=== PATIENT | female | born 1970 | race Caucasian/White ===

== ENCOUNTER 2016-09-23 13:03 | Emergency (ER) ==
[2016-09-23 13:11] VITALS: BP 170/117; TEMP 97; BMI 38.0
[2016-09-23] MEDS ORDERED: NORVASC PO STA (13:30)
[2016-09-23 13:45] LABS: BASOPHILS % (AUTO) 0.5 % (0.0-3.0); EOSINOPHILS # (AUTO) 0.4 K/ul (0.0-0.7); EOSINOPHILS % (AUTO) 4.7 % (0.0-7.0); HEMATOCRIT 40.8 % (37.0-47.0); HEMOGLOBIN 13.2 g/dl (12.0-16.0); IMMATURE GRANULOCYTE % (AUTO) 0.5 % (0.0-5.0); LYMPHOCYTES # (AUTO) 3.3 K/uL (0.60-3.4); LYMPHOCYTES % (AUTO) 38.3 (10.0-50.0); MEAN CORPUSCULAR HEMOGLOBIN 28.4 pg (27.0-31.0); MEAN CORPUSCULAR HGB CONC 32.4 (31.8-35.4); MEAN CORPUSCULAR VOLUME 87.9 fl (81.0-99.0); MONOCYTES # (AUTO) 0.5 K/uL (0.4-2.0); MONOCYTES % (AUTO) 6.1 (0-10); NEUTROPHILS # (AUTO) 4.3 K/ul (2.0-6.9); NEUTROPHILS % (AUTO) 49.9; PLATELET COUNT 256 10^3/uL (140-440); RED BLOOD COUNT 4.64 10^6/ul (4.20-5.40); WHITE BLOOD COUNT 8.65 K/ul (4.6-10.2)
--- NOTE | 2016-09-23 14:00 | CT ---
EXAM: CT head without contrast. HISTORY: Dizziness. Elevated blood pressure. COMPARISON: None available. TECHNIQUE: Multiple axial images of the brain were obtained from the skull base through the vertex without intravenous contrast. FINDINGS: There is no intracranial hemorrhage or extraaxial collection. The rogers-white differentia tion is maintained without evidence for acute large vascular territory infarction. The cortical sul ci and basal cisterns are well visualized. There is no hydrocephalus, mass effect, or midline shift . The paranasal sinuses and mastoid air cells are clear. The calvarium is intact. IMPRESSION: No acute intracranial abnormality.
[2016-09-23 14:20] LABS: ALANINE AMINOTRANSFERASE 55 U/L (12-78); ALBUMIN/GLOBULIN RATIO 1.21; ALKALINE PHOSPHATASE 92 U/L (42-98); ANION GAP 15.2; ASPARTATE AMINO TRANSFERASE 54 U/L (15-37); BILIRUBIN,TOTAL 0.63 mg/dL (0.00-1.20); BLOOD UREA NITROGEN 7 mg/dL (7-18); BUN/CREATININE RATIO 9.45; CALCIUM 9.9 mg/dL (8.2-10.2); CARBON DIOXIDE 29 mmol/L (21-32); CHLORIDE 104 mmol/L (98-107); CREATINE KINASE 125 U/L; CREATININE 0.74 mg/dL (0.60-1.30); GLUCOSE 111 mg/dL (70-110); POTASSIUM 4.2 mmol/L (3.5-5.10); SODIUM 144 mmol/L (136-145); TOTAL PROTEIN 7.3 g/dL (6.4-8.2)
[2016-09-23 14:22] LABS: CREATINE KINASE MB 1.4 ng/ml (0.0-3.6)
--- NOTE | 2016-09-23 14:59 | ED.PDOC ---
General ED Provider: Dr. COLETTE MENDOSA-ER Chief Complaint: Dizziness Stated Complaint: my eye hurts--dr acosta did surgtery on on 5 years ago Time Seen by Physician: 13:05 Mode of Arrival: Walk-In Information Source: Patient, Family Exam Limitations: No limitations Primary Care Provider: LYNN MAHARAJ Nursing and Triage Documentation Reviewed and Agree: Yes EENT Complaint Exam - Eye Complaint/Exam Onset/Duration: 12hrs Symptoms Are: Still present Timing: Constant Initial Severity: Mild Current Severity: Mild Location: Left Character: Reports: Dull Aggravating: Reports: Light Alleviating: Reports: Darkness Associated Signs and Symptoms: Reports: Photophobia. Denies: Clear drainage, Purulent drainage, Vision impairment, Fever, Swelling Related History: Reports: Similar episode Eye Surgical History: Reports: Glaucoma Surgery Penetrating Injury Risk Factors: None Globe Rupture Risk Factors: None Acute Glaucoma Risk Factors: None Optic Artery Occlusion Risk Factors: None Visual Acuity Left Eye: diminished Visual Field: Abnormal Extraocular Movement: Normal Orbit Findings: Normal Globe Findings: Intact Lid Findings: Normal Conjunctival Findings: Red Corneal Findings: Clear Fluorescein Uptake: No Fundi: Normal Differential Diagnoses: Other Review of Systems - Review Of Systems Constitutional: Reports: No symptoms Eyes: Reports: Inflammation, Pain, Shadows Ears, Nose, Mouth, Throat: Reports: No symptoms Respiratory: Reports: No symptoms Cardiac: Reports: No symptoms GI: Reports: No symptoms : Reports: No symptoms Musculoskeletal: Reports: No symptoms Skin: Reports: No symptoms Neurological: Reports: No symptoms Endocrine: Reports: No symptoms Hematologic/Lymphatic: Reports: No symptoms All Other Systems: Reviewed and Negative Past Medical History - Past Medical History Endocrine: Reports: Hypothyroid, Dyslipidemia Cardiovascular: Reports: CAD, Hypertension Respiratory: Reports: None Hematological: Reports: None Gastrointestinal: Reports: None Genitourinary: Reports: None Neuro/Psych: Reports: None Musculoskeletal: Reports: Unknown Cancer: Reports: None Last Menstrual Period: N/A Other Pertinent Past Medical History: Arthritis, Glaucoma - Surgical History General Surgical History: Reports: Tubal ligation (25 years ago ), Other (Left eye surgery x 2 ) - Family History Family History: Reports: None - Social History Smoking Status: Former smoker Hx Substance Use: No Alcohol Screening: None Lives: With family - Immunizations Tetanus Shot up to Date: Yes Physical Exam - Physical Exam Appearance: Well-appearing Pain Distress: Mild Eyes: Conjunctiva inflammed ENT: Ears normal, Nose normal, Oropharynx normal Neck: Supple Respiratory: Airway patent Cardiovascular: RRR, Pulses normal, No rub, No murmur GI/: Soft Musculoskeletal: Normal strength, ROM intact, No edema, No calf tenderness Skin: Warm, Dry, Normal color Neurological: Sensation intact, Motor intact, Reflexes intact, Cranial nerves intact, Alert, Oriented Psychiatric: Affect appropriate Physician Notification - Case Discussed Physician Notified: dr wheeler--asked she come to the office at 4pm Time of Notification: 15:00 Critical Care Note - Critical Care Note Total Time (mins): 0 Course - Course Hematology/Chemistry: 09/23/16 13:40 09/23/16 13:40 Orders, Labs, Meds: Lab Review 09/23/16 13:40 WBC 8.65 RBC 4.64 Hgb 13.2 Hct 40.8 MCV 87.9 MCH 28.4 MCHC 32.4 RDW Coeff of Lalo 13.8 Plt Count 256 Immature Gran % (Auto) 0.5 Neut % (Auto) 49.9 Lymph % (Auto) 38.3 Kings % (Auto) 6.1 Eos % (Auto) 4.7 Baso % (Auto) 0.5 Immature Gran # (Auto) 0.0 Neut # 4.3 Lymph # 3.3 Kings # 0.5 Eos # 0.4 Baso # 0.0 Sodium 144 Potassium 4.2 Chloride 104 Carbon Dioxide 29 Anion Gap 15.2 BUN 7 Creatinine 0.74 Estimated GFR (MDRD) 84.00 BUN/Creatinine Ratio 9.45 Glucose 111 H Calcium 9.9 Total Bilirubin 0.63 AST 54 H ALT 55 Alkaline Phosphatase 92 Total Creatine Kinase 125 CK-MB (CK-2) 1.4 CK-MB (CK-2) % 1.76952 Troponin I < 0.0100 Total Protein 7.3 Albumin 4.0 Globulin 3.3 Albumin/Globulin Ratio 1.21 Orders Category Date Time Status EKG-(ED ONLY) Stat CARDIO 09/23/16 13:29 Completed CBC W/ AUTO DIFF Stat LAB 09/23/16 13:40 Completed COMPREHENSIVE METABOLIC PANEL Stat LAB 09/23/16 13:40 Completed CREATINE KINASE Stat LAB 09/23/16 13:40 Completed TROPONIN I Stat LAB 09/23/16 13:40 Completed Amlodipine Besylate [Norvasc] MEDS 09/23/16 13:30 Discontinued 5 mg PO ONCE STA CT HEAD W/O CONTRAST Stat RADS 09/23/16 13:30 Completed Medications Discontinued Medications Generic Name Dose Route Start Last Admin Trade Name Smith PRN Reason Stop Dose Admin Amlodipine Besylate 5 mg 09/23/16 13:30 09/23/16 13:41 Norvasc PO 09/23/16 13:31 5 mg ONCE STA Administration Vital Signs: Temp Pulse Resp BP Pulse Ox 09/23/16 13:03 97 F L 69 20 170/117 H 98 Departure - Departure Time of Disposition: 15:00 Disposition: HOME SELF-CARE Discharge Problem: Pain in eye Qualifiers: Laterality: left Qualifier Code: (H57.12) Ocular pain, left eye Instructions: Eye Pain (ED), Blurred Vision (ED) Condition: Good Pt referred to PMD for follow-up: Yes Additional Instructions: f/u with dr wheeler today at 4pm Allergies/Adverse Reactions: Allergies acetaminophen [From Lortab] Adverse Reaction (Intermediate, Verified 09/23/16 13 :13) Itching hydrocodone bitartrate [From Lortab] Adverse Reaction (Intermediate, Verified 13:13) Itching codeine [Codeine] Adverse Reaction (Verified 09/23/16 13:13) egg Adverse Reaction (Verified 09/23/16 13:13) lanolin Adverse Reaction (Verified 09/23/16 13:13) prednisone Adverse Reaction (Verified 09/23/16 13:13) onions Allergy (Severe, Uncoded 09/23/16 13:13) tongue itchy and numbness bottom lip peanuts Allergy (Mild, Uncoded 09/23/16 13:13) nausea tomatoes Allergy (Mild, Uncoded 09/23/16 13:13) Hawkins stomach Tape Adverse Reaction (Mild, Uncoded 09/23/16 13:13) Itching Pt reports that paper tape does not cause itching. Home Medications: Ambulatory Orders Albuterol Sulfate [Proventil Hfa] 1 puff INH BID 01/30/14 Aspirin [Aspirin EC] 325 mg PO DAILY 01/30/14 Timolol Maleate 0.5% [Timoptic 0.5% Opth] 1 drop INTRAOCULA BID 01/30/14 Disposition Discussed With: Patient, Family
== END 2016-09-23 15:06 | disposition home or self-care (01) ==
LOC: ED 13:03
DX: H57.12 Ocular pain, left eye (principal); R42 Dizziness and giddiness; E78.5 Hyperlipidemia, unspecified; I10 Essential (primary) hypertension; E03.9 Hypothyroidism, unspecified; I25.10 Atherosclerotic heart disease of native coronary artery without angina pectoris; Z79.899 Other long term (current) drug therapy; Z98.890 Other specified postprocedural states
CPT/HCPCS: 36415; 80053; 82550; 82553; 84484; 85025; 93005; 93010; 99283

== ENCOUNTER 2017-02-17 05:17 | Inpatient (IN) | payer OTHER ==
[2017-02-17 05:27] VITALS: BMI 35.6
[2017-02-17] MEDS ORDERED: SODIUM CHLORIDE 1,000 ML IV STA (05:40)
[2017-02-17] MEDS ORDERED: ROCEPHIN 1 GM in SODIUM CHLORIDE 50 ML IV STA (05:41)
[2017-02-17] MEDS ORDERED: MOTRIN SUSP PO STA ×2 (05:42→16:29)
--- NOTE | 2017-02-17 05:53 | ED.PDOC ---
General Stated Complaint: i think i have a kidney infection--it hurts in my back and i have fever and chills Time Seen by Physician: 05:30 Mode of Arrival: Walk-In Information Source: Patient Exam Limitations: No limitations Nursing and Triage Documentation Reviewed and Agree: Yes <MARCELACOLETTE - Last Filed: 02/17/17 06:56> <ELOY BARKLEY - Last Filed: 02/17/17 08:12> ED Provider: Dr. ELOY BARKLEY Chief Complaint: Back Pain [facility] Complaint Exam - UTI Female Complaint/Exam Patient Complains of: Reports: Painful urination Onset/Duration: less than 24hrs Symptoms Are: Still present Timing: Constant Initial Severity: Mild Current Severity: Mild Location of Pain: Reports: Flank Associated Signs and Symptoms: Reports: Fever, Chills, Flank pain Patient Rh Status: Unknown Related Surgical History: Reports: None CVA Tenderness: Yes Suprapubic Tenderness: No Differential Diagnoses: Pyelonephritis, Ureteral Calculus, Other <MARCELACOLETTE - Last Filed: 02/17/17 06:56> Review of Systems - Review Of Systems Constitutional: Reports: Chills, Fever Eyes: Reports: No symptoms Ears, Nose, Mouth, Throat: Reports: No symptoms Respiratory: Reports: No symptoms Cardiac: Reports: No symptoms GI: Reports: Abdominal pain, Nausea : Reports: Burning, Dysuria, Flank pain, Pain Musculoskeletal: Reports: Back pain Skin: Reports: No symptoms Neurological: Reports: No symptoms Endocrine: Reports: No symptoms Hematologic/Lymphatic: Reports: No symptoms All Other Systems: Reviewed and Negative <GUYLEONCOLETTE - Last Filed: 02/17/17 06:56> Past Medical History - Past Medical History Previously Healthy: Yes Endocrine: Reports: Hypothyroid, Dyslipidemia Cardiovascular: Reports: CAD, Hypertension Respiratory: Reports: None Hematological: Reports: None Gastrointestinal: Reports: None Genitourinary: Reports: None Neuro/Psych: Reports: None Musculoskeletal: Reports: Unknown Cancer: Reports: None Last Menstrual Period: 2 yrs ago Other Pertinent Past Medical History: Arthritis, Glaucoma - Surgical History General Surgical History: Reports: Tubal ligation (25 years ago ), Other (Left eye surgery x 2 ) - Family History Family History: Reports: None - Social History Smoking Status: Former smoker Hx Substance Use: No Alcohol Screening: None Lives: With family - Immunizations Tetanus Shot up to Date: Yes (2011) <COLETTE MEDRANO - Last Filed: 02/17/17 06:56> Physical Exam - Physical Exam Appearance: Ill-appearing Pain Distress: Mild Eyes: DELORES, EOMI, Conjunctiva clear ENT: Ears normal, Nose normal, Oropharynx normal Neck: Supple Respiratory: Airway patent, Breath sounds clear, Breath sounds equal, Respirations nonlabored Cardiovascular: RRR, Pulses normal, No rub, No murmur GI/: Soft, Nontender, No masses, Bowel sounds normal, No Organomegaly Musculoskeletal: Normal strength, ROM intact, No edema, No calf tenderness Skin: Warm Neurological: Sensation intact, Motor intact, Reflexes intact, Cranial nerves intact, Alert, Oriented Psychiatric: Affect appropriate, Mood appropriate, Anxious <COLETTE MEDRANO Last Filed: 02/17/17 06:56> Re-Evaluation - Re-Evaluation Time of Re-Evaluation: 08:00 (OFFERED NO OTHER COMPLAINTS AT THIS TIME ADMISSION DISCUSSED ) Status: Improved Vital Signs Stable: Yes Pain Level: 0 Appearance: NAD Lungs: Clear Skin: Warm and Dry Neuro: Alert and Oriented X3 CV: RRR <ELOY BARKLEY - Last Filed: 02/17/17 08:12> Physician Notification - Case Discussed Physician Notified: dr barkley Time of Notification: 07:00 <COLETTE MEDRANO - Last Filed: 02/17/17 06:56> - Case Discussed Physician Notified: [email or web address] Time of Notification: 08:11 (ADMITT) <ELOY BARKLEY Last Filed: 02/17/17 08:12> Critical Care Note - Critical Care Note Total Time (mins): 0 <ELOY BARKLEY Last Filed: 02/17/17 08:12> Course - Course Hematology/Chemistry: 02/17/17 06:00 02/17/17 06:00 <COLETTE MEDRANO - Last Filed: 02/17/17 06:56> - Course Hematology/Chemistry: 02/17/17 06:00 02/17/17 06:00 <ELOY BARKLEY Last Filed: 02/17/17 08:12> - Course Orders, Labs, Meds: Lab Review 02/17/17 02/17/17 02/17/17 05:45 05:48 06:00 WBC 10.31 H RBC 4.78 Hgb 13.8 Hct 41.2 MCV 86.2 MCH 28.9 MCHC 33.5 RDW Coeff of Lalo 14.2 Plt Count 218 Immature Gran % (Auto) 0.5 Neut % (Auto) 83.8 Lymph % (Auto) 11.0 [place] % (Auto) 3.0 Eos % (Auto) 1.4 Baso % (Auto) 0.3 Immature Gran # (Auto) 0.1 Neut # 8.7 H Lymph # 1.1 [place] # 0.3 L Eos # 0.1 Baso # 0.0 ESR 56 H Sodium 140 Potassium 3.7 Chloride 105 Carbon Dioxide 23 Anion Gap 15.7 BUN 9 Creatinine 0.84 Estimated GFR (MDRD) 72.00 BUN/Creatinine Ratio 10.71 Glucose 118 H Lactic Acid 22.5 H Calcium 9.9 Total Bilirubin 1.05 AST 30 ALT 37 Alkaline Phosphatase 99 H Total Creatine Kinase 217 CK-MB (CK-2) 1.5 CK-MB (CK-2) % 0.32932 Troponin I < 0.0100 Total Protein 8.1 Albumin 4.0 Globulin 4.1 Albumin/Globulin Ratio 0.98 Amylase 24 L Lipase 15 Procalcitonin 0.19 Urine Color Yellow Urine Clarity Cloudy Urine pH 5.5 Ur Specific Wheeler 1.020 Urine Protein 3+ Urine Glucose (UA) Negative Urine Ketones Negative Urine Blood 2+ Urine Nitrite Positive Urine Bilirubin Negative Urine Urobilinogen 0.2 Ur Leukocyte Esterase 1+ Urine Microscopic RBC 2-5 Urine Microscopic WBC 10-20 Ur Squamous Epith Cells Not present Urine Bacteria 2+ Influenza A (Rapid) Negative Influenza B (Rapid) Negative Orders Category Date Time Status EKG-(ED ONLY) Stat CARDIO 02/17/17 05:39 Ordered IV [ED IV/MEDIPORT/POWERPORT] .ONCE EMERGENCY 02/17/17 05:39 Active AMYLASE Stat LAB 02/17/17 06:00 Completed BLOOD CULTURE Stat LAB 02/17/17 06:00 Received CBC W/ AUTO DIFF Stat LAB 02/17/17 06:00 Completed COMPREHENSIVE METABOLIC PANEL Stat LAB 02/17/17 06:00 Completed CREATINE KINASE Stat LAB 02/17/17 06:00 Completed ESR Stat LAB 02/17/17 06:00 Completed LACTIC ACID Stat LAB 02/17/17 06:00 Completed LIPASE Stat LAB 02/17/17 06:00 Completed MOLECULAR GROUP A STREP Stat LAB 02/17/17 05:48 Results PROCALCITONIN Stat LAB 02/17/17 06:00 Completed RAPID FLU A/B Stat LAB 02/17/17 05:48 Completed STREP SCREEN Stat LAB 02/17/17 05:48 Results TROPONIN I Stat LAB 02/17/17 06:00 Completed URINALYSIS C & S IF INDICATED Stat LAB 02/17/17 05:45 Completed URINE CULTURE Stat LAB 02/17/17 06:18 Received 0.9 % Sodium Chloride [Saline Flush] MEDS 02/17/17 05:39 Active 1 syr IVF PRN PRN Ceftriaxone Sodium [Rocephin] MEDS 02/17/17 06:30 Discontinued 1 gm .ROUTE .STK-MED ONE Ceftriaxone Sodium [Rocephin] 1 gm MEDS 02/17/17 05:41 Discontinued 0.9 % Sodium Chloride [Sodium Chloride] 50 ml IV ONCE Ibuprofen Susp [Motrin Susp] MEDS 02/17/17 05:42 Discontinued 600 mg PO ONCE STA Lidocaine HCl/Pf [Lidocaine 1 % Amp 5 ml (Sutures)] MEDS 02/17/17 06:21 Discontinued 5 ml SUBCUT ONCE STA Sodium Chloride 0.9% [Sodium Chloride] 1,000 ml MEDS 02/17/17 05:40 Active IV 125 mls/hr CT ABDOMEN/PELVIS WO CONTRAST Stat RADS 02/17/17 05:[address] CHEST W/O CONTRAST Stat RADS 02/17/17 05:41 Completed Medications Generic Name Dose Route Start Last Admin Trade Name Freq PRN Reason Stop Dose Admin Sodium Chloride 1,000 mls @ 125 mls/hr 02/17/17 05:40 02/17/17 06:38 Sodium Chloride IV 02/17/17 13:39 125 mls/hr .Q8H STA Administration Sodium Chloride 1 syr 02/17/17 05:39 Saline Flush IVF PRN PRN To flush IV Discontinued Medications Generic Name Dose Route Start Last Admin Trade Name Freq PRN Reason Stop Dose Admin Ceftriaxone Sodium 1 gm/ 50 mls @ 75 mls/hr 02/17/17 05:41 02/17/17 06:38 Sodium Chloride IV 02/17/17 06:20 75 mls/hr ONCE STA Administration Ibuprofen 600 mg 02/17/17 05:42 02/17/17 06:08 Motrin Susp PO 02/17/17 05:43 600 mg ONCE STA Administration Lidocaine HCl 5 ml 02/17/17 06:21 02/17/17 06:29 Lidocaine 1 % Amp 5 Ml (Sutures) SUBCUT 02/17/17 06:22 5 ml ONCE STA Administration Vital Signs: Temp Pulse Resp BP Pulse Ox 02/17/17 07:52 100.2 F H 02/17/17 05:19 102.2 F H 102 H 21 183/125 H 100 Departure <COLETTE MEDRANO - Last Filed: 02/17/17 06:56> - Departure Time of Disposition: 08:08 (obtained report from guy TALAVERA at 7 [address] pt off to [address] SCAN , seen pt at [address] report discuused along with all labs hattie and sita present , pt agrees with admission) Pt referred to PMD for follow-up: Yes (admitt) <ELOY BARKLEY - Last Filed: 02/17/17 08:12> - Departure Disposition: ADMITTED INPATIENT Discharge Problem: UTI (urinary tract infection) Qualifiers: Urinary tract infection type: site unspecified Instructions: Urinary Tract Infection in Women (ED) Condition: Good Allergies/Adverse Reactions: Allergies acetaminophen [From Lortab] Adverse Reaction (Intermediate, Verified 02/17/17 05 :42) Itching hydrocodone bitartrate [From Lortab] Adverse Reaction (Intermediate, Verified 05:42) Itching codeine [Codeine] Adverse Reaction (Verified 02/17/17 05:42) egg Adverse Reaction (Verified 02/17/17 05:42) lanolin Adverse Reaction (Verified 02/17/17 05:42) prednisone Adverse Reaction (Verified 02/17/17 05:42) onions Allergy (Severe, Uncoded 02/17/17 05:42) tongue itchy and numbness bottom lip peanuts Allergy (Mild, Uncoded 02/17/17 05:42) nausea tomatoes Allergy (Mild, Uncoded 02/17/17 05:42) Hawkins stomach Tape Adverse Reaction (Mild, Uncoded 02/17/17 05:42) Itching Pt reports that paper tape does not cause itching. Home Medications: Ambulatory Orders Albuterol Sulfate [Proventil Hfa] 1 puff INH BID 01/30/14 Aspirin [Aspirin EC] 325 mg PO DAILY 01/30/14 Timolol Maleate 0.5% [Timoptic 0.5% Opth] 1 drop INTRAOCULA BID 01/30/14 Latanoprost [Xalatan] 1 drop OP BEDTIME 02/17/17
[2017-02-17 06:05] LABS: BASOPHILS % (AUTO) 0.3 % (0.0-3.0); EOSINOPHILS # (AUTO) 0.1 K/ul (0.0-0.7); EOSINOPHILS % (AUTO) 1.4 % (0.0-7.0); HEMATOCRIT 41.2 % (37.0-47.0); HEMOGLOBIN 13.8 g/dl (12.0-16.0); IMMATURE GRANULOCYTE % (AUTO) 0.5 % (0.0-5.0); LYMPHOCYTES # (AUTO) 1.1 K/uL (0.60-3.4); MEAN CORPUSCULAR HEMOGLOBIN 28.9 pg (27.0-31.0); MEAN CORPUSCULAR HGB CONC 33.5 (31.8-35.4); MEAN CORPUSCULAR VOLUME 86.2 fl (81.0-99.0); MONOCYTES # (AUTO) 0.3 K/uL (0.4-2.0); NEUTROPHILS # (AUTO) 8.7 K/ul (2.0-6.9); NEUTROPHILS % (AUTO) 83.8; PLATELET COUNT 218 10^3/uL (140-440); RED BLOOD COUNT 4.78 10^6/ul (4.20-5.40); WHITE BLOOD COUNT 10.31 K/ul (4.6-10.2)
[2017-02-17 06:10] LABS: BILIRUBIN,URINE Negative (NEGATIVE); KETONES,URINE Negative (NEGATIVE); LEUKOCYTE ESTERASE ,URINE 1+ (NEGATIVE); NITRITE,URINE Positive (NEGATIVE); PH,URINE 5.5 (5-9); PROTEIN,URINE 3+ (NEGATIVE); URINE, BLOOD 2+ (NEGATIVE)
[2017-02-17 06:14] LABS: ADD URINE MICROSCOPIC YES
[2017-02-17 06:18] LABS: BACTERIA,URINE 2+ (NOT PRESENT)
[2017-02-17 06:21] LABS: FLU INTERNAL QC INTERNAL QC VALID; RAPID FLU A NEGATIVE (NEGATIVE); RAPID FLU B NEGATIVE (NEGATIVE)
[2017-02-17] MEDS ORDERED: LIDOCAINE 1 % AMP 5 ML (SUTURES) SUBCUT STA (06:21)
[2017-02-17] MEDS ORDERED: ROCEPHIN ONE (06:30)
--- NOTE | 2017-02-17 06:35 | ED.PDOC ---
Procedures - IV/Art Line Insertion Location: Rt wrist Type of Line: Peripheral IV Invasive Line/IV Catheter Gauge: 24 Number of Attempts: 1 Blood Return Positive: Yes Invasive Line/IV Flushes Without Difficulty: Yes Conscious Sedation - Pre-op Assessment Weight: 195 lb Surgical History: TUBAL at 20 years old. LEFT EYE X1. GLAUCOMA - Medical History Past Medical History: Hypertension, Thyroid, High Lipids, Asthma, Arthritis Other History: NONE - Physical Exam Heart Rate/Rhythm: Regular Rhythm
[2017-02-17 06:37] LABS: ERYTHROCYTE SEDIMENTATION RATE 56 mm/hr (0-20); ESR INTERNAL QC INTERNAL QC VALID
[2017-02-17 06:41] LABS: ALANINE AMINOTRANSFERASE 37 U/L (12-78); ALBUMIN/GLOBULIN RATIO 0.98; ALKALINE PHOSPHATASE 99 U/L (42-98); AMYLASE 24 U/L (25-115); ANION GAP 15.7; ASPARTATE AMINO TRANSFERASE 30 U/L (15-37); BILIRUBIN,TOTAL 1.05 mg/dL (0.00-1.20); BLOOD UREA NITROGEN 9 mg/dL (7-18); BUN/CREATININE RATIO 10.71; CALCIUM 9.9 mg/dL (8.2-10.2); CARBON DIOXIDE 23 mmol/L (21-32); CHLORIDE 105 mmol/L (98-107); CREATINE KINASE 217 U/L; CREATININE 0.84 mg/dL (0.60-1.30); GLUCOSE 118 mg/dL (70-110); LIPASE 15 U/L (8-78); POTASSIUM 3.7 mmol/L (3.5-5.10); SODIUM 140 mmol/L (136-145); TOTAL PROTEIN 8.1 g/dL (6.4-8.2)
[2017-02-17 06:42] LABS: CREATINE KINASE MB 1.5 ng/ml (0.0-3.6)
--- NOTE | 2017-02-17 07:27 | CT ---
Exam: CT of the chest without contrast History: Fever and cough Technique: [address] of the chest without intravascular contrast FINDINGS: The lung windows show no infiltrative opacities, pleural fluid or pneumothorax. There is a 3.4 mm nodule in the right lower lobe. Additional equivalent or smaller nodules of the right and left lower lobe. Minor atherosclerotic calcification of the aorta. The heart, great vessels and pe ricardium are unremarkable otherwise. No acute findings of the chest wall soft tissues or bony thor ax. Impression: 1. Right lower lobe 3.4 mm nodule stable from 02/02/2015, benign. Additional equivalent or smaller nodules in the lower lobes are also stable. 2. Negative exam otherwise.
--- NOTE | 2017-02-17 07:36 | CT ---
EXAM: CT abdomen pelvis without contrast HISTORY: Flank pain, fever COMPARISON: 07/03/2016 TECHNIQUE: CT abdomen pelvis performed without intravenous contrast. Coronal and sagittal reformat irena images obtained. FINDINGS: Please refer to separate report CT chest regarding findings in the lower chest noted noemy ral stable basilar nodules. No free air. No acute abnormalities of the bones. There is degenerati ve change in the spine. Evaluation organ parenchyma limited without contrast. Liver is enlarged. Gallbladder appears normal. Several mildly prominent quynh hepatic lymph nodes are unchanged. Panc reas appears normal. Spleen appears normal. Adrenals appear normal. Aorta normal in caliber. Mil d atherosclerosis. Uterus unremarkable. No hydronephrosis or nephrolithiasis. No calculi visualiz ed in the normal course of the ureters. Bladder unremarkable. Small fat-containing umbilical herni a. No ascites. Stomach appears normal. No dilated loops small bowel. Appendix appears normal. C olon unremarkable. No inflammatory stranding identified in the abdomen or pelvis. IMPRESSION: 1. No hydronephrosis or nephrolithiasis. No acute inflammatory process identified in the abdomen o r pelvis. 2. Hepatomegaly. 3. Several mildly prominent quynh hepatic lymph nodes are unchanged and may relate to underlying li julián disease.
[2017-02-17] MEDS: SODIUM CHLORIDE 1,000 ML IV SCH ×2 (08:30→18:25)
[2017-02-17] MEDS ORDERED: ALBUTEROL 0.083% NEB NEB PRN (08:46)
[2017-02-17] MEDS ORDERED: PROAIR HFA IH PRN (08:46)
[2017-02-17] MEDS ORDERED: NON-FORMULARY MEDICATION (Levothyroxine Sodium [Synthroid] 125 MCG) PO SCH ×22 (09:00)
[2017-02-17] MEDS ORDERED: TIMOPTIC 0.5% OPTH OP SCH (09:00)
[2017-02-17] MEDS ORDERED: ASPIRIN EC PO SCH (09:00)
[2017-02-17] MEDS ORDERED: NON-FORMULARY MEDICATION (Metoprolol Tartrate [Metoprolol Tartrate] 100 MG) PO SCH (09:00)
[2017-02-17] MEDS ORDERED: NITROSTAT SL SCH (09:00)
[2017-02-17] MEDS ORDERED: NON-FORMULARY MEDICATION (Clonidine Hcl [Clonidine Hcl] 0.3 MG) PO SCH (09:00)
[2017-02-17] MEDS ORDERED: NITROSTAT SL PRN (09:16)
[2017-02-17] MEDS: PROAIR HFA IH SCH (09:27)
[2017-02-17] MEDS: LOPRESSOR PO SCH ×2 (09:28→20:40)
[2017-02-17] MEDS: ASPIRIN EC PO SCH (09:28)
[2017-02-17] MEDS: CARDIZEM PO SCH ×2 (09:28→20:54)
[2017-02-17] MEDS: FLEXERIL PO SCH ×3 (09:29→20:40)
[2017-02-17] MEDS ORDERED: CATAPRES PO STA (09:33)
[2017-02-17] MEDS ORDERED: SYNTHROID PO STA ×2 (09:33)
[2017-02-17] MEDS: CATAPRES PO SCH ×2 (14:41→20:40)
[2017-02-17 15:06] LABS: CREATINE KINASE 151 U/L
[2017-02-17] MEDS ORDERED: MOTRIN PO STA (16:36)
[2017-02-17] MEDS ORDERED: MOTRIN PO PRN (19:49)
[2017-02-17] MEDS: ELAVIL PO SCH (20:39)
[2017-02-17] MEDS: XALATAN OP SCH (20:42)
[2017-02-17] MEDS: TIMOPTIC 0.5% OPTH OP SCH (20:42)
[2017-02-17] MEDS ORDERED: VANCOMYCIN 1 GM in SODIUM CHLORIDE 250 ML IV STA (20:43)
[2017-02-17] MEDS ORDERED: CARDIZEM ONE (20:49)
[2017-02-17] MEDS: TORADOL IVP PRN (20:58)
[2017-02-17] MEDS ORDERED: AMITRIPTYLINE HCL 50 MG PO SCH ×22 (21:00)
[2017-02-17] MEDS ORDERED: XALATAN OP SCH (21:00)
[2017-02-17 23:16] LABS: CREATINE KINASE 140 U/L
[2017-02-17 23:17] LABS: CREATINE KINASE MB 0.8 ng/ml (0.0-3.6)
[2017-02-18 04:43] LABS: BASOPHILS % (AUTO) 0.3 % (0.0-3.0); EOSINOPHILS # (AUTO) 0.1 K/ul (0.0-0.7); HEMATOCRIT 35.5 % (37.0-47.0); HEMOGLOBIN 11.8 g/dl (12.0-16.0); IMMATURE GRANULOCYTE % (AUTO) 0.6 % (0.0-5.0); LYMPHOCYTES % (AUTO) 10.1 (10.0-50.0); MEAN CORPUSCULAR HEMOGLOBIN 28.9 pg (27.0-31.0); MEAN CORPUSCULAR HGB CONC 33.2 (31.8-35.4); MEAN CORPUSCULAR VOLUME 86.8 fl (81.0-99.0); MONOCYTES # (AUTO) 0.2 K/uL (0.4-2.0); MONOCYTES % (AUTO) 1.7 (0-10); NEUTROPHILS # (AUTO) 8.2 K/ul (2.0-6.9); NEUTROPHILS % (AUTO) 86.3; PLATELET COUNT 192 10^3/uL (140-440); RED BLOOD COUNT 4.09 10^6/ul (4.20-5.40); WHITE BLOOD COUNT 9.56 K/ul (4.6-10.2)
[2017-02-18] MEDS: TORADOL IVP PRN ×2 (04:51→14:48)
[2017-02-18 05:05] LABS: ALBUMIN/GLOBULIN RATIO 0.88; ANION GAP 12.6; BILIRUBIN,TOTAL 0.81 mg/dL (0.00-1.20); BUN/CREATININE RATIO 10.95; CALCIUM 8.6 mg/dL (8.2-10.2); CREATININE 0.73 mg/dL (0.60-1.30); POTASSIUM 3.6 mmol/L (3.5-5.10); TOTAL PROTEIN 6.4 g/dL (6.4-8.2)
[2017-02-18] MEDS: SYNTHROID PO SCH ×2 (05:42)
[2017-02-18] MEDS ORDERED: ROCEPHIN 1 GM in SODIUM CHLORIDE 50 ML IV SCH (07:00)
[2017-02-18] MEDS: ROCEPHIN 1 GM in SODIUM CHLORIDE 50 ML IV SCH (07:59)
[2017-02-18] MEDS: CARDIZEM PO SCH ×2 (08:17→20:24)
[2017-02-18] MEDS: ASPIRIN EC PO SCH (08:17)
[2017-02-18] MEDS: CATAPRES PO SCH ×3 (08:18→20:22)
[2017-02-18] MEDS: FLEXERIL PO SCH ×3 (08:18→20:24)
[2017-02-18] MEDS: PROAIR HFA IH SCH (08:19)
[2017-02-18] MEDS: TIMOPTIC 0.5% OPTH OP SCH ×2 (08:19→20:24)
[2017-02-18] MEDS: LOPRESSOR PO SCH ×2 (08:19→20:23)
[2017-02-18] MEDS: SODIUM CHLORIDE 1,000 ML IV SCH ×3 (08:21→20:45)
[2017-02-18] MEDS: ELAVIL PO SCH (20:23)
[2017-02-18] MEDS: XALATAN OP SCH (20:24)
[2017-02-19 04:32] LABS: BASOPHILS % (AUTO) 0.5 % (0.0-3.0); EOSINOPHILS # (AUTO) 0.5 K/ul (0.0-0.7); EOSINOPHILS % (AUTO) 6.8 % (0.0-7.0); HEMATOCRIT 33.7 % (37.0-47.0); HEMOGLOBIN 11.1 g/dl (12.0-16.0); IMMATURE GRANULOCYTE % (AUTO) 0.5 % (0.0-5.0); LYMPHOCYTES # (AUTO) 2.6 K/uL (0.60-3.4); LYMPHOCYTES % (AUTO) 34.1 (10.0-50.0); MEAN CORPUSCULAR HEMOGLOBIN 28.6 pg (27.0-31.0); MEAN CORPUSCULAR HGB CONC 32.9 (31.8-35.4); MEAN CORPUSCULAR VOLUME 86.9 fl (81.0-99.0); MONOCYTES # (AUTO) 0.6 K/uL (0.4-2.0); MONOCYTES % (AUTO) 7.7 (0-10); NEUTROPHILS # (AUTO) 3.8 K/ul (2.0-6.9); NEUTROPHILS % (AUTO) 50.4; PLATELET COUNT 198 10^3/uL (140-440); RED BLOOD COUNT 3.88 10^6/ul (4.20-5.40); WHITE BLOOD COUNT 7.54 K/ul (4.6-10.2)
[2017-02-19 04:50] LABS: ANION GAP 11.7; BILIRUBIN,TOTAL 0.48 mg/dL (0.00-1.20); BUN/CREATININE RATIO 10.6; CALCIUM 8.6 mg/dL (8.2-10.2); CREATININE 0.66 mg/dL (0.60-1.30); POTASSIUM 3.7 mmol/L (3.5-5.10)
[2017-02-19] MEDS: SYNTHROID PO SCH ×2 (05:30)
[2017-02-19] MEDS: ASPIRIN EC PO SCH (07:53)
[2017-02-19] MEDS: CATAPRES PO SCH (08:03)
[2017-02-19] MEDS: ROCEPHIN 1 GM in SODIUM CHLORIDE 50 ML IV SCH (08:03)
[2017-02-19] MEDS: PROAIR HFA IH SCH (08:04)
[2017-02-19] MEDS: FLEXERIL PO SCH (08:04)
[2017-02-19] MEDS: LOPRESSOR PO SCH (08:04)
[2017-02-19] MEDS: CARDIZEM PO SCH (08:04)
[2017-02-19] MEDS: TIMOPTIC 0.5% OPTH OP SCH (08:05)
[2017-02-19 10:21] VITALS: BP 110/74; TEMP 96.9
--- NOTE | 2017-02-19 11:40 | PCM.PROG ---
Attending Provider: ATTENDING PROVIDER: Dr. CATHLEEN JONES DATE OF SERVICE: 02/19/17 SUBJECTIVE: This 47 year old WHITE/ F was hospitalized 02/17/17 with UTI. The patient is feeling much better. Urine and blood grew gram negative rods, organism not identified. Urine is clear. No fever after yesterday afternoon 99.8. Right CVA tenderness positive. REVIEW OF SYSTEMS: CONSTITUTIONAL: No fever, no chills. ENDOCRINE: No weight loss or weight gain. HEENT: No sinus drainage, no sore throat. CVS: No angina symptoms. No CHF symptoms. No palpitations. No atypical chest pain for CAD. No shortness of breath. RESPIRATORY: No cough, no hemoptysis. GI: No melena. No abdominal pain. No nausea, no vomiting. : No hematuria. No polyuria. SKIN: No rash. No wounds. MUSCULOSKELETAL: CVA tenderness, right. MEDICAL DERMATOLOGIST: No blackout, no dizziness. No headache. No double vision. PSYCHIATRIC: Not anxious; no depression. No suicidal thoughts. No homicidal thoughts. PHYSICAL EXAMINATION: GENERAL: Lying in bed in no distress. VITAL SIGNS: Temperature 96.8 F, Pulse 63, Respiratory Rate 20, BP 152/92, Pulse Ox 98% HEENT: Normocephalic, atraumatic. Mucosa is dry, pallor positive. NECK: No JVP, no carotid bruit. No lymphadenopathy. CARDIAC: S1, S2, no S3. No murmur, gallop or regurgitation. LUNGS: Clear to auscultation. ABDOMEN: Soft, non-tender. Obese. Bowel sounds active. No rigidity or guarding. Right CVA tenderness. EXTREMITIES: No clubbing, cyanosis or edema. NEUROLOGIC: Awake, alert and oriented x3. LYMPHATIC: No palpable lymph nodes SKIN: Not dry. Intact. MUSCULOSKELETAL: No joint swelling. LAB REVIEW: 02/19/17 04:30 02/19/17 04:30 02/19/17 04:30: WBC 7.54, RBC 3.88 L, Hgb 11.1 L, Hct 33.7 L, MCV 86.9, MCH 28.6 , MCHC 32.9, RDW Coeff of Lalo 14.4, Plt Count 198, Immature Gran % (Auto) 0.5, Neut % (Auto) 50.4, Lymph % (Auto) 34.1, [place] % (Auto) 7.7, Eos % (Auto) 6.8, Baso % (Auto) 0.5, Immature Gran # (Auto) 0.0, Neut # 3.8, Lymph # 2.6, [place] # 0.6, Eos # 0.5, Baso # 0.0, Sodium 141, Potassium 3.7, Chloride 112 H, Carbon Dioxide 21, Anion Gap 11.7, BUN 7, Creatinine 0.66, Estimated GFR (MDRD) 95.00, BUN/Creatinine Ratio 10.60, Glucose 92, Calcium 8.6, Total Bilirubin 0.48, AST 24, ALT 25, Alkaline Phosphatase 73, Total Protein 6.0 L, Albumin 3.0 L, Globulin 3.0, Albumin/Globulin Ratio 1.00 ASSESSMENT: 1. Right acute pyelonephritis. 2. UTI with gram negative rods. 3. Hypertension, labile. 4. Dyslipidemia. 5. Obesity. 6. Osteoarthritis. 7. DJD spine. PLAN: 1. Continue Rocephin 1 gm daily. 2. IV fluids. 3. Out of bed to chair. 4. Activity as tolerated. Plan and coordination of the patient's care discussed in the presence of Grants Officer and nurse. CONDITION: Stable SCRIBED BY: LEONARDO SWIFT Tape Recorder Mechanic scribed while in presence of service performed by Dr. CATHLEEN JONES on 02/19/17 ([id number])
--- NOTE | 2017-02-20 13:21 | HP ---
DATE OF SERVICE: 02/17/17 CHIEF COMPLAINT: "Pain started in the back and goes to the chest, constant, sharp pain" HISTORY OF PRESENT ILLNESS: This is a 47-year-old female, who presented to the ER with pain starting in the back and going to the chest, which is constant and sharp, started early in the morning. She also has frequency and urgency of urination, hurts to urinate. She was having chills. The patient's temperature was 102 when she was in the emergency room. She was initially seen by Dr. Wu. Blood pressure 183/125. White count 10.31, glucose 118, lactic acid elevated 22.5. UA showed leukocyte esterase positive, nitrite positive, bacteria 2+. CT abdomen and pelvis negative but the patient had right-sided CVA tenderness. At that time, the patient was admitted to the hospital for IV antibiotics and treatment for acute right-sided pyelonephritis. REVIEW OF SYSTEMS: CONSTITUTIONAL: Fever and chills. HEENT: Normal. ENDOCRINE: No weight gain; no weight loss. CVS: No chest pain. No PND, no orthopnea. No shortness of breath. No PND, no orthopnea. RESPIRATORY: No cough, no congestion. No hemoptysis. GI: No nausea, no vomiting. No abdominal pain. No melena. : No hematuria. No polyuria. MUSCULOSKELETAL: Right-sided lower back pain, frequency and urgency of urination. PSYCHIATRIC: Not anxious. No depression. No suicidal thoughts. No homicidal thoughts. SKIN: Intact, no open lesions. PAST MEDICAL HISTORY: 1. High blood pressure, labile 2. Dependent edema 3. Asthma 4. Peptic ulcer disease 5. GERD 6. Hypothyroidism 7. Osteoarthritis 8. Recurrent UTI PAST SURGICAL HISTORY: 1. Tubal ligation and surgery for glaucoma PERSONAL HISTORY: Smokes, and lives with the . FAMILY HISTORY: Significant for hypertension, triple A. MEDICATIONS: (HOME) 1. Aspirin 2. Timolol 3. Proventil 4. Nitrostat 5. ProAir 6. Albuterol 7. Synthroid 8. Cyclobenzaprine 9. Diltiazem 10. Coumadin 11. Metoprolol 12. Amitriptyline 13. Latanoprost ALLERGIES: TYLENOL, HYDROCODONE, CODEINE, EGG PHYSICAL EXAMINATION: V/S: Temperature 102.2 in the emergency room and after on the floor 100.2, BP 183/125, respiratory rate 21, heart rate 102. HEENT: Atraumatic, normocephalic. No scleral icterus. Mucosa dry. NECK: Supple. No JVD, no bruit. No lymphadenopathy. No thyromegaly. HEART: S1, S2 normal. No murmur. No cyanosis or clubbing. No ascites. LUNGS: Decreased entry, clear to auscultation. No rales or rhonchi. ABDOMEN: Soft, nontender. Bowel sounds are active. Right CVA tenderness positive. No rigidity or guarding. EXTREMITIES: No cyanosis, clubbing or pedal edema. MUSCULOSKELETAL: Grossly intact. SKIN: Intact; no open lesions. LYMPHATIC: No lymph nodes palpable. LABS: White count 10.31, hemoglobin 13.8, hematocrit 41.2, platelet count 218. Sodium 140, potassium 3.7, chloride 105, bicarb 23, BUN 9, creatinine 0.84, glucose 118 , lactic acid 22.5. Nitrites positive. Leukocyte esterase positive. Bacteria 2+. ASSESSMENT: 1. ACUTE RIGHT-SIDED PYELONEPHRITIS 2. HISTORY OF HYPERTENSION 3. DYSLIPIDEMIA 4. HYPOTHYROIDISM 5. OBESITY PLAN: 1. Admit the patient to the regular floor. 2. CBC, CMP today and daily. 3. Cardiac enzymes and troponin. 4. IV fluids. 5. Continue home medication, Rocephin 1 gm daily. 6. Toradol 30 mg IV q.6hr. 7. Will follow with the patient in daily rounds. TIME SPENT: More than 70 minutes today. BLU
--- NOTE | 2017-02-25 15:22 | PN ---
DATE OF SERVICE: 02/18/17 SUBJECTIVE: The patient was hospitalized with right sided pyelonephritis. Blood cultures grew gram positive cocci, all four viles. A dose of Vancomycin was given yesterday. Temperature went up to 99.8 and urine did not grown any organism at this time. No chills and still has right sided flank pain. REVIEW OF SYSTEMS: CONSTITUTIONAL: No fever, no chills. HEENT: Normal. ENDOCRINE: No weight gain, no weight loss. CVS: No angina symptoms. No CHF symptoms. No palpitations. No atypical chest pain for CAD. No shortness of breath. No PND, no orthopnea. RESPIRATORY: No cough, no hemoptysis. GI: No nausea, no vomiting. No abdominal pain. : No hematuria. No polyuria. MUSCULOSKELETAL:. No joint swelling. PSYCHIATRIC: Not anxious. No depression. No suicidal thoughts. No homicidal thoughts. SKIN: Intact. No rash. PHYSICAL EXAMINATION: V/S: Blood pressure 121/78, respiratory rate 18, heart rate 84 and temperature 98.9. HEENT: Normocephalic, atraumatic. Mucosa dry. Pallor positive. No icterus. NECK: Supple. No JVD, no carotid bruit. No lymphadenopathy. LUNGS: Decreased and clear to auscultation. No rales or rhonchi. HEART: S1, S2 normal. No S3. No murmur, gallop or regurgitation. ABDOMEN: Soft, Right sided tenderness. Bowel sounds active. No rigidity. No rebound or guarding. No CVA tenderness. EXTREMITIES: No clubbing, cyanosis or pedal edema. MUSCULOSKELETAL: No joint swelling. NEUROLOGIC: Awake, alert, oriented times three. No focal deficit. LYMPHATIC: No lymph nodes palpable. SKIN: Intact. LABS: WBC 9.56, hgb 11.8, hct 35.5, plt count 192, sodium 141, potassium 3.6, chloride 110, bicarb 22, BUN 8, creatinine 0.73. ASSESSMENT: 1. Acute right sided pyelonephritis 2. Septicemia with gram positive cocci in the blood 3. History of labile hypertension 4. Dyslipidemia 5. Osteoarthritis 6. DJD spine PLAN: 1. Continue the Rocephin 1 gram daily 2. IV fluids 3. Tylenol PRN Will follow the patient in daily rounds. TIME SPENT: More than 30 minutes MTDD
--- NOTE | 2017-04-19 08:55 | DS ---
DATE OF SERVICE: 02/19/17 FINAL DIAGNOSIS: 1. RIGHT ACUTE PYELONEPHRITIS/UTI WITH GRAM NEGATIVE RODS 2. HYPERTENSION, LABILE 3. DYSLIPIDEMIA 4. OBESITY 5. OSTEOARTHRITIS 6. DJD SPINE DISCHARGE INSTRUCTIONS: 1. Discharge the patient home 2. Followup at the [facility] on 03/01/17 3. Outpatient labs 4. Resume home medications MEDICATIONS AT DISCHARGE: 1. Cipro 250 mg twice a day for 7 days (New medication) 2. Albuterol 3. Amitriptyline 4. Aspirin 5. Clonidine 6. Diazepam 7. Xalatan eyedrops 8. Synthroid 9. Metoprolol Tartrate b.i.d. 10. Nitrostat p.r.n. 11. Timolol eyedrops DIET INSTRUCTIONS: Cardiac and healthy ACTIVITY: Get plenty of rest at home. Gradually increase activity as tolerated. SMOKING: N/A DISEASE SPECIFIC EDUCATION: Educated about the urinary tract infection, dehydration with increasing hydration discussed with the patient on multiple occasions and the patient verbalized understanding. HOSPITAL COURSE: This is a 47-year-old female who presented at the emergency room with abdominal pain, back pain, and sharp abdominal pain. The patient was seen in the emergency room by Dr. Eisenberg. Blood pressure was 102.2. White count 10.31. Urine was positive for nitrites and leukocyte esterase. CT of abdomen and pelvis showed no hydronephrosis or nephrolithiasis with left-sided CVA tenderness, clinical pyelonephritis. The patient is admitted to the hospital for IV antibiotics and IV fluids. Tylenol was given for the fever and blood cultures were obtained. Antibiotic Rocephin started on the patient with IV fluids. Toradol was given for the pain. Blood culture grew E. coli. Urine also grew E. coli which was sensitive for Ciprofloxacin. The patient was temperature free after the second and third day. White count became normal, did not have any problems. As the patient was getting better and had no problems, the patient is discharged home and explained to her clearly to have labs for followup and results. The patient verbalized understanding. TIME SPENT: More than 55 minutes MTDD
== END 2017-02-19 12:25 | disposition home or self-care (01) | DRG 689 ==
LOC: ED 05:17 → MEDSURG B 08:15
PROVIDERS: ADMIT Emergency Medicine; ATTEND Emergency Medicine
DX: N10 Acute pyelonephritis (principal); A41.9 Sepsis, unspecified organism; B96.20 Unspecified Escherichia coli [E. coli] as the cause of diseases classified elsewhere; I10 Essential (primary) hypertension; E78.5 Hyperlipidemia, unspecified; E66.9 Obesity, unspecified; M19.90 Unspecified osteoarthritis, unspecified site; M47.9 Spondylosis, unspecified; Z79.899 Other long term (current) drug therapy
CPT/HCPCS: 36415; 80053; 81001; 82150; 82550; 82553; 83605; 83690; 84145; 84484; 85025; 85651; 87040; 87070; 87086; 87186; 87651; 87804; 87880; 93005; 93010; 96361; 96365; 96366; 99223; 99233; 99239; 99284

== ENCOUNTER 2017-02-28 12:06 | Outpatient (CLI) ==
[2013-02-27 06:14] VITALS: TEMP 98.2
[2017-02-28 13:08] LABS: BILIRUBIN,URINE Negative (NEGATIVE); KETONES,URINE Negative (NEGATIVE); LEUKOCYTE ESTERASE ,URINE Negative (NEGATIVE); NITRITE,URINE Negative (NEGATIVE); PH,URINE 5.5 (5-9); PROTEIN,URINE Negative (NEGATIVE); URINE, BLOOD Negative (NEGATIVE)
[2017-02-28 13:18] LABS: ADD URINE MICROSCOPIC NO
== END 2017-02-28 12:07 | disposition home or self-care (01) ==
LOC: LAB 12:06
PROVIDERS: ATTEND Emergency Medicine
DX: B96.20 Unspecified Escherichia coli [E. coli] as the cause of diseases classified elsewhere (principal); A41.51 Sepsis due to Escherichia coli [E. coli]
CPT/HCPCS: 36415; 81001; 87040

== ENCOUNTER 2017-08-26 11:34 | Inpatient (IN) ==
[2017-08-26] MEDS ORDERED: AMITRIPTYLINE HCL 50 MG PO SCH ×22 (13:45)
[2017-08-26] MEDS: SODIUM CHLORIDE 1,000 ML IV SCH ×2 (13:50→20:50)
[2017-08-26 13:57] LABS: BASOPHILS % (AUTO) 0.3 % (0.0-3.0); EOSINOPHILS # (AUTO) 0.4 K/ul (0.0-0.7); EOSINOPHILS % (AUTO) 5.4 % (0.0-7.0); HEMATOCRIT 42.9 % (37.0-47.0); HEMOGLOBIN 14.5 g/dl (12.0-16.0); IMMATURE GRANULOCYTE % (AUTO) 0.6 % (0.0-5.0); LYMPHOCYTES # (AUTO) 2.5 K/uL (0.60-3.4); LYMPHOCYTES % (AUTO) 35.9 (10.0-50.0); MEAN CORPUSCULAR HEMOGLOBIN 28.8 pg (27.0-31.0); MEAN CORPUSCULAR HGB CONC 33.8 (31.8-35.4); MEAN CORPUSCULAR VOLUME 85.1 fl (81.0-99.0); MONOCYTES # (AUTO) 0.4 K/uL (0.4-2.0); MONOCYTES % (AUTO) 5.4 (0-10); NEUTROPHILS # (AUTO) 3.6 K/ul (2.0-6.9); NEUTROPHILS % (AUTO) 52.4; PLATELET COUNT 220 10^3/uL (140-440); RED BLOOD COUNT 5.04 10^6/ul (4.20-5.40); WHITE BLOOD COUNT 6.91 K/ul (4.6-10.2)
[2017-08-26] MEDS: ZOFRAN 4 MG/2 ML IVP PRN ×2 (14:14→21:04)
[2017-08-26] MEDS: MORPHINE 2 MG/ML SYRINGE IVP PRN ×2 (14:15→21:03)
[2017-08-26 14:30] VITALS: BMI 37.5
[2017-08-26 14:35] LABS: ALBUMIN 3.9 g/dL (3.4-5.0); ANION GAP 16.5; BILIRUBIN,TOTAL 0.56 mg/dL (0.00-1.20); BUN/CREATININE RATIO 11.76; CALCIUM 9.6 mg/dL (8.2-10.2); CREATININE 0.68 mg/dL (0.60-1.30); POTASSIUM 3.5 mmol/L (3.5-5.10); TOTAL PROTEIN 7.8 g/dL (6.4-8.2); TROPONIN I 0.014 ng/ml (0.0000-0.4000)
[2017-08-26 14:43] LABS: CREATINE KINASE MB 1.3 ng/ml (0.0-3.6)
[2017-08-26] MEDS: CARAFATE PO SCH ×3 (14:52→20:50)
[2017-08-26] MEDS: ELAVIL PO SCH ×3 (14:52→20:51)
[2017-08-26] MEDS: LOVENOX SUBCUT SCH (14:53)
[2017-08-26] MEDS ORDERED: NON-FORMULARY MEDICATION (Clonidine Hcl [Clonidine Hcl] 0.3 MG) PO SCH (15:00)
[2017-08-26] MEDS ORDERED: NITROSTAT SL SCH (15:00)
[2017-08-26] MEDS ORDERED: NITROSTAT SL PRN (15:13)
--- NOTE | 2017-08-26 15:37 | CT ---
EXAM: CT abdomen pelvis without contrast HISTORY: Abdominal pain and vomiting for 2 days. Patient history of tubal ligation COMPARISON: CT abdomen pelvis 02/17/2017 and numerous priors TECHNIQUE: Serial axial images of the abdomen pelvis were performed from the lung bases through the inferior pelvis without contrast. These were viewed in multiple planes. FINDINGS: There is a small ground-glass pulmonary nodule measuring 0.3 cm in diameter on image two. This is unchanged. Evaluation is limited due to lack of contrast. Liver is unremarkable. The gallbladder is distended. There is normal appearance of the adrenal glands. The kidneys are unremarkable. The spleen is nor mal. The pancreas is unremarkable. The stomach is unremarkable. There are multiple scattered lymph nodes in the mesentery which are nonpathologically enlarged in size. Small bowel in the abdomen pelvis is unremarkable. The colon is unremarkable. The appendix is pascual l. Urinary bladder is distended. The uterus is unremarkable. The osseous structures are unremarkab le. IMPRESSION: 1. No acute intra-abdominal or pelvic process to account for symptoms. 2. Small ground-glass pulmonary nodule in the right lower lobe is unchanged from prior examination. 3. Few scattered nonspecific lymph nodes in the mesentery may be reactive.
[2017-08-26] MEDS: FLEXERIL PO SCH ×2 (16:19→20:51)
[2017-08-26] MEDS: CATAPRES PO SCH ×2 (16:19→20:50)
[2017-08-26 20:35] LABS: CREATINE KINASE 100 U/L
[2017-08-26] MEDS: XALATAN OP SCH (20:50)
[2017-08-26] MEDS: PROAIR HFA IH SCH (20:50)
[2017-08-26] MEDS: LOPRESSOR PO SCH (20:51)
[2017-08-26] MEDS: TIMOLOL OP SCH (20:51)
[2017-08-26] MEDS: DORZOLAMIDE OP SCH (20:51)
[2017-08-26] MEDS: CARDIZEM PO SCH (20:51)
[2017-08-26] MEDS: BENADRYL PO SCH (20:51)
[2017-08-26] MEDS ORDERED: NON-FORMULARY MEDICATION (Metoprolol Tartrate [Metoprolol Tartrate] 100 MG) PO SCH (21:00)
[2017-08-27 04:30] LABS: BASOPHILS % (AUTO) 0.3 % (0.0-3.0); EOSINOPHILS # (AUTO) 0.9 K/ul (0.0-0.7); EOSINOPHILS % (AUTO) 9.4 % (0.0-7.0); HEMATOCRIT 38.3 % (37.0-47.0); HEMOGLOBIN 12.9 g/dl (12.0-16.0); IMMATURE GRANULOCYTE % (AUTO) 0.4 % (0.0-5.0); LYMPHOCYTES # (AUTO) 3.9 K/uL (0.60-3.4); MEAN CORPUSCULAR HEMOGLOBIN 29.3 pg (27.0-31.0); MEAN CORPUSCULAR HGB CONC 33.7 (31.8-35.4); MONOCYTES # (AUTO) 0.7 K/uL (0.4-2.0); MONOCYTES % (AUTO) 7.4 (0-10); NEUTROPHILS # (AUTO) 3.6 K/ul (2.0-6.9); NEUTROPHILS % (AUTO) 39.5; PLATELET COUNT 215 10^3/uL (140-440); WHITE BLOOD COUNT 9.02 K/ul (4.6-10.2)
[2017-08-27 04:53] LABS: ALBUMIN 3.3 g/dL (3.4-5.0); ALBUMIN/GLOBULIN RATIO 1.03; ANION GAP 12.5; BILIRUBIN,TOTAL 0.57 mg/dL (0.00-1.20); BUN/CREATININE RATIO 11.59; CALCIUM 8.8 mg/dL (8.2-10.2); CREATININE 0.69 mg/dL (0.60-1.30); POTASSIUM 3.5 mmol/L (3.5-5.10); TOTAL PROTEIN 6.5 g/dL (6.4-8.2)
[2017-08-27 05:00] LABS: CREATINE KINASE 87 U/L
[2017-08-27] MEDS: SODIUM CHLORIDE 1,000 ML IV SCH ×3 (05:13→21:09)
[2017-08-27] MEDS: SYNTHROID PO SCH ×2 (05:58→05:59)
[2017-08-27] MEDS: CARAFATE PO SCH ×4 (05:59→20:17)
[2017-08-27] MEDS: LOVENOX SUBCUT SCH (08:39)
[2017-08-27] MEDS: PROAIR HFA IH SCH ×2 (08:39→20:18)
[2017-08-27] MEDS ORDERED: SOLU-MEDROL 40 MG IVP SCH (08:39)
[2017-08-27] MEDS: ASPIRIN EC PO SCH (08:40)
[2017-08-27] MEDS: LOPRESSOR PO SCH ×2 (08:40→20:17)
[2017-08-27] MEDS: CARDIZEM PO SCH ×2 (08:40→20:18)
[2017-08-27] MEDS: FLEXERIL PO SCH ×3 (08:40→20:17)
[2017-08-27] MEDS: CATAPRES PO SCH ×3 (08:40→20:17)
[2017-08-27] MEDS: TIMOLOL OP SCH ×2 (08:41→20:18)
[2017-08-27] MEDS: DORZOLAMIDE OP SCH ×2 (08:41→20:18)
[2017-08-27] MEDS ORDERED: NON-FORMULARY MEDICATION (Levothyroxine Sodium [Synthroid] 125 MCG) PO SCH ×22 (09:00)
[2017-08-27] MEDS: DUONEB NEB SCH ×3 (11:08→22:38)
--- NOTE | 2017-08-27 15:41 | DI ---
EXAM: CHEST FRONTAL AND LATERAL VIEWS HISTORY: Cough and wheezing. COMPARISON: 08/13/2015 FINDINGS: Heart size and mediastinal contour remain within normal limits. There is at least mild a ortic atherosclerosis. No acute infiltrates. Normal vascularity with no pleural fluid or pneumothora x. The bony thorax has no acute finding. IMPRESSION: No acute process.
[2017-08-27] MEDS: ELAVIL PO SCH (20:17)
[2017-08-27] MEDS: BENADRYL PO SCH (20:18)
[2017-08-27] MEDS: XALATAN OP SCH (20:19)
[2017-08-28] MEDS: DUONEB NEB SCH ×4 (05:09→22:50)
[2017-08-28] MEDS: SODIUM CHLORIDE 1,000 ML IV SCH ×3 (05:21→20:21)
[2017-08-28 05:22] LABS: BASOPHILS % (AUTO) 0.5 % (0.0-3.0); HEMATOCRIT 36.6 % (37.0-47.0); HEMOGLOBIN 12.4 g/dl (12.0-16.0); IMMATURE GRANULOCYTE % (AUTO) 0.1 % (0.0-5.0); LYMPHOCYTES # (AUTO) 3.4 K/uL (0.60-3.4); LYMPHOCYTES % (AUTO) 45.2 (10.0-50.0); MEAN CORPUSCULAR HEMOGLOBIN 29.2 pg (27.0-31.0); MEAN CORPUSCULAR HGB CONC 33.9 (31.8-35.4); MEAN CORPUSCULAR VOLUME 86.1 fl (81.0-99.0); MONOCYTES # (AUTO) 0.5 K/uL (0.4-2.0); MONOCYTES % (AUTO) 7.3 (0-10); NEUTROPHILS # (AUTO) 2.5 K/ul (2.0-6.9); NEUTROPHILS % (AUTO) 33.9; PLATELET COUNT 195 10^3/uL (140-440); RED BLOOD COUNT 4.25 10^6/ul (4.20-5.40); WHITE BLOOD COUNT 7.44 K/ul (4.6-10.2)
[2017-08-28] MEDS: CARAFATE PO SCH ×4 (05:30→20:23)
[2017-08-28] MEDS: SYNTHROID PO SCH ×2 (05:31)
[2017-08-28 05:58] LABS: ALBUMIN 3.1 g/dL (3.4-5.0); ALBUMIN/GLOBULIN RATIO 1.03; ANION GAP 13.4; BILIRUBIN,TOTAL 0.42 mg/dL (0.00-1.20); BUN/CREATININE RATIO 6.06; CALCIUM 8.7 mg/dL (8.2-10.2); CREATININE 0.66 mg/dL (0.60-1.30); POTASSIUM 3.4 mmol/L (3.5-5.10); TOTAL PROTEIN 6.1 g/dL (6.4-8.2)
[2017-08-28] MEDS ORDERED: K-DUR PO STA (08:48)
[2017-08-28] MEDS: LOVENOX SUBCUT SCH (09:16)
[2017-08-28] MEDS: BENADRYL PO SCH ×2 (09:16→17:36)
[2017-08-28] MEDS: PREDNISONE PO SCH ×2 (09:16→17:36)
[2017-08-28] MEDS: FLEXERIL PO SCH ×3 (09:17→20:22)
[2017-08-28] MEDS: CATAPRES PO SCH ×3 (09:17→20:22)
[2017-08-28] MEDS: ASPIRIN EC PO SCH (09:17)
[2017-08-28] MEDS: CARDIZEM PO SCH ×2 (09:17→20:22)
[2017-08-28] MEDS: LOPRESSOR PO SCH ×2 (09:17→20:22)
[2017-08-28] MEDS: ZANTAC PO SCH ×2 (09:18→17:01)
[2017-08-28] MEDS: TIMOLOL OP SCH ×2 (09:26→20:21)
[2017-08-28] MEDS: DORZOLAMIDE OP SCH ×2 (09:26→20:21)
[2017-08-28] MEDS: MORPHINE 2 MG/ML SYRINGE IVP PRN (15:39)
[2017-08-28] MEDS: ZOFRAN 4 MG/2 ML IVP PRN (15:39)
[2017-08-28] MEDS: PERFOROMIST NEB SCH (18:00)
[2017-08-28] MEDS: ELAVIL PO SCH (20:22)
[2017-08-28] MEDS: XALATAN OP SCH (20:24)
[2017-08-29] MEDS: PERFOROMIST NEB SCH ×2 (04:50→17:41)
[2017-08-29] MEDS: DUONEB NEB SCH ×4 (05:12→23:08)
[2017-08-29] MEDS: CARAFATE PO SCH ×4 (05:40→20:32)
[2017-08-29] MEDS: SYNTHROID PO SCH ×2 (05:41)
[2017-08-29] MEDS: ZANTAC PO SCH ×2 (05:41→16:33)
[2017-08-29] MEDS: MORPHINE 2 MG/ML SYRINGE IVP PRN ×2 (07:24→20:38)
[2017-08-29] MEDS: ZOFRAN 4 MG/2 ML IVP PRN ×2 (07:25→20:37)
[2017-08-29] MEDS: ASPIRIN EC PO SCH (08:34)
[2017-08-29] MEDS: CATAPRES PO SCH ×3 (08:34→20:33)
[2017-08-29] MEDS: CARDIZEM PO SCH ×2 (08:34→20:34)
[2017-08-29] MEDS: FLEXERIL PO SCH ×3 (08:34→20:33)
[2017-08-29] MEDS: PREDNISONE PO SCH ×2 (08:34→16:33)
[2017-08-29] MEDS: BENADRYL PO SCH ×2 (08:34→16:33)
[2017-08-29] MEDS: LOPRESSOR PO SCH ×2 (08:34→20:34)
[2017-08-29] MEDS: LOVENOX SUBCUT SCH (08:35)
[2017-08-29] MEDS: TIMOLOL OP SCH ×2 (08:36→20:30)
[2017-08-29] MEDS: DORZOLAMIDE OP SCH ×2 (08:36→20:30)
[2017-08-29 09:03] LABS: CREATINE KINASE 68 U/L
--- NOTE | 2017-08-29 14:27 | DI ---
EXAM: Two views of the chest. History: Left-sided rib pain. Comparison: Chest radiograph 08/27/2017 Findings: Heart size is normal. No focal consolidation. No appreciable pleural fluid and no pneumo thorax. No acute osseous abnormalities. Impression: No acute cardiopulmonary process
--- NOTE | 2017-08-29 15:44 | PN ---
DATE OF SERVICE: 08/27/17 SUBJECTIVE: The patient was admitted with acute diarrhea, nausea, vomiting and gastroenteritis also having cough, congestion with bronchitis. No vomiting since admission. REVIEW OF SYSTEMS: CONSTITUTIONAL: No fever, no chills. HEENT: Normal. ENDOCRINE: No weight gain, no weight loss. CVS: No angina symptoms. No CHF symptoms. No palpitations. No atypical chest pain for CAD. No shortness of breath. No PND, no orthopnea. RESPIRATORY: Cough, congestion and wheezing. No hemoptysis. GI: No nausea, no vomiting. No abdominal pain. : No hematuria. No polyuria. MUSCULOSKELETAL:. No joint swelling. PSYCHIATRIC: Not anxious. No depression. No suicidal thoughts. No homicidal thoughts. SKIN: Intact. No rash. PHYSICAL EXAMINATION: V/S: Blood pressure 148/82, respiratory rate 20, heart rate 57, temperature 98.4 and pulse ox 96% on room air. HEENT: Normocephalic, atraumatic. Mucosa dry. NECK: Supple. No JVD, no carotid bruit. No lymphadenopathy. LUNGS: Decreased and bilateral expiratory wheezing is present. No rales or rhonchi. HEART: S1, S2 normal. No S3. No murmur, gallop or regurgitation. ABDOMEN: Soft, nontender. Bowel sounds active. No rigidity. No rebound or guarding. No CVA tenderness. EXTREMITIES: No clubbing, cyanosis or pedal edema. MUSCULOSKELETAL: No joint swelling. NEUROLOGIC: Awake, alert, oriented times three. No focal deficit. LYMPHATIC: No lymph nodes palpable. SKIN: Intact. 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 Hypertension, uncontrolled 3. Upper respiratory tract infection, COPD 4. Obesity PLAN: 1. We are going to continue IV fluids 2. Start the breathing treatments 3. IV fluids 4. Zofran 5. Chest x-ray 6. Continue home medication 7. Daily I&O's 8. Regular diet Will follow the patient in daily rounds. TIME SPENT: More than 35 minutes MTDD
[2017-08-29] MEDS: XALATAN OP SCH (20:31)
[2017-08-29] MEDS: ELAVIL PO SCH (20:34)
[2017-08-29] MEDS: SODIUM CHLORIDE 1,000 ML IV SCH (20:43)
[2017-08-30] MEDS: DUONEB NEB SCH ×3 (05:10→16:45)
[2017-08-30] MEDS: PERFOROMIST NEB SCH ×2 (05:25→17:05)
[2017-08-30] MEDS: CARAFATE PO SCH ×4 (05:35→20:53)
[2017-08-30] MEDS: ZANTAC PO SCH ×2 (05:36→17:44)
[2017-08-30] MEDS: SYNTHROID PO SCH ×2 (05:36)
[2017-08-30] MEDS ORDERED: CATAPRES PO STA (06:25)
[2017-08-30] MEDS: LOVENOX SUBCUT SCH (08:44)
[2017-08-30] MEDS: TIMOLOL OP SCH ×2 (08:44→20:54)
[2017-08-30] MEDS: DORZOLAMIDE OP SCH ×2 (08:44→20:54)
[2017-08-30] MEDS: CATAPRES PO SCH ×3 (08:56→20:55)
[2017-08-30] MEDS: ASPIRIN EC PO SCH (11:57)
[2017-08-30] MEDS: FLEXERIL PO SCH ×3 (11:58→20:54)
[2017-08-30] MEDS: LOPRESSOR PO SCH ×2 (11:58→20:54)
[2017-08-30] MEDS: CARDIZEM PO SCH ×2 (11:59→20:54)
[2017-08-30] MEDS: BENADRYL PO SCH ×2 (11:59→17:44)
[2017-08-30] MEDS: PREDNISONE PO SCH ×2 (12:00→17:44)
--- NOTE | 2017-08-30 12:03 | ECHO2D ---
Date of Exam: 08/29/17 Ordering Physician: CATHLEEN JONES Room #: [id number] Reason for Echo: CHEST PAIN, HYPERTENSION M-Mode Normal Adult Results LV Dimensions Normal Adult Results AoV Opening excursions >1.6 >1.6 LVEDD-base- 3.5-5.8 4.5 Ao root dimensions 2.0-3.7 3.4 LVESD-base- 3.1-4.6 L. Atrium dimensions 1.9-3.8 3.6 Post. Wall thickness 0.8-1.1 1.1 IV septum (thickness) 0.7-1.2 1.2 Post. Wall excursion 0.72-1.3 NORMAL Septal motion NORMAL Systolic motion R. Ventricular cavity 1.5-2.0 NORMAL LVEF 60% 68% Paradoxical septal wall motion NORMAL 2-D : 2-D M Mode Echocardiogram was performed using apical four chamber and left parasternal long and short axis views. Mitral, tricuspid and aortic valves appear to be normal. Contractility of the left ventricle seems to be normal, so is the cavity size. Left atrial cavity size and aortic root appear to be normal. There is no pericardial effusion. There is no thrombus noted in the left ventricular or left aortic cavity. No mitral valve prolapse noted. M-MODE: MV: NORMAL AV: NORMAL TV: NORMAL PV: CHAMBER SIZE: NORMAL WALL MOTION: NORMAL PERICARDIUM: NORMAL INTERPRETATION: 1. BORDERLINE LEFT VENTRICULAR HYPERTROPHY 2. NORMAL LEFT VENTRICLE CONTRACTILITY 3. NORMAL VALVES MTDD
--- NOTE | 2017-08-30 12:41 | US ---
EXAM: Renal ultrasound HISTORY: Hypertension COMPARISON: Same day renal Doppler and renal ultrasound 01/19/2014 TECHNIQUE: Sonographic evaluation of the kidneys was performed with limited Doppler evaluation. FINDINGS: The right kidney measures 10.3 x 4.3 x 3.5 cm with renal cortical thickness of 0.9 cm. Th ere is normal echogenicity and color Doppler flow. No stone or hydronephrosis is identified. The left kidney measures 12.3 x 4.8 x 3.8 cm with renal cortical thickness of 1.0 cm. There is pascual l echogenicity and color Doppler flow. No stone or hydronephrosis is identified. Limited evaluation of the urinary bladder is unremarkable. Ureteral jets are not identified. IMPRESSION: No acute sonographic abnormality of the kidneys to account for symptoms.
--- NOTE | 2017-08-30 12:58 | US ---
EXAM: Renal artery duplex HISTORY: Hypertension COMPARISON: Same day renal ultrasound TECHNIQUE: Sonographic and Doppler evaluation of the kidneys and renal arteries were performed. Eval uation is limited due to body habitus. FINDINGS: The aorta is normal in appearance with peak systolic velocity of 60 centimeters per second and diameter of 1.5 cm. The IVC is patent. The right kidney measures 10.3 cm in length. Peak systolic velocities measure 80 cm/sec at the ostium, 60 cm/sec in the mid artery and 80 cm/sec i n the renal hilum. These are normal. The renal artery/aortic ratio measures 1.3 at the ostium, 1.0 in the mid renal artery and 1.3 in the hilum. The arcuate artery demonstrates a peak systolic velocity of 20 cm/sec and resistive index of 0.57 whi ch is normal. The right renal vein is patent. The left kidney measures 12.3 cm in length. The left renal ostium is not visualized. Peak systolic velocities measure 60 cm/sec in the mid renal artery and 60 cm/sec in the renal hilum. These are normal. The renal artery/aortic ratio measures 1.0 in the mid left renal artery and 1.0 in the renal hilum. The arcuate artery measures peak systolic velocity of 20 cm/sec with a resistive index of 0.58 which is within normal limits. The left renal vein is patent. IMPRESSION: 1. Left renal ostium was not visualized due to body habitus. 2. Remaining velocities are all within normal limits with normal resistive indices.
[2017-08-30] MEDS: XALATAN OP SCH (20:54)
[2017-08-30] MEDS: ELAVIL PO SCH (20:54)
[2017-08-31] MEDS: DUONEB NEB SCH ×3 (00:30→11:04)
[2017-08-31] MEDS: PERFOROMIST NEB SCH (05:22)
[2017-08-31] MEDS: SYNTHROID PO SCH ×2 (05:48→05:49)
[2017-08-31] MEDS: CARAFATE PO SCH (05:48)
[2017-08-31] MEDS: ZANTAC PO SCH (05:49)
[2017-08-31] MEDS: LOVENOX SUBCUT SCH (08:08)
[2017-08-31] MEDS: LOPRESSOR PO SCH (08:09)
[2017-08-31] MEDS: CARDIZEM PO SCH (08:09)
[2017-08-31] MEDS: ASPIRIN EC PO SCH (08:09)
[2017-08-31] MEDS: CATAPRES PO SCH ×2 (08:09→15:32)
[2017-08-31] MEDS: BENADRYL PO SCH (08:09)
[2017-08-31] MEDS: TIMOLOL OP SCH (08:10)
[2017-08-31] MEDS: DORZOLAMIDE OP SCH (08:10)
[2017-08-31] MEDS: FLEXERIL PO SCH ×2 (08:10→15:32)
[2017-08-31] MEDS: PREDNISONE PO SCH (08:10)
[2017-08-31 14:05] VITALS: BP 164/95; TEMP 98.1
--- NOTE | 2017-09-02 09:45 | PN ---
DATE OF SERVICE: 08/30/17 SUBJECTIVE: The patient was admitted with gastroenteritis but it has got better now. The patient having labile hypertension. Today morning it was 181/99 and was having some chest pain and the back pain for which the patient was given Clonidine which did make her feel better. REVIEW OF SYSTEMS: CONSTITUTIONAL: No fever, no chills. HEENT: Normal. ENDOCRINE: No weight gain, no weight loss. CVS: No angina symptoms. No CHF symptoms. No palpitations. No atypical chest pain for CAD. No shortness of breath. No PND, no orthopnea. RESPIRATORY: Coughing is better, no hemoptysis. GI: No nausea, no vomiting. No abdominal pain. : No hematuria. No polyuria. MUSCULOSKELETAL:. No joint swelling. PSYCHIATRIC: Not anxious. No depression. No suicidal thoughts. No homicidal thoughts. SKIN: Intact. No rash. PHYSICAL EXAMINATION: V/S: Blood pressure 166/98, respiratory rate 14, heart rate 64 and temperature 97.8 with saturation is 100%. HEENT: Normocephalic, atraumatic. Mucosa dry. NECK: Supple. No JVD, no carotid bruit. No lymphadenopathy. LUNGS: Clear to auscultation. No rales or rhonchi. HEART: S1, S2 normal. No S3. No murmur, gallop or regurgitation. ABDOMEN: Soft, nontender. Bowel sounds active. No rigidity. No rebound or guarding. No CVA tenderness. EXTREMITIES: No clubbing, cyanosis or pedal edema. MUSCULOSKELETAL: No joint swelling. NEUROLOGIC: Awake, alert, oriented times three. No focal deficit. LYMPHATIC: No lymph nodes palpable. SKIN: Intact. LABS: WBC 7.44, hgb 12.4, hct 36.6, plt count 195, sodium 143, potassium 3.4, chloride 110, bicarb 23, BUN 4, creatinnie 0.66 ASSESSMENT: 1. Hypertension, uncontrolled and Labile 2. Gastroenteritis resolved 3. Chest pain, noncardiac 4. Obesity 5. Hypertension needing multiple medication 6. COPD 7. Bronchitis PLAN: 1. Renal ultrasound 2. Stop IV fluids 3. Continue the Clonidine 0.3mg twice a day 4. Rest of the medications to be continued TIME SPENT: More than 35 minutes MTDD
--- NOTE | 2017-09-04 09:35 | DS ---
DATE OF SERVICE: 08/31/17 FINAL DIAGNOSIS: 1. Hypertension, labile 2. Acute gastroenteritis, resolved 3. Dehydration, better 4. GERD 5. Angina 6. Dependant edema 7. COPD 8. Upper respiratory infection 9. Bronchitis 10.Hypothyroidism 11.Nicotine use 12.Obesity 13.Tubal ligation 14.Glaucoma DISCHARGE INSTRUCTIONS: Discharge the patient home. Continue home medication. Life style modification been discussed. MEDICATIONS AT DISCHARGE: Nitro 0.4mg SL PRN Albuterol PRN Amitriptyline 50mg PO daily Aspirin 325mg PO daily Clonidine 0.3mg PO three times a day Flexeril 10mg PO three times a day Diltiazem 60mg two times a day Benadryl PRN Eye Drops Synthroid 125mcg Metoprolol 100mg PO twice a day Lopressor 100mg twice a day NEW PRESCRIPTIONS: None DIET INSTRUCTIONS: Low sodium to help control blood pressure ACTIVITY: Gradually resume activities as tolerated. SMOKING: Former smoker DISEASE SPECIFIC EDUCATION: Bronchitis Dehydration Upper Respiratory tract infection been discussed and verbalized understanding. HOSPITAL COURSE: Ronda Ortiz came to the office with the coughing, congestion and shortness of breath and not able to keep anything down. Started on the IV fluids, Zofran and breathing treatment. Zofran did really help the patient. Some vomiting was better and so she started taking her home medications finally. Blood pressure was labile it was up to 168/100. With the Zofran the patient started feeling better and was able to keep the medications down. Then the patient's bronchitis acted up and coughing and congestion. She can not tolerated the IV steroids so PO started and breathing treatment was given. Eventually the patient was started feeling better and the blood pressure been getting stable, this patient has this labile and uncontrolled blood pressure for long time. The patient being evaluated for renal artery stenosis which was negative and we did the test again which was again negative for the blockages. As the patient is feeling better and the blood pressure being slightly better at that time the patient decided to go home as she was feeling good. She is being discharged home. TIME SPENT: MORE THAN 60 MINUTES MTDD
--- NOTE | 2017-09-04 15:21 | PN ---
DATE OF SERVICE: 08/29/17 SUBJECTIVE: The patient was admitted with the gastroenteritis and now having the problem with the coughing and congestion. Blood pressure been better and tolerating the food. Complains about the midback pain. The patient asked for Nitroglycerin sublinguals says that if she has chest pains, left sided mid back pain. REVIEW OF SYSTEMS: CONSTITUTIONAL: No fever, no chills. HEENT: Normal. ENDOCRINE: No weight gain, no weight loss. CVS: No angina symptoms. No CHF symptoms. No palpitations. No atypical chest pain for CAD. No shortness of breath. No PND, no orthopnea. RESPIRATORY: No cough, no hemoptysis. GI: No nausea, no vomiting. No abdominal pain. : No hematuria. No polyuria. MUSCULOSKELETAL:. No joint swelling. PSYCHIATRIC: Not anxious. No depression. No suicidal thoughts. No homicidal thoughts. SKIN: Intact. No rash. PHYSICAL EXAMINATION: V/S: Blood pressure 154/89, respiratory rate 20, heart rate 63, temperature 98.8 and saturation is 97%. HEENT: Normocephalic, atraumatic. Mucosa dry. NECK: Supple. No JVD, no carotid bruit. No lymphadenopathy. LUNGS: Bilateral entry is decreased and clear to auscultation. No rales or rhonchi. HEART: S1, S2 normal. No S3. No murmur, gallop or regurgitation. ABDOMEN: Soft, nontender. Bowel sounds active. No rigidity. No rebound or guarding. No CVA tenderness. EXTREMITIES: No clubbing, cyanosis or pedal edema. MUSCULOSKELETAL: No joint swelling. NEUROLOGIC: Awake, alert, oriented times three. No focal deficit. LYMPHATIC: No lymph nodes palpable. SKIN: Intact. LABS: Sodium 140, potassium 3.4, chloride 110, bicarb 23, BUN 4, creatinine 0.66, glucose 108, WBC 7.44, hgb 12.4, hct 36.6, plt count 195. ASSESSMENT: 1. COPD exacerbation and bronchitis 2. Hypertension uncontrolled 3. Gastroenteritis which is better 4. History of chest pains PLAN: 1. Chest x-ray 2. Regular diet 3. Continue with the Prednisone 4. DUO NEBS TIME SPENT: More than 35 minutes MTDD
== END 2017-08-31 17:00 | disposition home or self-care (01) | DRG 392 ==
LOC: MEDSURG B 11:34
PROVIDERS: ADMIT Emergency Medicine; ATTEND Emergency Medicine
DX: K52.9 Noninfective gastroenteritis and colitis, unspecified (principal); J44.0 Chronic obstructive pulmonary disease with (acute) lower respiratory infection; J20.9 Acute bronchitis, unspecified; I10 Essential (primary) hypertension; I20.9 Angina pectoris, unspecified; J44.9 Chronic obstructive pulmonary disease, unspecified; E86.0 Dehydration; K21.9 Gastro-esophageal reflux disease without esophagitis; R60.0 Localized edema; E66.9 Obesity, unspecified; E03.9 Hypothyroidism, unspecified; H40.9 Unspecified glaucoma; Z72.0 Tobacco use; Z98.51 Tubal ligation status
CPT/HCPCS: 36415; 76770; 80053; 82150; 82550; 82553; 83690; 84484; 85025; 93005; 93010; 94640

== ENCOUNTER 2017-08-31 23:46 | Outpatient (CLI) ==
[2013-02-27 06:14] VITALS: TEMP 98.2
== END 2017-08-31 23:47 | disposition home or self-care (01) ==
LOC: AMBL 23:46
PROVIDERS: ATTEND Family Medicine
DX: R11.2 Nausea with vomiting, unspecified (principal); R10.84 Generalized abdominal pain; R06.4 Hyperventilation; K59.00 Constipation, unspecified; M54.5 Low back pain; M54.6 Pain in thoracic spine; R07.9 Chest pain, unspecified; I10 Essential (primary) hypertension

== ENCOUNTER 2017-09-27 14:12 | Outpatient (CLI) ==
[2013-02-27 06:14] VITALS: TEMP 98.2
== END 2017-09-27 14:13 | disposition home or self-care (01) ==
LOC: LAB 14:12
PROVIDERS: ATTEND Emergency Medicine
DX: E03.9 Hypothyroidism, unspecified (principal)
CPT/HCPCS: 36415; 84443

== ENCOUNTER 2017-10-01 07:43 | Day surgery (SDC) ==
[2017-10-01] MEDS ORDERED: DIPRIVAN 20 ML VIAL IVP ONE (10:00)
[2017-10-01] MEDS ORDERED: LIDOCAINE HCL 2% LUER-JET ONE (10:00)
[2017-10-01 11:12] VITALS: BP 159/95; TEMP 97.3
--- NOTE | 2017-10-02 11:34 | OP ---
INDICATIONS FOR PROCEDURE: 47-year-old female presents for a screening colon exam. She was recently in the hospital with acute infectious colitis with Norovirus. CT scan showed inflammatory changes in the watershed area. She is also scheduled for followup evaluation of that. She is back to her asymptomatic state she tells me. MEDICATIONS: SEE ANESTHESIA NOTES. PROCEDURE: COLONOSCOPY. SNARE POLYPECTOMY. REPORT: The risks, benefits, alternatives and limitations were discussed in detail with the patient. Informed consent was obtained. After adequate sedation was achieved, a digital rectal exam revealed good tone, no masses. The colonoscope was introduced into the rectum and advanced under direct visual guidance to the cecum. The cecum was identified by the appendiceal orifice and IC valve. I then slowly withdrew the scope in circumferential manner examining the mucosa quite carefully. I looked on the proximal and distal side of folds and flexures as best as possible. I was able to retroflex the scope in the right colon and left colon where I could to increase visualization. In the watershed area there is some scarring of the mucosa. This was subtle.This was in the area of the inflammation on the CT scan but there is no active inflammation or other mucosa abnormalities present. In the distal sigmoid area there is a small 5 to 6 mm sessile polyp. I removed this by snare technique. I used biopsy forceps to grab the polyp tissue and retrieve it. No other abnormalities were noted including on retroflex view of the anal canal. The prep was good. The withdrawal time was 10 minutes and 19 seconds. The patient tolerated the procedure well with stable vital signs and pulse oximetry throughout. IMPRESSION: 1. RESOLVED COLITIS 2. SMALL DIMINUTIVE POLYP REMOVED RECOMMENDATIONS: 1. High fiber diet 2. Office visit as needed 3. Await pathology results; if the polyp shows adenomatous tissue, I recommend repeat colonoscopy examination again in 5 years otherwise screening examination again in 10 years, sooner if there are any signs or symptoms to indicate otherwise. CC: DR. KAREN HURT
== END 2017-10-01 10:58 | disposition home or self-care (01) ==
LOC: SURG 07:43
PROVIDERS: ATTEND Internal Medicine Gastroenterology
DX: D12.5 Benign neoplasm of sigmoid colon (principal); Z87.19 Personal history of other diseases of the digestive system; K63.5 Polyp of colon

== ENCOUNTER 2018-04-24 11:58 | Outpatient (CLI) ==
[2013-02-27 06:14] VITALS: TEMP 98.2
== END 2018-04-24 11:59 | disposition home or self-care (01) ==
LOC: RHC-LAB 11:58
PROVIDERS: ATTEND Emergency Medicine
DX: J06.9 Acute upper respiratory infection, unspecified (principal)
CPT/HCPCS: 87651

== ENCOUNTER 2018-05-01 10:39 | Inpatient (IN) ==
--- NOTE | 2018-05-01 10:54 | ED.PDOC ---
General ED Provider: Dr. COLETTE OLIVA Chief Complaint: Chest Pain Stated Complaint: Chest pain and headache: Onset this morning. States currently treated for sinusitis. Has taken her BP meds this morning(CLonidine plus Metoprolol). Denies Nausea or vomiting. Time Seen by Physician: 10:35 Mode of Arrival: Walk-In Information Source: Patient Exam Limitations: No limitations Primary Care Provider[facility] Nursing and Triage Documentation Reviewed and Agree: Yes Does patient meet sepsis criteria?: No System Inflammatory Response Syndrome: Not Applicable Sepsis Protocol: For patient's 13 years and over: Temp is 96.8 and below OR 101 and greater Pulse >90 BPM Resp >20/minute Acutely Altered Mental Status Are patient's symptoms suggestive of a new infection, such as: -Pneumonia -Skin, Soft Tissue -Endocarditis -UTI -Bone, Joint Infection -Implantable Device -Acute Abdominal Infection -Wound Infection -Meningitis -Blood Stream Catheter Infection -Unknown Cardiovascular Complaint Exam - Chest Pain Complaint/Exam Onset: Sudden Duration: all morning Symptoms Are: Still present Timing: Constant Initial Severity: Moderate Current Severity: Mild Location: Reports: Diffuse, Left anterior Pain Radiates: Reports: Jaw Character: Reports: Aching, Tightness Aggravating: Reports: Deep breaths Alleviating: Reports: Rest Associated Signs and Symptoms: Denies: Diaphoresis, Nausea, Vomiting, Fever, Palpitations, Cough, Hemoptysis, Back pain, Abdominal pain, Dizziness, Short of air, Calf pain, Calf swelling History of Healthcare-Acquired Pneumonia: Reports: No AMI/ACS Risk Factors: Reports: Obesity, Hypertension Pulmonary Embolism Risk Factors: Reports: None Prior Care for this Complaint: Yes Recent Stress Test: Yes Recent Echo/LV Function: Yes JVD Present: No Subcutaneous Emphysema Present: No Diminshed Breath Sounds: No Reproducible Chest Wall Pain: No Bilateral Pulses Present: No Unequal Pulses Noted: No Differential Diagnoses: Chest Wall Pain, Other (angina) Review of Systems - Review Of Systems Constitutional: Reports: No symptoms Eyes: Reports: No symptoms Ears, Nose, Mouth, Throat: Reports: No symptoms Respiratory: Reports: No symptoms Cardiac: Reports: No symptoms, Chest pain GI: Reports: No symptoms : Reports: No symptoms Musculoskeletal: Reports: No symptoms Skin: Reports: No symptoms Neurological: Reports: No symptoms Endocrine: Reports: No symptoms Hematologic/Lymphatic: Reports: No symptoms All Other Systems: Reviewed and Negative Past Medical History - Past Medical History Previously Healthy: Yes Endocrine: Reports: Hypothyroid, Dyslipidemia Cardiovascular: Reports: CAD, Hypertension Respiratory: Reports: None Hematological: Reports: None Gastrointestinal: Reports: None Genitourinary: Reports: None Neuro/Psych: Reports: None Musculoskeletal: Reports: Unknown Cancer: Reports: None Last Menstrual Period: N/A Other Pertinent Past Medical History: Arthritis, Glaucoma - Surgical History General Surgical History: Reports: Tubal ligation (25 years ago ), Other (Left eye surgery x 2 ) - Family History Family History: Reports: None - Social History Smoking Status: Former smoker Hx Substance Use: No Alcohol Screening: None - Immunizations Tetanus Shot up to Date: No Physical Exam - Physical Exam Appearance: Obese Ill-appearing: Mild Pain Distress: Moderate Eyes: EDLORES, EOMI, Conjunctiva clear ENT: Ears normal (facial tenderness to palpaton bialat maxillary and frontal sinus region), Nose normal, Oropharynx normal Respiratory: Airway patent, Breath sounds clear, Breath sounds equal, Respirations nonlabored Cardiovascular: RRR, Pulses normal, No rub, No murmur GI/: Soft, Nontender Musculoskeletal: Normal strength, ROM intact, No edema, No calf tenderness Skin: Warm, Dry, Normal color Neurological: Sensation intact, Motor intact Psychiatric: Affect appropriate Interpretation - Radiology Interpretation Radiology Interpretation By: Radiologist Radiology Results: Positive Xray Comments: acute sinusitis Physician Notification - Case Discussed Physician Notified: Dr Drake-agrees to admit Time of Notification: 12:15 Critical Care Note - Critical Care Note Total Time (mins): 60 Course - Course Hematology/Chemistry: 05/01/18 11:21 05/01/18 11:21 Orders, Labs, Meds: Lab Review 05/01/18 05/01/18 05/01/18 11:21 11:21 11:21 WBC 15.16 H RBC 4.68 Hgb 13.3 Hct 38.9 MCV 83.1 MCH 28.4 MCHC 34.2 RDW Coeff of Lalo 14.2 Plt Count 335 Immature Gran % (Auto) 0.7 Neut % (Auto) 73.0 Lymph % (Auto) 17.7 [place] % (Auto) 4.7 Eos % (Auto) 3.6 Baso % (Auto) 0.3 Immature Gran # (Auto) 0.1 Neut # (Auto) 11.1 H Lymph # (Auto) 2.7 [place] # (Auto) 0.7 Eos # (Auto) 0.6 Baso # (Auto) 0.0 Sodium 139 Potassium 4.3 Chloride 104 Carbon Dioxide 22 Anion Gap 17.3 BUN 8 Creatinine 0.67 Estimated GFR (MDRD) 93.00 BUN/Creatinine Ratio 11.94 Glucose 92 Calcium 10.1 Total Bilirubin 0.6 AST 26 ALT 21 Alkaline Phosphatase 89 Troponin I < 0.0100 Total Protein 7.8 Albumin 3.8 Globulin 4.0 Albumin/Globulin Ratio 0.95 Orders Category Date Time Status ADMIT PATIENT INPATIENT .TO MEDSURG (MONITORED BED) ADMISSION 05/01/18 12: 23 Active EKG-(ED ONLY) Stat CARDIO 05/01/18 11:04 Completed TELEMETRY MONITORING TELE CARE 05/01/18 12:23 Active CBC W/ AUTO DIFF Stat LAB 05/01/18 11:21 Completed CMP [COMPREHENSIVE METABOLIC PANEL] Stat LAB 05/01/18 11:21 Completed TROPONIN I Stat LAB 05/01/18 11:21 Completed UA [URINALYSIS C & S IF INDICATED] Stat LAB 05/01/18 11:02 Uncollected Aspirin [Aspirin Chewable] MEDS 05/01/18 11:05 Discontinued 324 mg PO ONCE STA Ceftriaxone Sodium [Rocephin] 1 gm MEDS 05/01/18 12:21 Active 0.9 % Sodium Chloride [Sodium Chloride] 50 ml IV ONCE Hydralazine HCl [Apresoline] MEDS 05/01/18 11:16 Discontinued 25 mg PO ONCE STA CHEST, 2 VIEWS PA & LAT Stat RADS 05/01/18 11:[address] HEAD W/O CONTRAST Stat RADS 05/01/18 10:[address] SINUSES W/O CONTRAST Stat RADS 05/01/18 11:00 Completed Medications Generic Name Dose Route Start Last Admin Trade Name Freq PRN Reason Stop Dose Admin Ceftriaxone Sodium 1 gm/ 50 mls @ 75 mls/hr 05/01/18 12:21 Sodium Chloride IV 05/01/18 13:00 ONCE STA Discontinued Medications Generic Name Dose Route Start Last Admin Trade Name Freq PRN Reason Stop Dose Admin Aspirin 324 mg 05/01/18 11:05 05/01/18 11:08 Aspirin Chewable PO 05/01/18 11:06 324 mg ONCE STA Administration Hydralazine HCl 25 mg 05/01/18 11:16 05/01/18 11:32 Apresoline PO 05/01/18 11:17 25 mg ONCE STA Administration Vital Signs: Temp Pulse Resp BP Pulse Ox 05/01/18 10:40 97.9 F 72 18 182/119 H 100 DNONA Risk Score DONNA Risk Score: Risk Score Odds of by 30D 0 0.1 (0.1-0.2) 1 0.3 (0.2-0.3) 2 0.4 (0.3-0.5) 3 0.7 (0.6-0.9) 4 1.2 (1.0-1.5) 5 2.2 (1.9-2.6) 6 3.0 (2.5-3.6) 7 4.8 (3.8-6.1) Departure - Departure Time of Disposition: 12:30 Disposition: ADMITTED INPATIENT Discharge Problem: Acute sinusitis treated with antibiotics in the past 60 days, Hypertension, uncontrolled, Chest pain, Chronic obstructive lung disease Condition: Fair Pt referred to PMD for follow-up: Yes (spoke with dr drake who agress to admit) IPMP verified?: No Allergies/Adverse Reactions: Allergies acetaminophen [From Lortab] Adverse Reaction (Intermediate, Verified 05/01/18 10 :46) Itching hydrocodone bitartrate [From Lortab] Adverse Reaction (Intermediate, Verified 10:46) Itching codeine [Codeine] Adverse Reaction (Verified 05/01/18 10:46) egg Adverse Reaction (Verified 05/01/18 10:46) lanolin Adverse Reaction (Verified 05/01/18 10:46) prednisone Adverse Reaction (Verified 05/01/18 10:46) onions Allergy (Severe, Uncoded 05/01/18 10:46) tongue itchy and numbness bottom lip peanuts Allergy (Mild, Uncoded 05/01/18 10:46) nausea tomatoes Allergy (Mild, Uncoded 05/01/18 10:46) [place] stomach Steroids Adverse Reaction (Intermediate, Uncoded 05/01/18 10:46) Palpitations Tape Adverse Reaction (Mild, Uncoded 05/01/18 10:46) Itching Pt reports that paper tape does not cause itching. Home Medications: Ambulatory Orders Aspirin [Aspirin EC] 325 mg PO DAILY 01/30/14 Latanoprost [Xalatan] 1 drop OP BEDTIME 02/17/17 Diphenhydramine HCl [Benadryl] 25 mg PO BEDTIME 08/26/17 Dorzolamide/Timolol/Pf [Cosopt Pf Eye Drops] 1 each OP BID 08/26/17 Nitroglycerin [Nitrostat] 0.4 mg SL Q5MIN X 3 DOSES PRN 08/26/17 Diltiazem HCl [Cardizem] 60 mg PO BID tablet 08/31/17 Metoprolol Tartrate [Lopressor] 100 mg PO BID tablet 08/31/17 Disposition Discussed With: Patient
[2018-05-01] MEDS ORDERED: ASPIRIN CHEWABLE PO STA ×2 (11:03→11:05)
[2018-05-01] MEDS ORDERED: APRESOLINE PO STA (11:16)
--- NOTE | 2018-05-01 11:44 | DI ---
EXAM: Chest two view, frontal and lateral views. HISTORY: Chest pain. COMPARISON: 08/29/2017. FINDINGS: The heart size is normal. There is no pulmonary vascular congestion. The lungs are clear . No pleural effusion or pneumothorax is seen. No acute osseous abnormality identified. Since the prior study, there has been no significant interval change. IMPRESSION: No acute cardiopulmonary process.
--- NOTE | 2018-05-01 11:50 | CT ---
EXAM: CT PARANASAL SINUSES HISTORY: Sinus pain TECHNIQUE: CT paranasal sinuses without contrast. Detailed axial sections. Coronal and sagittal re formations. FINDINGS: Frontal sinuses: Clear. Ethmoid sinuses: Moderate opacification in the right sided cells. Left cells are relatively clear. Sphenoid sinuses: Clear. Maxillary sinuses: Both cells are mostly opacified from mucosal thickening and there is bilateral si nus fluid. Some portions of the medial maxillary sinus rubio are not clearly seen as distinct from th e nasal cavity, most apparent on the right. General: Mild nasal septal deviation toward the right. The right superior turbinate is not distinct ly visualized. The other nasal turbinates are relatively atrophic. Mastoid processes are aerated. W hen compared to head CT dated 09/23/2016, the visualized sinuses at that time were clear. IMPRESSION: 1. Moderately severe acute on chronic paranasal sinusitis. Consider ENT follow-up.
--- NOTE | 2018-05-01 11:53 | CT ---
EXAM: CT of the head without contrast History: Headache. Comparison: Head CT 09/23/2016 Technique: Multiplanar CT images through the head were obtained without the administration of IV con trast Findings: Air-fluid levels within the bilateral maxillary sinuses. Mastoid air cells are clear in g eneral. No acute calvarial abnormalities. Intracranially the ventricular and cisternal spaces are normal in size, shape and configuration for a patient of this age. No dominant mass or midline shift. No hydrocephalous. No acute intracranial hemorrhage or abnormal extraaxial fluid collections. Impression: 1. No acute intracranial process. 2. Acute bilateral maxillary sinusitis
[2018-05-01] MEDS ORDERED: ROCEPHIN 1 GM in SODIUM CHLORIDE 50 ML IV STA (12:21)
[2018-05-01] MEDS ORDERED: DECADRON 4 MG/ML SDV IVP STA (12:22)
[2018-05-01] MEDS ORDERED: ZOFRAN 4 MG/2 ML IVP PRN (12:36)
[2018-05-01] MEDS ORDERED: TYLENOL PO PRN (12:36)
[2018-05-01] MEDS ORDERED: ROCEPHIN ONE (12:54)
[2018-05-01] MEDS ORDERED: TORADOL IVP STA (12:59)
[2018-05-01 13:49] VITALS: BMI 34.0
[2018-05-01] MEDS: LOVENOX SUBCUT SCH (15:52)
[2018-05-01] MEDS ORDERED: NITROSTAT SL PRN (16:16)
[2018-05-01] MEDS ORDERED: ALBUTEROL 0.083% NEB NEB PRN (16:16)
[2018-05-01] MEDS ORDERED: NON-FORMULARY MEDICATION (Clonidine Hcl [Clonidine Hcl] 0.3 MG) PO SCH (16:30)
[2018-05-01] MEDS: FLEXERIL PO SCH (16:56)
[2018-05-01] MEDS ORDERED: VASOTEC IV IVP STA (17:52)
[2018-05-01] MEDS: CATAPRES PO SCH (18:34)
[2018-05-01] MEDS ORDERED: DORZOLAMIDE OP SCH (21:00)
[2018-05-01] MEDS ORDERED: TIMOLOL OP SCH (21:00)
[2018-05-01] MEDS ORDERED: AMITRIPTYLINE HCL 50 MG PO SCH (21:00)
[2018-05-01] MEDS ORDERED: MORPHINE 2 MG/ML SYRINGE ONE ×2 (21:28→21:30)
[2018-05-02] MEDS: BENADRYL PO SCH ×2 (03:58→20:46)
[2018-05-02] MEDS: LOPRESSOR PO SCH ×3 (03:59→20:46)
[2018-05-02] MEDS: CATAPRES PO SCH ×4 (03:59→20:46)
[2018-05-02] MEDS: FLEXERIL PO SCH ×4 (03:59→20:47)
[2018-05-02] MEDS: ELAVIL PO SCH ×2 (03:59→20:46)
[2018-05-02] MEDS: CARDIZEM PO SCH ×3 (03:59→20:47)
[2018-05-02] MEDS: XALATAN OP SCH ×2 (04:00→20:45)
[2018-05-02] MEDS: SYNTHROID PO SCH ×2 (06:04)
[2018-05-02] MEDS: ASPIRIN EC PO SCH (08:51)
[2018-05-02] MEDS: LOVENOX SUBCUT SCH (08:52)
[2018-05-02] MEDS: COSOPT OP SCH ×2 (08:52→20:45)
[2018-05-02] MEDS ORDERED: NON-FORMULARY MEDICATION (Levothyroxine Sodium [Synthroid] 125 MCG) PO SCH (09:00)
[2018-05-02] MEDS ORDERED: BACTROBAN TP SCH (09:00)
--- NOTE | 2018-05-02 13:43 | HP ---
DATE OF SERVICE: 05/01/18 CHIEF COMPLAINT: Headache for three to four days, sinus drainage, cough and congestion then started having midsternal chest pain radiating to the left arm and left side of the back. HISTORY OF PRESENT ILLNESS: The patient came to the emergency room and was seen by Dr. Cortez in the emergency room. Blood pressure was 182/119, heart rate 63. Elevated white count 15,000. CT head showed severe bilateral maxillary sinusitis. At that time, he did give a dose of Hydralazine 25 mg, Dexamethasone one dose, Rocephin and Toradol. Blood perssure was still elevated after all these interventions, 158/ 98. By that time she was admitted to the hospital for chest pain, uncontrolled hypertension and sinusitis. REVIEW OF SYSTEMS: CONSTITUTIONAL: No fever, no chills. HEENT: Headache. Sinus drainage. ENDOCRINE: No weight gain; no weight loss. CVS: Chest pain. No PND, no orthopnea. Shortness of breath. No PND, no orthopnea. RESPIRATORY: Cough and congestion. No hemoptysis. GI: No nausea, no vomiting. No abdominal pain. No melena. : No hematuria. No polyuria. MUSCULOSKELETAL: No joint swelling. PSYCHIATRIC: Anxiety. No depression. No suicidal thoughts. No homicidal thoughts. SKIN: Intact, no open lesions. PAST MEDICAL HISTORY: Hypertension Hyperlipidemia Palpitations COPD GERD Osteoarthritis Hypothyroidism PAST SURGICAL HISTORY: Tubal ligation Glaucoma PERSONAL HISTORY: , lives with . She use to smoke tobacco, quit 20 years ago. FAMILY HISTORY: High blood pressure, hypertension and Triple A. MEDICATIONS: (HOME) Aspirin Albuterol Xalatan Cyclobenzeprine Benadryl Nitrostat Diltiazem Metoprolol Levothyroxine Clonidine Amitriptyline ALLERGIES: TYLENOL, HYDROCODONE, LANOLIN, PREDNISONE, PEANUTS PHYSICAL EXAMINATION: GENERAL: The patient is in distress from the pain. V/S: BP 158/98, respiratory rate 18, heart rate 67, temperature 98.5, saturation 98. HEENT: Bilateral frontal sinusitis and maxillary sinus tenderness. Atraumatic, normocephalic. No scleral icterus. Pallor positive. Mucosa dry. NECK: Supple. No JVD, no bruit. No lymphadenopathy. No thyromegaly. HEART: S1, S2 normal. No murmur. No cyanosis or clubbing. No ascites. LUNGS: Clear to auscultation. No rales or rhonchi. ABDOMEN: Soft, nontender. Bowel sounds are active. No CVA tenderness. No rigidity or guarding. EXTREMITIES: No pedal edema. No cyanosis or clubbing MUSCULOSKELETAL: Normal joints, no swelling. NEUROLOGIC: The patient is awake and alert. SKIN: Intact; no open lesions. LYMPHATIC: No lymph nodes palpable. LABS: White count 15.16, hemoglobin 13.3, hematocrit 38.9, platelet count 335. Sodium 139, potassium 4.3, chloride 104, bicarb 22, BUN 8, creatinine 0.67. CT head severe maxillary sinusitis. ASSESSMENT: 1. UNCONTROLLED HYPERTENSION 2. SEVERE MAXILLARY SINUSITIS 3. CHEST PAIN 4. ANXIETY 5. HYPERTENSION 6. DYSLIPIDEMIA 7. OBESITY 8. OSTEOARTHRITIS 9. HYPOTHYROIDISM PLAN: 1. Admit the patient to the regular floor. 2. CBC, CMP today and daily. 3. Cardiac enzymes and troponin. 4. Rocephin 1 gm daily. 5. Decadron 6. Albuterol 7. Levothyroxine 8. Continue home medications. 9. Lovenox for DVT prophylaxis. TIME SPENT: MORE THAN 70 minutes MTDD
[2018-05-02] MEDS: BACTROBAN TP SCH ×2 (14:38→20:46)
[2018-05-02] MEDS: ROCEPHIN 1 GM in SODIUM CHLORIDE 50 ML IV SCH (14:39)
[2018-05-03] MEDS: SYNTHROID PO SCH ×2 (05:32)
[2018-05-03] MEDS: ASPIRIN EC PO SCH (09:44)
[2018-05-03] MEDS: BACTROBAN TP SCH (09:45)
[2018-05-03] MEDS: COSOPT OP SCH (09:45)
[2018-05-03] MEDS: CARDIZEM PO SCH (09:46)
[2018-05-03] MEDS: CATAPRES PO SCH ×2 (09:46→15:59)
[2018-05-03] MEDS: FLEXERIL PO SCH ×2 (09:46→16:00)
[2018-05-03] MEDS: LOVENOX SUBCUT SCH (09:47)
[2018-05-03] MEDS: ROCEPHIN 1 GM in SODIUM CHLORIDE 50 ML IV SCH (09:47)
[2018-05-03] MEDS: LOPRESSOR PO SCH (09:47)
[2018-05-03 14:03] VITALS: BP 124/79; TEMP 98.3
--- NOTE | 2018-05-03 14:55 | PCM.HOSP ---
- Initial Hospital Care [id number] 70 Minutes Bedside ([id number]): 05/01 - Subsequent Care [id number] 35 Minutes per Day ([id number]): 05/02 - Hospital Discharge [id number] More than 30 Minutes ([id number]): 05/03
--- NOTE | 2018-05-08 09:51 | PN ---
DATE OF SERVICE: 05/02/18 SUBJECTIVE: The patient was admitted from the emergency room for uncontrolled hypertension, acute sinusitis with intractable headache. The patient had a fever today around noon time. Still having cough and congestion, sinus drainage and headache. Demerol and pain medications are helping some. Blood pressure is 149/96, respiratory rate 20, temperature 98.4, pulse rate 67, saturation 98. REVIEW OF SYSTEMS: CONSTITUTIONAL: No fever, no chills. HEENT: Atraumatic, normocephalic. Mucosa dry. Pallor positive. No icterus. Still frontal headache and maxillary sinus headache. ENDOCRINE: No weight gain, no weight loss. CVS: No angina symptoms. No CHF symptoms. No palpitations. No atypical chest pain for CAD. No shortness of breath. No PND, no orthopnea. RESPIRATORY: No cough, no hemoptysis. GI: No nausea, no vomiting. No abdominal pain. : No hematuria. No polyuria. MUSCULOSKELETAL: No joint swelling. PSYCHIATRIC: Not anxious. No depression. No suicidal thoughts. No homicidal thoughts. SKIN: Intact. No rash. PHYSICAL EXAMINATION: HEENT: Normocephalic, atraumatic. Mucosa dry, pallor positive. NECK: Supple. No JVD, no carotid bruit. No lymphadenopathy. LUNGS: Decreased and clear to auscultation. No rales or rhonchi. HEART: S1, S2 normal. No S3. No murmur, gallop or regurgitation. ABDOMEN: Soft, nontender. Bowel sounds active. No rigidity. No rebound or guarding. No CVA tenderness. EXTREMITIES: No cyanosis, clubbing or pedal edema. MUSCULOSKELETAL: No joint swelling. NEUROLOGIC: Awake, alert. No focal deficit. LYMPHATIC: No lymph nodes palpable. SKIN: Intact. LABS: White count 15.16, hemoglobin 13.3, hematocrit 38.9, platelet count 335. Sodium 139, potassium 4.3, chloride 104, bicarb 22, BUN 8, creatinine 0.67, glucose 92. ASSESSMENT: 1. INTRACTABLE HEADACHE FROM SINUSITIS AND UNCONTROLLED HYPERTENSION 2. FAILED OUTPATIENT MANAGEMENT WITH AUGMENTIN 3. DYSLIPIDEMIA 4. HYPOTHYROIDISM 5. COPD 6. ASTHMA 7. TUBAL LIGATION PLAN: 1. Rocephin IV 2. Bactroban ointment, nasal 3. Medication management 4. Demerol for pain 5. Lovenox TIME SPENT: More than 35 minutes MTDD
--- NOTE | 2018-05-08 10:52 | DS ---
DATE OF SERVICE: 05/03/18 FINAL DIAGNOSIS: 1. UNCONTROLLED HYPERTENSION 2. HEADACHE 3. ACUTE SINUSITIS, TREATMENT FAILURE OUTPATIENT 4. DYSLIPIDEMIA 5. HYPOTHYROIDISM 6. COPD 7. ASTHMA 8. GERD 9. GLAUCOMA, STATUS POST SURGERY 10. TUBAL LIGATION 11. FORMER SMOKER 12. LEFT VENTRICULAR HYPERTROPHY 13. POLYPECTOMY DISCHARGE INSTRUCTIONS: Followup appointment in the [facility] within 3 to 4 days. MEDICATIONS AT DISCHARGE: Continue Albuterol Clonidine Cyclobenzaprine Synthroid Nitrostat Amitriptyline Aspirin Benzepril Latanoprost Diltiazem Lopressor NEW PRESCRIPTIONS: Augmentin 875 three times a day for 7 days DIET INSTRUCTIONS: Cardiac and Healthy ACTIVITY: As much as tolerated DISEASE SPECIFIC EDUCATION: Uncontrolled hypertension, intracranial pressure and bleeding discussed, verbalized understanding HOSPITAL COURSE: 48-year-old female who was recently seen in the office for sinus congestion and upper respiratory infection was started on Augmentin. The sinuses were getting worse. I checked her blood pressure and it was very high. She came to the emergency room and was seen in the emergency room by the ER physician. BP 182/ 119. Hydralazine was given. Toradol was given. Demerol was given. Slowly blood pressure came down to 158/98. CT head showed severe sinusitis. Chest x-ray was normal. At that time, the patient was admitted to the hospital for uncontrolled hypertension, kidney failure, sinusitis infection, started on Rocephin. Decadron shot was given. By the next day the patient started feeling better, still has some facial pain. With the continued antibiotic, today she is feeling a lot better. She is up and about walking. Blood pressure has been under control 126/83, 126/88. No pain, no headache. At that time, the patient was discharged home on Augmentin and will be following the patient as outpatient. Advised to take medication with food. TIME SPENT: MORE THAN 65 MINUTES MTDD
== END 2018-05-03 16:15 | disposition home or self-care (01) | DRG 103 ==
LOC: ED 10:39 → MEDSURG B 12:33
PROVIDERS: ADMIT Emergency Medicine; ATTEND Emergency Medicine
DX: R51 Headache (principal); I10 Essential (primary) hypertension; J01.00 Acute maxillary sinusitis, unspecified; J45.909 Unspecified asthma, uncomplicated; J44.9 Chronic obstructive pulmonary disease, unspecified; E78.5 Hyperlipidemia, unspecified; E03.9 Hypothyroidism, unspecified; E66.9 Obesity, unspecified; K21.9 Gastro-esophageal reflux disease without esophagitis; M19.90 Unspecified osteoarthritis, unspecified site; F41.9 Anxiety disorder, unspecified; R68.84 Jaw pain; Z68.34 Body mass index [BMI] 34.0-34.9, adult
CPT/HCPCS: 36415; 80053; 81001; 84484; 85025; 93005; 93010; 96365; 96375; 97802; 99284

== ENCOUNTER 2018-05-23 13:39 | Emergency (ER) | payer OTHER ==
[2018-05-23 13:54] VITALS: TEMP 98.3; BMI 33.3
[2018-05-23] MEDS ORDERED: ZESTRIL PO STA (14:01)
[2018-05-23] MEDS ORDERED: DILAUDID 0.5 MG/0.5 ML SYRINGE IM STA (14:04)
--- NOTE | 2018-05-23 14:43 | CT ---
EXAM: CT of the head without contrast History: Headache. Comparison: Head CT 05/01/2018 Technique: Multiplanar CT images through the head were obtained without the administration of IV con trast Findings: Partially visualized opacification of the right maxillary sinus. Mastoid air cells are cl ear in general. No acute calvarial abnormalities. Intracranially the ventricular and cisternal spaces are normal in size, shape and configuration for a patient of this age. No dominant mass or midline shift. No hydrocephalous. No acute intracranial hemorrhage or abnormal extraaxial fluid collections. Impression: 1. No acute intracranial process. 2. Right maxillary sinusitis
--- NOTE | 2018-05-23 15:09 | ED.PDOC ---
General ED Provider: Dr. ELOY BARKLEY Chief Complaint: Headache Stated Complaint: headache Time Seen by Physician: 14:00 Mode of Arrival: Walk-In Information Source: Patient, Family Exam Limitations: No limitations [facility] and T[facility] Documentation Reviewed and Agree: Yes Does patient meet sepsis criteria?: No If yes, has appropriate treatment been initiated?: No System Inflammatory Response Syndrome: Not Applicable (seen with dianelys man at all times ) Sepsis Protocol: For patient's 13 years and over: Temp is 96.8 and below OR 101 and greater Pulse >90 BPM Resp >20/minute Acutely Altered Mental Status Are patient's symptoms suggestive of a new infection, such as: -Pneumonia -Skin, Soft Tissue -Endocarditis -UTI -Bone, Joint Infection -Implantable Device -Acute Abdominal Infection -Wound Infection -Meningitis -Blood Stream Catheter Infection -Unknown Neurological Complaint Exam - Headache Complaint/Exam Onset: Gradual Duration: 1 day Symptoms Are: Still present Timing: Constant Episodes Lasting: Hours Worst Headache Ever: No Initial Severity: Moderate Current Severity: Moderate Location: Frontal Character: Reports: Dull, Throbbing Aggravating: Reports: Position change Alleviating: Reports: None Associated Signs and Symptoms: Reports: Neck pain Related History: Reports: Similar episode Related Surgical History: Reports: None SAH Risk Factors: Reports: None Meningitis Risk Factors: Reports: None SDH Risk Factors: Reports: None Temporal Arteritis Risk Factors: Reports: Female Normal Head CT Within Last 12 Months: No Fundoscopic Exam: Present: Normal Findings Papilledema Present: No Temporal Artery Tenderness: Present: None Sinus Tenderness: Present: None TMJ Tenderness: Present: None Glascow Coma Scale (see protocol): 15 Meningeal Signs Positive: No ROM Limited In: No Limitiations Focal Weakness: Present: None Focal Sensory Loss: Present: None Gait: Normal Nystagmus Present: No Gag Reflex Present: Yes Differential Diagnoses: Migraine, Sinus Headache Review of Systems - Review Of Systems Constitutional: Reports: No symptoms Eyes: Reports: No symptoms Ears, Nose, Mouth, Throat: Reports: No symptoms Respiratory: Reports: No symptoms Cardiac: Reports: No symptoms GI: Reports: No symptoms : Reports: No symptoms Musculoskeletal: Reports: No symptoms Skin: Reports: No symptoms Neurological: Reports: Headache Endocrine: Reports: No symptoms Hematologic/Lymphatic: Reports: No symptoms All Other Systems: Reviewed and Negative Past Medical History - Past Medical History Previously Healthy: Yes Endocrine: Reports: Hypothyroid, Dyslipidemia Cardiovascular: Reports: CAD, Hypertension Respiratory: Reports: None Hematological: Reports: None Gastrointestinal: Reports: None Genitourinary: Reports: None Neuro/Psych: Reports: None Musculoskeletal: Reports: Unknown Cancer: Reports: None Last Menstrual Period: menopause Other Pertinent Past Medical History: Arthritis, Glaucoma - Surgical History General Surgical History: Reports: Tubal ligation (25 years ago ), Other (Left eye surgery x 2 ) - Family History Family History: Reports: None - Social History Smoking Status: Former smoker Hx Substance Use: No Alcohol Screening: None Physical Exam - Physical Exam Appearance: Well-appearing, No pain distress, Well-nourished Eyes: DELORES, EOMI, Conjunctiva clear ENT: Ears normal, Nose normal, Oropharynx normal Respiratory: Airway patent, Breath sounds clear, Breath sounds equal, Respirations nonlabored Cardiovascular: RRR, Pulses normal, No rub, No murmur GI/: Soft, Nontender, No masses, Bowel sounds normal, No Organomegaly Musculoskeletal: Normal strength, ROM intact, No edema, No calf tenderness Skin: Warm, Dry, Normal color Neurological: Sensation intact, Motor intact, Reflexes intact, Cranial nerves intact, Alert, Oriented Psychiatric: Affect appropriate, Mood appropriate Interpretation - Radiology Interpretation Radiology Interpretation By: Radiologist Radiology Results: No acute changes Exam Interpreted: CT Scan Critical Care Note - Critical Care Note Total Time (mins): 0 (h/a and hypertensin improved markedly) Course - Course Orders, Labs, Meds: Orders Category Date Time Status Hydromorphone HCl [Dilaudid 0.5 mg/0.5 ml Syringe] MEDS 05/23/18 14:04 Stat 0.5 mg IM ONCE STA CT HEAD W/O CONTRAST Stat RADS 05/23/18 14:07 Ordered Medications Discontinued Medications Generic Name Dose Route Start Last Admin Trade Name Freq PRN Reason Stop Dose Admin Hydromorphone HCl 0.5 mg 05/23/18 14:04 05/23/18 14:10 Dilaudid 0.5 Mg/0.5 Ml Syringe IM 05/23/18 14:05 0.5 mg ONCE STA Administration Vital Signs: Temp Pulse Resp BP Pulse Ox 05/23/18 14:20 62 16 165/97 H 96 05/23/18 13:51 98.3 F 61 16 189/124 H 97 Departure - Departure Time of Disposition: 15:09 Disposition: HOME SELF-CARE Discharge Problem: Headache Sinusitis Qualifiers: Sinusitis location: unspecified location Chronicity: unspecified Qualified Code (s): J32.9 - Chronic sinusitis, unspecified Instructions: Migraine Headache (ED), Acute Headache (ED), Sinusitis (ED) Condition: Good Pt referred to PMD for follow-up: Yes IPMP verified?: No Additional Instructions: Please call your Family Physician as soon as possible to schedule a follow-up appointment. Prescriptions: Amoxicillin 500 mg PO Q8HR #30 tablet Allergies/Adverse Reactions: Allergies hydrocodone bitartrate [From Lortab] Adverse Reaction (Intermediate, Verified 13:55) Itching codeine [Codeine] Adverse Reaction (Verified 05/23/18 13:55) egg Adverse Reaction (Verified 05/23/18 13:55) lanolin Adverse Reaction (Verified 05/23/18 13:55) prednisone Adverse Reaction (Verified 05/23/18 13:55) onions Allergy (Severe, Uncoded 05/01/18 10:46) tongue itchy and numbness bottom lip peanuts Allergy (Mild, Uncoded 05/01/18 10:46) nausea tomatoes Allergy (Mild, Uncoded 05/01/18 10:46) Hawkins stomach Steroids Adverse Reaction (Intermediate, Uncoded 05/01/18 10:46) Palpitations Tape Adverse Reaction (Mild, Uncoded 05/01/18 10:46) Itching Pt reports that paper tape does not cause itching. Home Medications: Ambulatory Orders Aspirin [Aspirin EC] 325 mg PO DAILY 01/30/14 Latanoprost [Xalatan] 1 drop OP BEDTIME 02/17/17 Diphenhydramine HCl [Benadryl] 25 mg PO BEDTIME 08/26/17 Dorzolamide/Timolol/Pf [Cosopt Pf Eye Drops] 1 each OP BID 08/26/17 Nitroglycerin [Nitrostat] 0.4 mg SL Q5MIN X 3 DOSES PRN 08/26/17 Diltiazem HCl [Cardizem] 60 mg PO BID tablet 08/31/17 Amitriptyline HCl 50 mg PO BEDTIME 05/01/18 Amoxicillin 500 mg PO Q8HR #30 tablet 05/23/18
[2018-05-23 15:44] VITALS: BP 177/95
== END 2018-05-23 15:44 | disposition home or self-care (01) ==
LOC: ED 13:39
DX: J32.9 Chronic sinusitis, unspecified (principal); R51 Headache
CPT/HCPCS: 96372; 99283

== ENCOUNTER 2018-07-05 09:25 | Emergency (ER) ==
[2018-07-05 09:31] VITALS: BP 179/115; TEMP 97.3; BMI 34.4
[2018-07-05] MEDS ORDERED: DUONEB NEB STA (09:55)
[2018-07-05] MEDS ORDERED: TORADOL IM STA (09:55)
--- NOTE | 2018-07-05 10:04 | ED.PDOC ---
General ED Provider: Dr. JAZMIN ROBLES Chief Complaint: Chest Wall Injury/Pain Stated Complaint: Patient states that she fell on to the edge of cast iron tub in her bathroom hitting her left chest wall. Now has pain to touch and breath. Time Seen by Physician: 09:45 Mode of Arrival: Walk-In Information Source: Patient Exam Limitations: No limitations [facility] T[facility] Documentation Reviewed and Agree: Yes Does patient meet sepsis criteria?: No System Inflammatory Response Syndrome: Not Applicable Sepsis Protocol: For patient's 13 years and over: Temp is 96.8 and below OR 101 and greater Pulse >90 BPM Resp >20/minute Acutely Altered Mental Status Are patient's symptoms suggestive of a new infection, such as: -Pneumonia -Skin, Soft Tissue -Endocarditis -UTI -Bone, Joint Infection -Implantable Device -Acute Abdominal Infection -Wound Infection -Meningitis -Blood Stream Catheter Infection -Unknown Trauma/Injury Complaint Exam - Truncal Trauma Complaint/Exam Location of Pain: Reports: Left Onset: 1 hour ago Symptoms Are: Still present Onset of Pain: Reports: Immediate, Post accident Initial Severity: Severe Current Severity: Severe Mechanism: Reports: Blunt trauma, Fall Aggravating: Reports: Movement, Deep breathing Alleviating: Reports: None Associated Signs and Symptoms: Reports: Short of air, Chest pain (chest wall ) Related History: Denies: Similar episode, Occupational injury, Anticoagulants, Prior rib fracture, COPD, Heart Disease Immobilization Removed Post Exam: No Vertebral Tenderness Present: No Vertebral Deformity Present: No Trachial Deviation Present: No JVD Present: No Muffled Heart Sounds Present: No Paradoxical Chest Wall Movement Present: No Abdominal Guarding Present: No Abdominal Rigidity Present: No Referred Shoulder Pain (Kehr's Sign) Present: No Differential Diagnoses: Chest Wall Contusion, Rib Fracture Review of Systems - Review Of Systems Constitutional: Reports: No symptoms Eyes: Reports: No symptoms Ears, Nose, Mouth, Throat: Reports: No symptoms Respiratory: Reports: Short of air, Wheezing Cardiac: Reports: Chest pain (on the left wall. ) GI: Reports: No symptoms : Reports: No symptoms Musculoskeletal: Reports: Muscle pain Skin: Reports: No symptoms Neurological: Reports: No symptoms Endocrine: Reports: No symptoms Hematologic/Lymphatic: Reports: No symptoms All Other Systems: Reviewed and Negative Past Medical History - Past Medical History Previously Healthy: Yes Endocrine: Reports: Hypothyroid, Dyslipidemia Cardiovascular: Reports: CAD, Hypertension Respiratory: Reports: Asthma Hematological: Reports: None Gastrointestinal: Reports: None Genitourinary: Reports: None Neuro/Psych: Reports: None Musculoskeletal: Reports: Unknown Cancer: Reports: None Last Menstrual Period: none Other Pertinent Past Medical History: Arthritis, Glaucoma - Surgical History General Surgical History: Reports: Tubal ligation (25 years ago ), Other (Left eye surgery x 2 ) - Family History Family History: Reports: None - Social History Smoking Status: Former smoker Hx Substance Use: No Alcohol Screening: None Physical Exam - Physical Exam Appearance: Obese Pain Distress: Severe Neck: Supple Respiratory: Airway patent, Breath sounds clear, Breath sounds equal, Respirations nonlabored Cardiovascular: RRR, Pulses normal, No rub, No murmur Musculoskeletal: Normal strength, ROM intact, No edema, No calf tenderness Skin: Warm, Dry, Normal color Neurological: Sensation intact, Motor intact, Reflexes intact, Cranial nerves intact, Alert, Oriented Psychiatric: Anxious Interpretation - Radiology Interpretation Radiology Interpretation By: ED Physician Radiology Results: Negative Exam Interpreted: CXR, Other ( rib x ray ) Critical Care Note - Critical Care Note Total Time (mins): 0 Course - Course Orders, Labs, Meds: Orders Category Date Time Status NEBULIZER TREATMENT Stat CARDIO 07/05/18 09:56 Ordered Ipratropium/Albuterol Neb [Duoneb] MEDS 07/05/18 09:55 Stat 1 vial NEB ONCE STA Ketorolac Tromethamine [Toradol] MEDS 07/05/18 09:55 Stat 60 mg IM ONCE STA RIBS, W/PA CHEST LEFT Stat RADS 07/05/18 09:55 Ordered Medications Generic Name Dose Route Start Last Admin Trade Name Freq PRN Reason Stop Dose Admin Albuterol/Ipratropium 1 vial 07/05/18 09:55 Duoneb NEB 07/05/18 09:56 ONCE STA Vital Signs: Temp Pulse Resp BP Pulse Ox 07/05/18 09:29 97.3 F L 81 20 179/115 H 98 Departure - Departure Time of Disposition: 10:28 Disposition: HOME SELF-CARE Discharge Problem: Chest wall pain Instructions: Chest Wall Pain (ED) Condition: Fair Pt referred to PMD for follow-up: Yes IPMP verified?: No Additional Instructions: Take medications as needed for pain Follow up with PCP in 3 days Prescriptions: Oxycodone HCl [Oxycodone] 5 mg PO Q6H PRN #20 tablet PRN Reason: severe pain Allergies/Adverse Reactions: Allergies hydrocodone bitartrate [From Lortab] Adverse Reaction (Intermediate, Verified 09:32) Itching codeine [Codeine] Adverse Reaction (Verified 07/05/18 09:32) egg Adverse Reaction (Verified 07/05/18 09:32) lanolin Adverse Reaction (Verified 07/05/18 09:32) prednisone Adverse Reaction (Verified 07/05/18 09:32) onions Allergy (Severe, Uncoded 05/01/18 10:46) tongue itchy and numbness bottom lip peanuts Allergy (Mild, Uncoded 05/01/18 10:46) nausea tomatoes Allergy (Mild, Uncoded 05/01/18 10:46) Hawkins stomach Steroids Adverse Reaction (Intermediate, Uncoded 05/01/18 10:46) Palpitations Tape Adverse Reaction (Mild, Uncoded 05/01/18 10:46) Itching Pt reports that paper tape does not cause itching. Home Medications: Ambulatory Orders Aspirin [Aspirin EC] 325 mg PO DAILY 01/30/14 Latanoprost [Xalatan] 1 drop OP BEDTIME 02/17/17 Diphenhydramine HCl [Benadryl] 25 mg PO BEDTIME 08/26/17 Dorzolamide/Timolol/Pf [Cosopt Pf Eye Drops] 1 each OP BID 08/26/17 Nitroglycerin [Nitrostat] 0.4 mg SL Q5MIN X 3 DOSES PRN 08/26/17 Oxycodone HCl [Oxycodone] 5 mg PO Q6H PRN #20 tablet 07/05/18
--- NOTE | 2018-07-05 10:24 | DI ---
EXAM: Single view chest. Three views of the left ribs. HISTORY: Chest wall pain, fall COMPARISON: 05/01/2018 FINDINGS: The heart is normal in size. Pulmonary vascularity is within normal limits. No focal airsp aiden opacity or pleural effusion is seen. Osseous structures are unremarkable. No evidence of displace d left rib fracture is seen. IMPRESSION: No acute chest findings. No evidence of displaced left rib fracture.
[2018-07-05] MEDS ORDERED: DEMEROL 50 MG/ML VIAL IM STA (10:41)
[2018-07-05] MEDS ORDERED: PHENERGAN 25 MG/ML VIAL IM STA (10:41)
== END 2018-07-05 11:18 | disposition home or self-care (01) ==
LOC: ED 09:28
DX: R07.89 Other chest pain (principal); R06.02 Shortness of breath; R06.2 Wheezing; W18.30XA Fall on same level, unspecified, initial encounter
CPT/HCPCS: 94640; 96372; 99283

== ENCOUNTER 2018-07-08 09:38 | Outpatient (CLI) ==
[2013-02-27 06:14] VITALS: TEMP 98.2
== END 2018-07-08 09:39 | disposition home or self-care (01) ==
LOC: RHC-LAB 09:38 → LAB 09:39
PROVIDERS: ATTEND Nurse Practitioner Family
DX: E03.9 Hypothyroidism, unspecified (principal); E78.5 Hyperlipidemia, unspecified
CPT/HCPCS: 36415; 80061; 84443

== ENCOUNTER 2018-10-01 10:27 | Observation (INO) | payer OTHER ==
[2018-10-01] MEDS ORDERED: MORPHINE 4 MG/ML SYRINGE IVP STA (10:35)
[2018-10-01] MEDS ORDERED: ASPIRIN CHEWABLE PO STA (10:35)
[2018-10-01] MEDS ORDERED: ZOFRAN 4 MG/2 ML IVP STA ×2 (10:35→15:53)
--- NOTE | 2018-10-01 11:00 | DI ---
EXAM: Single view of the chest. History: Right-sided chest pain. Comparison: Chest radiograph 05/01/2018 Findings: Heart size is normal. No focal consolidation. No appreciable pleural fluid and no pneumo thorax. No acute osseous abnormalities. Impression: No acute cardiopulmonary process
[2018-10-01] MEDS ORDERED: ZESTRIL PO STA (11:20)
--- NOTE | 2018-10-01 14:10 | CT ---
EXAM: CTA of the chest. History: Chest pain. Comparison: Chest radiograph 10/01/2018, chest CT 02/17/2017 Technique: Multiplanar CT images through the chest were obtained following administration of IV cont rast. MIP images and 3-D reconstructions were also provided. Findings: Heart size is normal. No pericardial effusion. Great vessels are unremarkable. No pulmo nary arterial filling defects. No thoracic lymphadenopathy. No consolidation. No pleural fluid and no pneumothorax. No suspicious lung masses or lung nodules. Within the visualized upper abdomen. No acute findings. No acute osseous abnormalities. Impression: No pulmonary embolism and no evidence for pneumonia. No acute intrathoracic process
[2018-10-01] MEDS ORDERED: NORVASC PO STA (14:39)
--- NOTE | 2018-10-01 15:26 | US ---
EXAM: Bilateral lower extremity venous Doppler History: Elevated D-dimer. Technique: Multiple sonographic images through the bilateral lower extremities were obtained. Color duplex Doppler was used to interrogate vascular flow. Findings: The bilateral common femoral, greater saphenous, profunda, superficial femoral, popliteal, peroneal, posterior tibial and anterior tibial veins demonstrate spontaneous flow with normal compre ssion and normal augmentation. Impression: No sonographic evidence for deep venous thrombosis
--- NOTE | 2018-10-01 15:35 | ED.PDOC ---
General ED Provider: Dr. ELOY BARKLEY Chief Complaint: Chest Pain Stated Complaint: chest pain right sided Time Seen by Physician: 10:30 Mode of Arrival: Walk-In Information Source: Patient Exam Limitations: No limitations Primary Care Provider: ELY PRATHER Nursing and Triage Documentation Reviewed and Agree: Yes Does patient meet sepsis criteria?: No System Inflammatory Response Syndrome: Not Applicable Sepsis Protocol: For patient's 13 years and over: Temp is 96.8 and below OR 101 and greater Pulse >90 BPM Resp >20/minute Acutely Altered Mental Status Are patient's symptoms suggestive of a new infection, such as: -Pneumonia -Skin, Soft Tissue -Endocarditis -UTI -Bone, Joint Infection -Implantable Device -Acute Abdominal Infection -Wound Infection -Meningitis -Blood Stream Catheter Infection -Unknown Cardiovascular Complaint Exam - Chest Pain Complaint/Exam Onset: Gradual Duration: right sided today at rest Symptoms Are: Still present Timing: Constant Initial Severity: Mild Current Severity: Mild Location: Reports: Midsternal Pain Radiates: Reports: None Character: Reports: Tightness Aggravating: Reports: None Alleviating: Reports: None Associated Signs and Symptoms: Denies: Diaphoresis, Nausea, Vomiting, Fever, Palpitations, Cough, Hemoptysis, Back pain, Abdominal pain, Dizziness, Short of air, Calf pain, Calf swelling Related History: Reports: Similar episode Related Surgical History: Reports: None History of Healthcare-Acquired Pneumonia: Reports: No AMI/ACS Risk Factors: Reports: Sedentary, Hypertension TAD Risk Factors: Reports: Hypertension Pulmonary Embolism Risk Factors: Reports: None Prior Care for this Complaint: No Recent Stress Test: No Recent Echo/LV Function: No JVD Present: No Subcutaneous Emphysema Present: No Diminshed Breath Sounds: No Reproducible Chest Wall Pain: No Bilateral Pulses Present: Yes Unequal Pulses Noted: No If Risk Factors for PE Consider: Chest CT with contrast Differential Diagnoses: Stable Angina, Pulmonary Embolism Review of Systems - Review Of Systems Constitutional: Reports: No symptoms Eyes: Reports: No symptoms Ears, Nose, Mouth, Throat: Reports: No symptoms Respiratory: Reports: No symptoms Cardiac: Reports: Chest pain GI: Reports: No symptoms : Reports: No symptoms Musculoskeletal: Reports: No symptoms Skin: Reports: No symptoms Neurological: Reports: No symptoms Endocrine: Reports: No symptoms Hematologic/Lymphatic: Reports: No symptoms All Other Systems: Reviewed and Negative Past Medical History - Past Medical History Previously Healthy: Yes Endocrine: Reports: Hypothyroid, Dyslipidemia Cardiovascular: Reports: CAD, Hypertension Respiratory: Reports: Asthma Hematological: Reports: None Gastrointestinal: Reports: None Genitourinary: Reports: None Neuro/Psych: Reports: None Musculoskeletal: Reports: Unknown Cancer: Reports: None Last Menstrual Period: 3 yrs ago Other Pertinent Past Medical History: Arthritis, Glaucoma - Surgical History General Surgical History: Reports: Tubal ligation (25 years ago ), Other (Left eye surgery x 2 ) - Family History Family History: Reports: None - Social History Smoking Status: Former smoker Hx Substance Use: No Alcohol Screening: None Physical Exam - Physical Exam Appearance: Well-appearing, No pain distress, Well-nourished Eyes: DELORES, EOMI, Conjunctiva clear ENT: Ears normal, Nose normal, Oropharynx normal Respiratory: Airway patent, Breath sounds clear, Breath sounds equal, Respirations nonlabored Cardiovascular: RRR, Pulses normal, No rub, No murmur GI/: Soft, Nontender, No masses, Bowel sounds normal, No Organomegaly Musculoskeletal: Normal strength, ROM intact, No edema, No calf tenderness Skin: Warm, Dry, Normal color Neurological: Sensation intact, Motor intact, Reflexes intact, Cranial nerves intact, Alert, Oriented Psychiatric: Affect appropriate, Mood appropriate Interpretation - Radiology Interpretation Radiology Interpretation By: Radiologist Radiology Results: No acute changes (negative P.E.) - Acquisition Consultant Rate: Normal Rhythm: Sinus Ectopy: None - EKG Interpretation Rate: Normal Rhythm: Sinus Ectopy: None Re-Evaluation - Re-Evaluation Time of Re-Evaluation: 12:00 Status: Improved Vital Signs Stable: Yes Pain Level: 0 Appearance: NAD Lungs: Clear Skin: Warm and Dry Neuro: Alert and Oriented X3 CV: RRR - Re-Evaluation Time of Re-Evaluation: 15:36 Status: Improved Vital Signs Stable: Yes Pain Level: 0 Appearance: NAD Skin: Warm and Dry Neuro: Alert and Oriented X3 CV: RRR Physician Notification - Case Discussed Physician Notified: PMD Time of Notification: 15:36 Admit/Transition Orders Entered by ED Provider: Yes Admit To: Inpatient Critical Care Note - Critical Care Note Total Time (mins): 0 Course - Course Hematology/Chemistry: 10/01/18 10:30 10/01/18 10:30 Orders, Labs, Meds: Lab Review 10/01/18 10/01/18 10/01/18 10:20 10:30 10:30 WBC 9.58 RBC 5.10 Hgb 14.3 Hct 42.5 MCV 83.3 MCH 28.0 MCHC 33.6 RDW Coeff of Lalo 14.1 Plt Count 281 Immature Gran % (Auto) 0.8 Neut % (Auto) 57.4 Lymph % (Auto) 25.5 [place] % (Auto) 5.4 Eos % (Auto) 10.5 H Baso % (Auto) 0.4 Immature Gran # (Auto) 0.1 Neut # (Auto) 5.5 Lymph # (Auto) 2.4 [place] # (Auto) 0.5 Eos # (Auto) 1.0 H Baso # (Auto) 0.0 PT INR APTT D-Dimer (Manual) 1117.07 Sodium 139.1 Potassium 3.92 Chloride 103.5 Carbon Dioxide 29.0 Anion Gap 10.52 BUN 6.9 L Creatinine 0.62 Estimated GFR (MDRD) 102.00 BUN/Creatinine Ratio 11.12 Glucose 104.5 Calcium 9.68 Total Bilirubin 0.45 AST 39.2 H ALT 26.8 Alkaline Phosphatase 88.7 Total Creatine Kinase 73.0 Troponin I < 0.012 Total Protein 8.16 Albumin 4.60 Globulin 3.56 Albumin/Globulin Ratio 1.29 10/01/18 10:30 WBC RBC Hgb Hct MCV MCH MCHC RDW Coeff of Lalo Plt Count Immature Gran % (Auto) Neut % (Auto) Lymph % (Auto) [place] % (Auto) Eos % (Auto) Baso % (Auto) Immature Gran # (Auto) Neut # (Auto) Lymph # (Auto) [place] # (Auto) Eos # (Auto) Baso # (Auto) PT 9.3 INR 0.93 APTT 24.4 D-Dimer (Manual) Sodium Potassium Chloride Carbon Dioxide Anion Gap BUN Creatinine Estimated GFR (MDRD) BUN/Creatinine Ratio Glucose Calcium Total Bilirubin AST ALT Alkaline Phosphatase Total Creatine Kinase Troponin I Total Protein Albumin Globulin Albumin/Globulin Ratio Orders Category Date Time Status EKG-(ED ONLY) Stat CARDIO 10/01/18 10:59 Completed EKG-(ED ONLY) Stat CARDIO 10/01/18 11:47 Completed NPO REMINDER: IMAGING ONCE CARE 10/01/18 12:40 Completed ED IV/MEDIPORT/POWERPORT .ONCE EMERGENCY 10/01/18 10:35 Active CBC W/ AUTO DIFF Stat LAB 10/01/18 10:30 Completed COMPREHENSIVE METABOLIC PANEL Stat LAB 10/01/18 10:30 Completed CREATINE KINASE Stat LAB 10/01/18 10:30 Completed D-DIMER Stat LAB 10/01/18 10:20 Completed PARTIAL THROMBOPLASTIN TIME Stat LAB 10/01/18 10:30 Completed PT WITH INR Stat LAB 10/01/18 10:30 Completed TROPONIN I Stat LAB 10/01/18 10:30 Completed 0.9 % Sodium Chloride [Saline Flush] MEDS 10/01/18 10:34 Active 1 syr IVF PRN PRN Amlodipine Besylate [Norvasc] MEDS 10/01/18 14:39 Discontinued 5 mg PO ONCE STA Aspirin [Aspirin Chewable] MEDS 10/01/18 10:35 Discontinued 324 mg PO ONCE STA Lisinopril [Zestril] MEDS 10/01/18 11:20 Discontinued 40 mg PO ONCE STA Morphine Sulfate [Morphine 4 mg/ml Syringe] MEDS 10/01/18 10:35 Discontinued 4 mg IVP ONCE STA Ondansetron HCl/Pf [Zofran 4 mg/2 ml] MEDS 10/01/18 10:35 Discontinued 4 mg IVP ONCE STA CHEST, 1V AP ONLY Stat RADS 10/01/18 10:[address] CHEST PE PROTOCOL Stat RADS 10/01/18 12:40 Completed ULTRASOUND VENOUS SCAN ABDI LEGS [U/S VENOUS SCAN ABDI RADS 10/01/18 14:41 Completed LEGS] Stat Medications Generic Name Dose Route Start Last Admin Trade Name Freq PRN Reason Stop Dose Admin Sodium Chloride 1 syr 10/01/18 10:34 10/01/18 10:49 Saline Flush IVF 1 syr PRN PRN Administration To flush IV Discontinued Medications Generic Name Dose Route Start Last Admin Trade Name Freq PRN Reason Stop Dose Admin Amlodipine Besylate 5 mg 10/01/18 14:39 10/01/18 14:49 Norvasc PO 10/01/18 14:40 5 mg ONCE STA Administration Aspirin 324 mg 10/01/18 10:35 10/01/18 10:49 Aspirin Chewable PO 10/01/18 10:36 324 mg ONCE STA Administration Lisinopril 40 mg 10/01/18 11:20 10/01/18 11:27 Zestril PO 10/01/18 11:21 40 mg ONCE STA Administration Morphine Sulfate 4 mg 10/01/18 10:35 10/01/18 10:57 Morphine 4 Mg/Ml Syringe IVP 10/01/18 10:36 4 mg ONCE STA Administration Ondansetron HCl 4 mg 10/01/18 10:35 10/01/18 10:57 Zofran 4 Mg/2 Ml IVP 10/01/18 10:36 4 mg ONCE STA Administration Vital Signs: Temp Pulse Resp BP Pulse Ox 10/01/18 12:00 70 12 152/99 H 96 10/01/18 10:28 96.9 F L 75 16 191/131 H 99 DONNA Risk Score DONNA Risk Score: Risk Score Odds of by 30D 0 0.1 (0.1-0.2) 1 0.3 (0.2-0.3) 2 0.4 (0.3-0.5) 3 0.7 (0.6-0.9) 4 1.2 (1.0-1.5) 5 2.2 (1.9-2.6) 6 3.0 (2.5-3.6) 7 4.8 (3.8-6.1) Departure - Departure Time of Disposition: 15:36 Disposition: ADMITTED INPATIENT Discharge Problem: Chest pain Instructions: Angina (DC) Condition: Good Pt referred to PMD for follow-up: Yes IPMP verified?: No Allergies/Adverse Reactions: Allergies hydrocodone bitartrate [From Lortab] Adverse Reaction (Intermediate, Verified 10:38) Itching codeine [Codeine] Adverse Reaction (Verified 10/01/18 10:38) egg Adverse Reaction (Verified 10/01/18 10:38) lanolin Adverse Reaction (Verified 10/01/18 10:38) prednisone Adverse Reaction (Verified 10/01/18 10:38) onions Allergy (Severe, Uncoded 05/01/18 10:46) tongue itchy and numbness bottom lip peanuts Allergy (Mild, Uncoded 05/01/18 10:46) nausea tomatoes Allergy (Mild, Uncoded 05/01/18 10:46) Hawkins stomach Steroids Adverse Reaction (Intermediate, Uncoded 05/01/18 10:46) Palpitations Tape Adverse Reaction (Mild, Uncoded 05/01/18 10:46) Itching Pt reports that paper tape does not cause itching. Home Medications: Ambulatory Orders Aspirin [Aspirin EC] 325 mg PO DAILY 01/30/14 Latanoprost [Xalatan] 1 drop OP BEDTIME 02/17/17 Diphenhydramine HCl [Benadryl] 25 mg PO BEDTIME 08/26/17 Dorzolamide/Timolol/Pf [Cosopt Pf Eye Drops] 1 each OP BID 08/26/17 Nitroglycerin [Nitrostat] 0.4 mg SL Q5MIN X 3 DOSES PRN 08/26/17
[2018-10-01] MEDS ORDERED: NITROSTAT SL PRN (15:37)
[2018-10-01] MEDS ORDERED: SODIUM CHLORIDE 1,000 ML IV SCH (16:00)
[2018-10-01 17:01] VITALS: BMI 34.5
[2018-10-01] MEDS: CATAPRES PO SCH (20:50)
[2018-10-01] MEDS: CARDIZEM PO SCH (20:57)
[2018-10-01] MEDS: LOPRESSOR PO SCH (20:58)
[2018-10-01] MEDS: TIMOLOL OP SCH (20:58)
[2018-10-01] MEDS: DORZOLAMIDE OP SCH (20:58)
[2018-10-01] MEDS ORDERED: AMITRIPTYLINE HCL 50 MG PO SCH (21:00)
[2018-10-01] MEDS ORDERED: XALATAN OP SCH (21:00)
[2018-10-02] MEDS ORDERED: SYNTHROID PO SCH (06:30)
[2018-10-02] MEDS ORDERED: ASPIRIN EC PO SCH ×2 (08:00→11:00)
[2018-10-02] MEDS: CATAPRES PO SCH ×2 (09:34→18:04)
[2018-10-02] MEDS: DORZOLAMIDE OP SCH (09:35)
[2018-10-02] MEDS: TIMOLOL OP SCH (09:35)
[2018-10-02] MEDS: CARDIZEM PO SCH (09:37)
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
[2018-10-02] MEDS ORDERED: NON-FORMULARY MEDICATION (Metoprolol Tartrate [Lopressor] 100 MG) PO SCH (10:45)
[2018-10-02] MEDS: LOPRESSOR PO SCH (11:22)
[2018-10-02 14:02] VITALS: BP 100/60; TEMP 98.8
--- NOTE | 2018-10-03 10:06 | STRESSMOD ---
Date of Test:10/02/18 Ordering Physician: DR. 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 Reason for Exam: CHEST PAIN, HYPERTENSION Smoking History: QUIT 20 YRS AGO Height: 63" Weight: 200 LBS Current Medications: XALATAN, BENADRYL, NITROSTAT, METOPROLOL, SYNTHROID, CLONIDINE, DILTIAZEM, AMITRIPTYLINE, CYCLOBENZAPRINE Resting EKG: SINUS RHYTHM/ NO ACUTE CHANGES Target Heart Rate: 144/170 MAX S-T SEGMENT STAGE MPH/GRADE HEART RATE BPM BLOOD PRESSURE mmhg RHYTHM +/- ELEVATION DEPRESSION SYMPTOMS At Rest 70 BPM 164/92 MMHG SR X NONE 1 1.7/0% 100 BPM 170/100 MMHG SR X NONE 2 1.7/5% 105 BPM 172/108 MMHG SR X NONE 3 1.7/10% 4 2.5/12% 5 3.4/14% Immediately After 125 BPM SR X SHORT OF BREATH Minutes Post Exercise 5:00 70 BPM SR X NONE Minutes Post Exercise DURATION OF EXERCISE: 7:12 MAXIMUM HEART RATE REACHED: 125 BPM REASON FOR TERMINATION: SHORT OF BREATH 98% OXYGEN SATURATION WITH EXERCISE ON ROOM AIR METS 5.0 INTERPRETATION: 1. NON DIAGNOSTIC--DID NOT REACH TARGET HEART RATE 2. NO EVIDENCE OF ISCHEMIA FROM RESTING HEART RATE 70 BPM TO 125 BPM POST EXERCISE 3. NO CHEST PAIN OR DISCOMFORT 4. BLOOD PRESSURE RESPONSE: HYPERTENSION AT REST AND WITH EXERCISE 5. NO ARRHYTHMIAS NORMAL LEFT VENTRICULAR CONTRACTILITY--RESTING AND POST EXERCISE MTDD
--- NOTE | 2018-10-03 10:08 | ECHOSTRESS ---
Date of Exam: 10/02/18 Ordering Physician: DR. HAKEEM WOODS Reason for Echo: CHEST PAIN, HYPERTENSION, STRESS TEST --NON DIAGNOSTIC M-Mode Normal Adult Results LV Dimensions Normal Adult Results AoV Opening excursions >1.6 LVEDD-base- 3.5-5.8 Ao root dimensions 2.0-3.7 LVESD-base- 3.1-4.6 L. Atrium dimensions 1.9-3.8 Post. Wall thickness 0.8-1.1 IV septum (thickness) 0.7-1.2 Post. Wall excursion 0.72-1.3 Septal motion Systolic motion R. Ventricular cavity 1.5-2.0 LVEF 60% Paradoxical septal wall motion 2-D: NORMAL LEFT VENTRICULAR CONTRACTILITY--RESTING AND POST EXERCISE M-MODE: MV: AV: TV: PV: CHAMBER SIZE: WALL MOTION: NORMAL LEFT VENTRICULAR CONTRACTILITY--RESTING AND POST EXERCISE PERICARDIUM: INTERPRETATION: 1. NORMAL LEFT VENTRICULAR CONTRACTILITY--RESTING AND POST EXERCISE MTDD
--- NOTE | 2018-10-03 10:14 | ECHO2D ---
Date of Exam: 10/02/18 Ordering Physician: DR. PRIYANKA DEMPSEY Room #: [id number] Reason for Echo: CHEST PAIN, HYPERTENSION M-Mode Normal Adult Results LV Dimensions Normal Adult Results AoV Opening excursions >1.6 >1.6 LVEDD-base- 3.5-5.8 3.7 Ao root dimensions 2.0-3.7 3.3 LVESD-base- 3.1-4.6 L. Atrium dimensions 1.9-3.8 3.5 Post. Wall thickness 0.8-1.1 1.2 IV septum (thickness) 0.7-1.2 1.2 Post. Wall excursion 0.72-1.3 NORMAL Septal motion NORMAL Systolic motion R. Ventricular cavity 1.5-2.0 NORMAL LVEF 60% 64% Paradoxical septal wall motion NORMAL 2-D : 2-D M Mode Echocardiogram was performed using apical four chamber and left parasternal long and short axis views. Mitral, tricuspid and aortic valves appear to be normal. Contractility of the left ventricle seems to be normal, so is the cavity size. Left atrial cavity size and aortic root appear to be normal. There is no pericardial effusion. There is no thrombus noted in the left ventricular or left aortic cavity. No mitral valve prolapse noted. M-MODE: MV: NORMAL AV: NORMAL TV: NORMAL PV: CHAMBER SIZE: NORMAL WALL MOTION: NORMAL PERICARDIUM: NORMAL INTERPRETATION: 1. BORDERLINE LEFT VENTRICULAR HYPERTROPHY 2. NORMAL VALVES 3. NORMAL LEFT VENTRICULAR CONTRACTILITY MTDD
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
--- NOTE | 2018-10-06 14:01 | CONS ---
DATE OF CONSULTATION: 10/02/18 REASON FOR CONSULTATION: Chest pain. HISTORY OF PRESENT ILLNESS: 48-year-old white female hospitalized on 10/01/18 with chest pain. The patient's chest pain was mostly back pain, left-sided infrascapular. The patient says this usually happens when her lower number of blood pressure goes over 100. The patient's pain was nonexertional associated with maybe mild shortness of breath but no PND, no sweating. Along with left scapular area pain, the patient said her blood pressure has been running high. REVIEW OF SYSTEMS: CONSTITUTIONAL: Mild fatigue. No night sweats. No malaise, lethargy. No fever or chills. HEENT: Eyes: No visual changes. No eye pain. No eye discharge. ENT: No sinus drainage. No epistaxis. No sinus pain. No sore throat. No odynophagia. No ear pain. No congestion. RESPIRATORY: No cough, no congestion. No hemoptysis. No shortness of breath. CARDIOVASCULAR: Back pain, scapular area, no substernal chest pain. No exertional chest discomfort. No PND, no orthopnea. No angina symptoms. No CHF symptoms. No palpitations. GASTROINTESTINAL: No abdominal pain. No nausea or vomiting. No diarrhea or constipation. No hematemesis. No hematochezia. GENITOURINARY: No urgency. No frequency. No dysuria. No hematuria. No obstructive symptoms. No discharge. No pain. No significant abnormal bleeding. MUSCULOSKELETAL: No musculoskeletal pain. No joint swelling. NEUROLOGICAL: No headache. No neck pain. No syncope. No seizures. No dizziness. PSYCHIATRIC: Not anxious. No depression. No suicidal thoughts. No homicidal thoughts. SKIN: No rash. No lesions. No wounds. ENDOCRINE: No unexplained weight loss. No weight gain. HEMATOLOGIC/LYMPHATIC: No anemia. No purpura. No petechiae. No prolonged or excessive bleeding. No palpable lymph nodes. MEDICATIONS: Aspirin Albuterol Benadryl Nitrostat Metoprolol Synthroid Clonidine Diltiazem Amitriptyline Cyclobenzaprine ALLERGIES: HYDROCODONE, CODEINE, EGG, PREDNISONE, ONIONS, PEANUTS, TOMATOES, STEROIDS, TAPE. PAST MEDICAL/SURGICAL HISTORY: History of labile hypertension Hypothyroidism Tubal ligation Asthma SOCIAL/PERSONAL/FAMILY HISTORY: Nonsmoker. 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 She is . PHYSICAL EXAMINATION: GENERAL: The patient is oriented to time, place and person. VITAL SIGNS: Temperature 98.3, pulse 70, respiratory rate 16, BP 110/50. That was after she had stress test done. Pulse 98%. HEENT: Head normocephalic, atraumatic. Eyes: Extraocular muscles are intact. Pupils are equal, round and reactive to light and accommodation. Ears: No lesions. Nose appeared normal. Throat: No exudate or erythema. NECK: Supple. No JVD, no carotid bruit. No lymphadenopathy or thyromegaly. LUNGS: Decreased breath sounds but clear to auscultation. Percussion note normal. Chest symmetrical. HEART: S1, S2, no S3. No murmurs. No cyanosis or clubbing. No ascites. Pulses: Dorsalis pedis and posterior tibial pulses +1 bilaterally. ABDOMEN: Soft. Nontender. Bowel sounds active. No CVA tenderness. No mass felt. EXTREMITIES: No edema. Full range of motion of all extremities, equal. NEUROLOGIC: HOT SHOT: Normal. No focal deficit. Cranial nerves II through XII are grossly intact. No headache, no double vision or headache. SKIN: Not dry. Intact. Turgor - normal. LYMPHATIC: No palpable lymph nodes/no lymphedema. MUSCULOSKELETAL: Normal joints with no swelling. Muscle tone is normal. EKG sinus rhythm. No acute changes. The patient's stress test - the patient walked for at least 7 minutes on modified Alvaro protocol, METs level reached 5. The patient's heart rate 70 went up to [address]-T wave change. No chest pain. The pressure response was high with severe hypertension. The patient's cardiac markers are negative. Hemoglobin 14, hematocrit 43, WBC 9,500, normal differential. Creatinine 0.5, BUN 9. Lipid profile unknown. T4, TSH pending. ASSESSMENT: 1. Chest pain seems to be noncardiac. The patient's stress echo did not show any ischemia whether it was nondiagnostic. The patient's echo done showed borderline LVH with normal LV contractility. Normal LV size. RECOMMENDATIONS: 1. The patient's blood pressure seems to be well-controlled. 2. Advised to continue the same medication. 3. Discussed the case with the attending and he is planning to get the Clonidine dose lower than what it is. I agree with him. Until then the patient is going to be continued on Diltiazem and Metoprolol. May need angiotensin receptor hayden. 4. The patient is obese with BMI 35, advised to lose weight. Diet discussed with her for weight loss. 5. The patient's non HDL should be 100, discussed with the patient. Blood pressure goal should be 135/85 discussed with the patient. Thanks for the referral. BLU
--- NOTE | 2018-10-06 14:41 | CONS ---
CODING FOR BILLING 10/02/18 ONE TIME VISIT THE PATIENT HAD ECHO AND STRESS ECHO DONE ON THE SAME DAY [facility]
== END 2018-10-02 18:45 | disposition home or self-care (01) ==
LOC: ED 10:27 → MEDSURG A 15:38
PROVIDERS: ADMIT General Practice; ATTEND General Practice
DX: R07.89 Other chest pain (principal); I10 Essential (primary) hypertension; M25.562 Pain in left knee; R25.2 Cramp and spasm; H40.9 Unspecified glaucoma; J42 Unspecified chronic bronchitis; Z68.34 Body mass index [BMI] 34.0-34.9, adult
CPT/HCPCS: 36415; 80053; 82550; 84484; 85025; 85379; 85610; 85651; 85730; 86140; 93005; 93010; 96360; 96375; 96376; 97802; 99217; 99220; 99255; 99284

== ENCOUNTER 2018-10-06 10:20 | Outpatient (CLI) ==
[2013-02-27 06:14] VITALS: TEMP 98.2
== END 2018-10-06 10:21 | disposition home or self-care (01) ==
LOC: RHC-LAB 10:20
PROVIDERS: ATTEND Nurse Practitioner Family
DX: E03.9 Hypothyroidism, unspecified (principal); I10 Essential (primary) hypertension
CPT/HCPCS: 36415; 84443

== ENCOUNTER 2019-02-06 10:24 | Emergency (ER) ==
[2019-02-06 10:29] VITALS: TEMP 97.6; BMI 34.0
--- NOTE | 2019-02-06 10:58 | ED.PDOC ---
General ED Provider: Dr. FRANDY MUNOZ Chief Complaint: Hypertension Stated Complaint: 49 y cau female pt states that she was more controlled before on Clonidine that present Lisinopril.Hernandez her doctor today with 185/ 105 and was adviced to cme to ER.BP i ER is 154 /98.She also takes metoprolol, diltiazem and now Lisinopril.For leg cramps akes amitryotylline 50 mg.day,No acute distress,. Her chest sensation is in left upper subclavicular region and does not radiate. Time Seen by Physician: 10:40 Mode of Arrival: Walk-In Information Source: Patient Exam Limitations: No limitations Primary Care Provider: ELY PRATHER Nursing and Triage Documentation Reviewed and Agree: Yes Does patient meet sepsis criteria?: No System Inflammatory Response Syndrome: Not Applicable Sepsis Protocol: For patient's 13 years and over: Temp is 96.8 and below OR 101 and greater Pulse >90 BPM Resp >20/minute Acutely Altered Mental Status Are patient's symptoms suggestive of a new infection, such as: -Pneumonia -Skin, Soft Tissue -Endocarditis -UTI -Bone, Joint Infection -Implantable Device -Acute Abdominal Infection -Wound Infection -Meningitis -Blood Stream Catheter Infection -Unknown Cardiovascular Complaint Exam - Chest Pain Complaint/Exam Onset: Sudden Symptoms Are: Still present Initial Severity: Mild Current Severity: Mild Location: Reports: Discrete Pain Radiates: Reports: None Character: Reports: Aching Aggravating: Reports: Exertion Alleviating: Reports: Rest Related History: Reports: Similar episode Related Surgical History: Reports: None AMI/ACS Risk Factors: Reports: Hypertension TAD Risk Factors: Reports: Hypertension Prior Care for this Complaint: No Recent Stress Test: No Recent Echo/LV Function: No JVD Present: No Subcutaneous Emphysema Present: No Diminshed Breath Sounds: No Reproducible Chest Wall Pain: No Bilateral Pulses Present: No Unequal Pulses Noted: No If Risk Factors for AMI/ACS Consider: EKG, Cardiac Enzymes Care and Dx Studies Discussed With: Family Quality Indicator For Non-Traumatic Chest Pain/Syncope: EKG Performed Review of Systems - Review Of Systems Constitutional: Reports: No symptoms Eyes: Reports: No symptoms Ears, Nose, Mouth, Throat: Reports: No symptoms Respiratory: Reports: No symptoms Cardiac: Reports: Chest pain GI: Reports: No symptoms : Reports: No symptoms Musculoskeletal: Reports: No symptoms Skin: Reports: No symptoms Neurological: Reports: No symptoms Endocrine: Reports: No symptoms Hematologic/Lymphatic: Reports: No symptoms All Other Systems: Reviewed and Negative Past Medical History - Past Medical History Previously Healthy: Yes Endocrine: Reports: Hypothyroid, Dyslipidemia Cardiovascular: Reports: CAD, Hypertension Respiratory: Reports: Asthma Hematological: Reports: None Gastrointestinal: Reports: None Genitourinary: Reports: None Neuro/Psych: Reports: None Musculoskeletal: Reports: Unknown Cancer: Reports: None Last Menstrual Period: 3 years ago Other Pertinent Past Medical History: Arthritis, Glaucoma - Surgical History General Surgical History: Reports: Tubal ligation (25 years ago ), Other (Left eye surgery x 2 ) - Family History Family History: Reports: None - Social History Smoking Status: Former smoker Hx Substance Use: No Alcohol Screening: None - Immunizations Tetanus Shot up to Date: No Physical Exam - Physical Exam Appearance: Well-appearing Ill-appearing: None Pain Distress: Mild Eyes: DELORES, EOMI, Conjunctiva clear ENT: Ears normal, Nose normal, Oropharynx normal Neck: Supple Respiratory: Airway patent, Breath sounds clear Cardiovascular: RRR, Pulses normal, No rub GI/: Soft, Nontender, No masses Musculoskeletal: Normal strength, ROM intact Skin: Warm, Dry Neurological: Sensation intact, Motor intact Psychiatric: Affect appropriate, Mood appropriate Critical Care Note - Critical Care Note Total Time (mins): 0 Course - Course Hematology/Chemistry: 02/06/19 11:05 02/06/19 11:05 Orders, Labs, Meds: Lab Review 02/06/19 02/06/19 11:05 11:05 WBC 10.40 H RBC 5.05 Hgb 14.7 Hct 43.6 MCV 86.3 MCH 29.1 MCHC 33.7 RDW Coeff of Lalo 13.5 Plt Count 258 Immature Gran % (Auto) 0.5 Neut % (Auto) 52.2 Lymph % (Auto) 30.6 [place] % (Auto) 5.8 Eos % (Auto) 10.4 H Baso % (Auto) 0.5 Immature Gran # (Auto) 0.1 Neut # (Auto) 5.4 Lymph # (Auto) 3.2 [place] # (Auto) 0.6 Eos # (Auto) 1.1 H Baso # (Auto) 0.1 Sodium 140.8 Potassium 4.18 Chloride 102.1 Carbon Dioxide 26.4 Anion Gap 16.48 BUN 9.4 Creatinine 0.60 Estimated GFR (MDRD) 105.00 BUN/Creatinine Ratio 15.66 Glucose 85.5 Calcium 10.00 Total Bilirubin 0.47 AST 32.9 ALT 23.3 Alkaline Phosphatase 82.8 Total Creatine Kinase 88.0 Troponin I < 0.012 Total Protein 7.64 Albumin 4.79 Globulin 2.85 Albumin/Globulin Ratio 1.68 Orders Category Date Time Status EKG-(ED ONLY) Stat CARDIO 02/06/19 10:59 Completed CBC W/ AUTO DIFF Stat LAB 02/06/19 11:05 Completed COMPREHENSIVE METABOLIC PANEL Stat LAB 02/06/19 11:05 Completed CREATINE KINASE Stat LAB 02/06/19 11:05 Completed TROPONIN I Stat LAB 02/06/19 11:05 Completed CHEST, 1V AP ONLY Stat RADS 02/06/19 10:59 Completed Vital Signs: Temp Pulse Resp BP Pulse Ox 02/06/19 10:25 97.6 F 71 16 178/128 H 95 DONNA Risk Score DONNA Risk Score: Risk Score Odds of by 30D 0 0.1 (0.1-0.2) 1 0.3 (0.2-0.3) 2 0.4 (0.3-0.5) 3 0.7 (0.6-0.9) 4 1.2 (1.0-1.5) 5 2.2 (1.9-2.6) 6 3.0 (2.5-3.6) 7 4.8 (3.8-6.1) Departure - Departure Time of Disposition: 12:07 Disposition: HOME SELF-CARE Discharge Problem: HTN (hypertension) Instructions: Chronic Hypertension (ED) Condition: Good Pt referred to PMD for follow-up: Yes IPMP verified?: No Additional Instructions: continue present medications as write,May take Lisinopril earlier with the metoprolol tab,before anticipated work at am, Allergies/Adverse Reactions: Allergies hydrocodone bitartrate [From Lortab] Adverse Reaction (Intermediate, Verified 10:38) Itching codeine [Codeine] Adverse Reaction (Verified 02/06/19 10:42) egg Adverse Reaction (Verified 02/06/19 10:42) lanolin Adverse Reaction (Verified 02/06/19 10:42) prednisone Adverse Reaction (Verified 02/06/19 10:42) onions Allergy (Severe, Uncoded 05/01/18 10:46) tongue itchy and numbness bottom lip peanuts Allergy (Mild, Uncoded 05/01/18 10:46) nausea tomatoes Allergy (Mild, Uncoded 05/01/18 10:46) Hawkins stomach Steroids Adverse Reaction (Intermediate, Uncoded 05/01/18 10:46) Palpitations Tape Adverse Reaction (Mild, Uncoded 05/01/18 10:46) Itching Pt reports that paper tape does not cause itching. Home Medications: Ambulatory Orders Aspirin [Aspirin EC] 325 mg PO BEDTIME 01/30/14 Latanoprost [Xalatan] 1 drop OP BEDTIME 02/17/17 Nitroglycerin [Nitrostat] 0.4 mg SL Q5MIN X 3 DOSES PRN 08/26/17 Dorzolamide HCl/Timolol Maleat [Cosopt] 1 drop OP 0500,2100 10/01/18 Disposition Discussed With: Patient, Family
--- NOTE | 2019-02-06 11:46 | DI ---
EXAM: Chest one view HISTORY: Chest pain COMPARISON: 10/01/2018 TECHNIQUE: Single view of the chest was performed FINDINGS: The lungs are clear. There is no pleural effusion or pneumothorax. The heart is normal i n size. The mediastinal contour is normal. There are no acute abnormalities of the bones. IMPRESSION: No acute cardiopulmonary process.
[2019-02-06 12:40] VITALS: BP 159/98
== END 2019-02-06 12:38 | disposition home or self-care (01) ==
LOC: ED 10:24
DX: I10 Essential (primary) hypertension (principal); R07.9 Chest pain, unspecified
CPT/HCPCS: 36415; 80053; 82550; 84484; 85025; 93005; 93010; 99283

== ENCOUNTER 2019-02-27 08:06 | Outpatient (CLI) ==
[2013-02-27 06:14] VITALS: TEMP 98.2
== END 2019-02-27 08:07 | disposition home or self-care (01) ==
LOC: RHC-LAB 08:06
PROVIDERS: ATTEND Nurse Practitioner Family
DX: I10 Essential (primary) hypertension (principal); E03.9 Hypothyroidism, unspecified
CPT/HCPCS: 36415; 80053; 80061; 84443; 85025

== ENCOUNTER 2019-02-28 15:05 | Emergency (ER) ==
[2019-02-28 15:11] VITALS: TEMP 97.8; BMI 34.2
--- NOTE | 2019-02-28 15:45 | ED.PDOC ---
General ED Provider: Dr. COLETTE OLIVA Chief Complaint: Chest Pain Stated Complaint: Elevated BP today. Meds recently adjusted by PCP and BP has been fluctuant and out of control. Previouly on Clonidine 0.3 mg bid which controlled BP but was discontinued Time Seen by Physician: 15:15 Mode of Arrival: Walk-In Information Source: Patient Exam Limitations: No limitations Primary Care Provider: ELY PRATHER Nursing and Triage Documentation Reviewed and Agree: Yes Does patient meet sepsis criteria?: No System Inflammatory Response Syndrome: Not Applicable Sepsis Protocol: For patient's 13 years and over: Temp is 96.8 and below OR 101 and greater Pulse >90 BPM Resp >20/minute Acutely Altered Mental Status Are patient's symptoms suggestive of a new infection, such as: -Pneumonia -Skin, Soft Tissue -Endocarditis -UTI -Bone, Joint Infection -Implantable Device -Acute Abdominal Infection -Wound Infection -Meningitis -Blood Stream Catheter Infection -Unknown Cardiovascular Complaint Exam - Hypertension Complaint/Exam Onset/Duration: Several years Symptoms Are: Still present Timing: Intermittent Reported B/P Prior to Arrival: 164/120 Aggravating: Reports: Exertion Alleviating: Reports: None Associated Signs and Symptoms: Reports: Anxiety, Recent stress, Headache. Denies: Chest pain, Vision changes, Numbness, Tingling, Weakness, Dizziness, Short of air, Swelling Related History: Reports: Similar episode, Current Chicho Inhibitors, Current ARBs , Current Beta Jose Maria, Current Ca Klein.Jose Maria, Current Diuretic Cardiac Risk Factors: Reports: Hypertension, Smoking, Elevated lipids, CAD Recent Change in Medications: Yes A/V Nicking: No Papilledema Present: No JVD Present: No Carotid Bruit Present: No Femoral Pulses Bounding: No Differential Diagnoses: Hypertensive Urgency, Angina Review of Systems - Review Of Systems Constitutional: Reports: Weakness Eyes: Reports: No symptoms Ears, Nose, Mouth, Throat: Reports: No symptoms Respiratory: Reports: No symptoms Cardiac: Reports: Chest pain, Irregular heart rate, Palpitations GI: Reports: No symptoms : Reports: No symptoms Musculoskeletal: Reports: No symptoms Skin: Reports: No symptoms Neurological: Reports: No symptoms Endocrine: Reports: No symptoms Hematologic/Lymphatic: Reports: No symptoms All Other Systems: Reviewed and Negative Past Medical History - Past Medical History Previously Healthy: Yes Endocrine: Reports: Hypothyroid, Dyslipidemia Cardiovascular: Reports: CAD, Hypertension Respiratory: Reports: Asthma Hematological: Reports: None Gastrointestinal: Reports: None Genitourinary: Reports: None Neuro/Psych: Reports: None Musculoskeletal: Reports: Unknown Cancer: Reports: None Last Menstrual Period: 3 yrs ago Other Pertinent Past Medical History: Arthritis, Glaucoma - Surgical History General Surgical History: Reports: Tubal ligation (25 years ago ), Other (Left eye surgery x 2 ) - Family History Family History: Reports: None - Social History Smoking Status: Former smoker Hx Substance Use: No Alcohol Screening: None Physical Exam - Physical Exam Appearance: Obese Ill-appearing: Mild Pain Distress: None Eyes: DELORES, EOMI, Conjunctiva clear ENT: Ears normal, Nose normal, Oropharynx normal Neck: Supple Respiratory: Airway patent, Breath sounds clear, Breath sounds equal, Respirations nonlabored Cardiovascular: RRR, Pulses normal, No rub, No murmur GI/: Soft, Nontender, No masses, Bowel sounds normal, No Organomegaly Musculoskeletal: Normal strength, ROM intact, No edema, No calf tenderness Skin: Warm, Dry, Normal color Neurological: Sensation intact, Motor intact, Reflexes intact, Cranial nerves intact, Alert, Oriented Psychiatric: Affect appropriate, Mood appropriate Critical Care Note - Critical Care Note Total Time (mins): 60 Comments: 1720 hrs BP 143/90 Course - Course Hematology/Chemistry: 02/28/19 15:40 02/28/19 15:40 Orders, Labs, Meds: Lab Review 02/28/19 02/28/19 15:40 15:40 WBC 14.54 H D RBC 4.99 Hgb 14.7 Hct 43.7 MCV 87.6 MCH 29.5 MCHC 33.6 RDW Coeff of Lalo 13.7 Plt Count 286 Immature Gran % (Auto) 0.6 Neut % (Auto) 66.1 Lymph % (Auto) 24.6 Harding % (Auto) 4.4 Eos % (Auto) 3.8 Baso % (Auto) 0.5 Immature Gran # (Auto) 0.1 Neut # (Auto) 9.6 H Lymph # (Auto) 3.6 H Harding # (Auto) 0.6 Eos # (Auto) 0.6 Baso # (Auto) 0.1 Sodium 136.2 Potassium 4.21 Chloride 98.3 Carbon Dioxide 26.0 Anion Gap 16.11 BUN 11.4 Creatinine 0.64 Estimated GFR (MDRD) 98.00 BUN/Creatinine Ratio 17.81 Glucose 90.0 Calcium 9.95 Total Bilirubin 0.53 AST 32.6 ALT 22.9 Alkaline Phosphatase 84.3 Troponin I < 0.012 Total Protein 8.07 Albumin 4.88 Globulin 3.19 Albumin/Globulin Ratio 1.52 Orders Category Date Time Status CBC W/ AUTO DIFF Stat LAB 02/28/19 15:40 Completed CMP [COMPREHENSIVE METABOLIC PANEL] Stat LAB 02/28/19 15:40 Completed TROPONIN I Stat LAB 02/28/19 15:40 Completed Clonidine HCl [Catapres] MEDS 02/28/19 15:44 Discontinued 0.1 mg PO ONCE STA Nitroglycerin [Nitrostat] MEDS 02/28/19 17:14 Discontinued 0.4 mg SL .STK-MED ONE Medications Discontinued Medications Generic Name Dose Route Start Last Admin Trade Name Freq PRN Reason Stop Dose Admin Clonidine 0.1 mg 02/28/19 15:44 02/28/19 15:53 Catapres PO 02/28/19 15:45 0.1 mg ONCE STA Administration Vital Signs: Temp Pulse Resp BP Pulse Ox 02/28/19 17:52 66 16 132/90 02/28/19 15:55 63 16 163/92 H 02/28/19 15:06 97.8 F 70 16 164/120 H 96 DONNA Risk Score DONNA Risk Score: Risk Score Odds of by 30D 0 0.1 (0.1-0.2) 1 0.3 (0.2-0.3) 2 0.4 (0.3-0.5) 3 0.7 (0.6-0.9) 4 1.2 (1.0-1.5) 5 2.2 (1.9-2.6) 6 3.0 (2.5-3.6) 7 4.8 (3.8-6.1) Departure - Departure Time of Disposition: 18:00 Disposition: HOME SELF-CARE Discharge Problem: Hypertensive urgency, Chest pain Instructions: Angina (ED), Chronic Hypertension (ED) Condition: Stable Pt referred to PMD for follow-up: Yes IPMP verified?: No Additional Instructions: Remain on existing meds Suggest increasing Clonidine to every 8 hrs three times daily as this had been beneficial previoulsy Use Nitro as needed Prescriptions: Nitroglycerin [Nitrostat] 0.4 mg SL ONCE PRN #25 tab.subl PRN Reason: Chest Pain Allergies/Adverse Reactions: Allergies hydrocodone bitartrate [From Lortab] Adverse Reaction (Intermediate, Verified 11:15) Itching codeine [Codeine] Adverse Reaction (Verified 03/17/19 11:15) egg Adverse Reaction (Verified 03/17/19 11:15) lanolin Adverse Reaction (Verified 03/17/19 11:15) prednisone Adverse Reaction (Verified 03/17/19 11:15) onions Allergy (Severe, Uncoded 03/17/19 11:15) tongue itchy and numbness bottom lip peanuts Allergy (Mild, Uncoded 03/17/19 11:15) nausea tomatoes Allergy (Mild, Uncoded 03/17/19 11:15) Hawkins stomach Steroids Adverse Reaction (Intermediate, Uncoded 03/17/19 11:15) Palpitations Tape Adverse Reaction (Mild, Uncoded 03/17/19 11:15) Itching Pt reports that paper tape does not cause itching. Home Medications: Ambulatory Orders Aspirin [Aspirin EC] 325 mg PO BEDTIME 01/30/14 Latanoprost [Xalatan] 1 drop OP BEDTIME 02/17/17 Nitroglycerin [Nitrostat] 0.4 mg SL Q5MIN X 3 DOSES PRN 08/26/17 Dorzolamide HCl/Timolol Maleat [Cosopt] 1 drop OP 0500,2100 10/01/18 Nitroglycerin [Nitrostat] 0.4 mg SL ONCE PRN #25 tab.subl 02/28/19 Ketorolac Tromethamine [Toradol] 10 mg PO Q6H #20 tablet 03/17/19 Disposition Discussed With: Patient, Family
[2019-02-28] MEDS: CATAPRES PO STA (15:53)
[2019-02-28] MEDS: NITROSTAT SL ONE (17:16)
[2019-02-28 17:53] VITALS: BP 132/90
== END 2019-02-28 18:25 | disposition home or self-care (01) ==
LOC: ED 15:05
DX: R07.9 Chest pain, unspecified (principal); I16.0 Hypertensive urgency; E78.5 Hyperlipidemia, unspecified; I25.10 Atherosclerotic heart disease of native coronary artery without angina pectoris; R53.1 Weakness; R00.2 Palpitations; E03.9 Hypothyroidism, unspecified; Z79.899 Other long term (current) drug therapy; F17.210 Nicotine dependence, cigarettes, uncomplicated
CPT/HCPCS: 36415; 80053; 84484; 85025; 99283

== ENCOUNTER 2019-03-02 12:57 | Outpatient (CLI) ==
[2013-02-27 06:14] VITALS: TEMP 98.2
[2019-03-02] MEDS ORDERED: ALBUTEROL 0.083% NEB NEB STA (13:18)
== END 2019-03-02 12:58 | disposition home or self-care (01) ==
LOC: CAR 12:57
PROVIDERS: ATTEND Nurse Practitioner Family
DX: R06.2 Wheezing (principal); R06.02 Shortness of breath; Z87.09 Personal history of other diseases of the respiratory system

== ENCOUNTER 2019-03-17 10:48 | Emergency (ER) ==
[2019-03-17 11:02] VITALS: TEMP 97.8; BMI 35.6
[2019-03-17 11:21] VITALS: BP 150/99
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
--- NOTE | 2019-03-17 12:39 | CT ---
EXAM: CT right shoulder without contrast HISTORY: Pain mid to lateral clavicle and AC joint COMPARISON: None TECHNIQUE: CT right shoulder performed without intravenous contrast. Coronal and sagittal reformatt ed images obtained FINDINGS: No fracture or dislocation. Moderate osteoarthritis acromioclavicular joint with joint sp aiden narrowing osteophyte formation. Mild to moderate osteoarthritis glenohumeral joint. No focal so ft tissue abnormality. Please refer to separate report CT chest regarding findings in the chest. IMPRESSION: 1. No fracture or dislocation. 2. Mild to moderate osteoarthritis
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
--- NOTE | 2019-03-17 12:59 | CT ---
EXAM: CT cervical spine. HISTORY: Right lateral neck pain. TECHNIQUE: CT cervical spine without contrast. Detailed axial sections. Coronal and sagittal re-fo rmations. COMPARISON: No comparison CT cervical spine. Some comparison is made to prior CT neck of 08/26/2013 . FINDINGS: Image quality is limited by body habitus, generalized demineralization and suboptimal plane of scanni ng relative to disc spaces. There is no scoliosis. Lateral masses of C1 and C2 are normally aligne d and the odontoid process is intact. No spondylolisthesis. There is endplate irregularity at C6/C7 which is most likely related to severe degenerative disc disease. Poorly visualized endplates at C7 /T1. These areas are especially poorly seen. No recent CT comparison is available. CT neck of 12/2012 appeared relatively normal at this level. There is at least mild central canal stenosis at C5 /C6 and C6/C7. No paraspinal inflammation or fluid collection is obvious. IMPRESSION: Limited exam. No convincing evidence of acute fracture or subluxation. Significant dege nerative changes of the C5- T1 levels. Given limitations of this CT exam, correlation with MRI can b e considered if indicated after careful patient history and physical exam.
[2019-03-17] MEDS ORDERED: TORADOL PO STA (13:28)
== END 2019-03-17 13:36 | disposition home or self-care (01) ==
LOC: ED 10:48
DX: S46.911A Strain of unspecified muscle, fascia and tendon at shoulder and upper arm level, right arm, initial encounter (principal); S16.1XXA Strain of muscle, fascia and tendon at neck level, initial encounter; V29.9XXA Motorcycle rider (driver) (passenger) injured in unspecified traffic accident, initial encounter; R51 Headache
CPT/HCPCS: 99283

== ENCOUNTER 2020-09-09 19:25 | Inpatient (IN) ==
[2020-09-09] MEDS ORDERED: ROCEPHIN 1 GM/50 ML D5W 1 GM/50 ML BAG IV STA (20:00)
[2020-09-09] MEDS ORDERED: SODIUM CHLORIDE 1,000 ML IV STA ×2 (20:00)
[2020-09-09] MEDS ORDERED: ZOFRAN 4 MG/2 ML IVP STA (20:00)
[2020-09-09 20:26] LABS: BASOPHILS # (AUTO) 0.1 K/uL (0-0.2); BASOPHILS % (AUTO) 0.3 % (0.0-3.0); EOSINOPHILS # (AUTO) 0.2 K/ul (0.0-0.7); EOSINOPHILS % (AUTO) 0.9 % (0.0-7.0); HEMATOCRIT 43.6 % (37.0-47.0); HEMOGLOBIN 15.2 g/dl (12.0-16.0); IMMATURE GRANULOCYTE # (AUTO) 0.1 (0.0-1.0); IMMATURE GRANULOCYTE % (AUTO) 0.7 % (0.0-5.0); LYMPHOCYTES # (AUTO) 1.4 K/uL (0.60-3.4); MEAN CORPUSCULAR HEMOGLOBIN 29.7 pg (27.0-31.0); MEAN CORPUSCULAR HGB CONC 34.9 (31.8-35.4); MEAN CORPUSCULAR VOLUME 85.2 fl (81.0-99.0); MONOCYTES # (AUTO) 0.9 K/uL (0.4-2.0); MONOCYTES % (AUTO) 4.5 (0-10); NEUTROPHILS # (AUTO) 16.7 K/ul (2.0-6.9); NEUTROPHILS % (AUTO) 86.6 % (42.2-75.2); PLATELET COUNT 317 10^3/uL (140-440); RDW COEFFICIENT OF VARIATION 13.6 % (11.6-14.8); RED BLOOD COUNT 5.12 10^6/ul (4.20-5.40); WHITE BLOOD COUNT 19.24 K/ul (4.6-10.2)
[2020-09-09 20:38] LABS: ALANINE AMINOTRANSFERASE 27.4 U/L (0-35); ALBUMIN 4.96 g/dL (3.5-5.0); ALKALINE PHOSPHATASE 98.8 U/L (38-126); AMYLASE 56.9 U/L (30-110); BLOOD UREA NITROGEN 10.8 mg/dL (7-17); CALCIUM 10.49 mg/dL (8.4-10.2); CARBON DIOXIDE 24.9 mmol/L (22-30.0); CHLORIDE 97.4 mmol/L (98-107); CREATINE KINASE 85.4 U/L (30-135); CREATININE 0.89 mg/dL (0.60-1.30); GLUCOSE 127.1 mg/dL (74-106); LIPASE 43.9 U/L (23-300); POTASSIUM 4.21 mmol/L (3.5-5.1); SODIUM 136.8 mmol/L (134.5-145)
[2020-09-09 20:41] LABS: SERUM PREGNANCY NEGATIVE (NEGATIVE)
[2020-09-09 21:09] LABS: TROPONIN I < 0.012 ng/ml (0.0000-0.120)
[2020-09-09] MEDS ORDERED: PHENERGAN 25 MG/ML VIAL 12.5 MG in SODIUM CHLORIDE 50 ML IV STA (21:30)
[2020-09-09 21:39] LABS: BILIRUBIN,URINE Negative (NEGATIVE); CLARITY,URINE Clear (CLEAR); COLOR,URINE Yellow (YELLOW); GLUCOSE, URINE (UA) Negative (NEGATIVE); KETONES,URINE Negative (NEGATIVE); LEUKOCYTE ESTERASE ,URINE Trace (NEGATIVE); NITRITE,URINE Negative (NEGATIVE); PH,URINE 6.5 (5-9); PROTEIN,URINE Negative (NEGATIVE); URINE, BLOOD Trace-lysed (NEGATIVE); UROBILINOGEN,URINE 0.2 (0.2)
[2020-09-09 21:41] LABS: BACTERIA,URINE 1+ (NOT PRESENT); URINE RBC, MICROSCOPIC 0-2 (0-2)
[2020-09-09] MEDS ORDERED: PHENERGAN 25 MG/ML VIAL ONE (21:43)
--- NOTE | 2020-09-09 21:57 | DI ---
EXAM: Portable chest HISTORY: Vomiting COMPARISON: Two-view chest 09/09/20 FINDINGS: The cardiomediastinal silhouette is stable. The lungs are clear bilaterally. There are n o acute osseous abnormalities IMPRESSION: No evidence of active pulmonary disease
--- NOTE | 2020-09-09 22:00 | CT ---
EXAM: CT of the abdomen pelvis without contrast History: Abdominal pain and bilateral flank pain. Comparison: CT abdomen pelvis 08/11/2019 Technique: Multiplanar CT images through the abdomen pelvis were obtained without the administration of IV contrast Findings: Lung bases are clear. No acute osseous abnormalities. No gallstones identified by CT. No liver or splenic lesions. No peripancreatic inflammation. Adren al glands are unremarkable. There is no left perinephric inflammation. No renal stones and no hydro nephrosis. No ureteral calculi. There is air within the bladder lumen. The appendix is not dilated or inflamed. No bowel obstruction. No bladder wall thickening. Uterus is not enlarged. No free a ir and no ascites. No pathologically enlarged lymph nodes. Atherosclerotic vascular calcifications. Impression: 1. Left perinephric inflammation is suspicious for pyelonephritis. A recently passed stone could a lso give this appearance. 2. Air within the bladder lumen. Differential diagnosis includes gas forming infection, recent cath eter placement or less likely fistula
[2020-09-09] MEDS ORDERED: TORADOL IVP STA (22:01)
[2020-09-09 22:05] LABS: ABG PH 7.46 (7.35-7.45)
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
[2020-09-09] MEDS ORDERED: VENTOLIN HFA (PER PUFF-WITH SPACER) IH PRN (22:24)
[2020-09-09] MEDS ORDERED: TORADOL IVP PRN (22:27)
[2020-09-09] MEDS ORDERED: ELAVIL PO SCH (22:30)
[2020-09-09] MEDS ORDERED: SODIUM CHLORIDE 1,000 ML IV SCH (22:30)
[2020-09-09] MEDS ORDERED: FLEXERIL PO PRN (22:30)
[2020-09-09] MEDS ORDERED: DILAUDID 1 MG/ML SYRINGE IVP PRN ×2 (23:13→23:14)
[2020-09-10] MEDS: ZOFRAN 4 MG/2 ML IVP PRN ×2 (01:34→09:24)
[2020-09-10 01:54] VITALS: BMI 34.3
[2020-09-10] MEDS ORDERED: PHENERGAN 25 MG/ML VIAL ONE ×2 (02:24→07:51)
[2020-09-10] MEDS: PHENERGAN 25 MG/ML VIAL 25 MG in SODIUM CHLORIDE 50 ML IV PRN ×2 (02:28→07:56)
[2020-09-10] MEDS: AZACTAM 1 GM in SODIUM CHLORIDE 50 ML IV SCH ×2 (02:47→06:24)
[2020-09-10] MEDS: CATAPRES PO SCH ×2 (02:48→10:43)
[2020-09-10] MEDS: CARDIZEM PO SCH ×2 (02:48→10:42)
[2020-09-10] MEDS: HYDROCHLOROTHIAZIDE PO SCH ×2 (02:49→10:44)
[2020-09-10] MEDS: COZAAR PO SCH ×2 (02:49→10:43)
[2020-09-10] MEDS: SYNTHROID PO SCH ×2 (02:50→06:24)
[2020-09-10 05:30] VITALS: BP 133/82; TEMP 98.2
[2020-09-10] MEDS ORDERED: AZACTAM ONE (05:50)
[2020-09-10 06:48] LABS: BASOPHILS % (AUTO) 0.2 % (0.0-3.0); EOSINOPHILS # (AUTO) 0.1 K/ul (0.0-0.7); EOSINOPHILS % (AUTO) 0.3 % (0.0-7.0); HEMOGLOBIN 13.1 g/dl (12.0-16.0); IMMATURE GRANULOCYTE # (AUTO) 0.1 (0.0-1.0); IMMATURE GRANULOCYTE % (AUTO) 0.7 % (0.0-5.0); LYMPHOCYTES # (AUTO) 1.4 K/uL (0.60-3.4); LYMPHOCYTES % (AUTO) 8.7 (10.0-50.0); MEAN CORPUSCULAR HEMOGLOBIN 29.7 pg (27.0-31.0); MEAN CORPUSCULAR HGB CONC 34.5 (31.8-35.4); MEAN CORPUSCULAR VOLUME 86.2 fl (81.0-99.0); MONOCYTES # (AUTO) 0.9 K/uL (0.4-2.0); MONOCYTES % (AUTO) 5.3 (0-10); NEUTROPHILS % (AUTO) 84.8 % (42.2-75.2); PLATELET COUNT 247 10^3/uL (140-440); RDW COEFFICIENT OF VARIATION 13.5 % (11.6-14.8); RED BLOOD COUNT 4.41 10^6/ul (4.20-5.40)
[2020-09-10 06:58] LABS: ALANINE AMINOTRANSFERASE 20.3 U/L (0-35); ALBUMIN 4.27 g/dL (3.5-5.0); ALKALINE PHOSPHATASE 80.5 U/L (38-126); ASPARTATE AMINO TRANSFERASE 25.4 U/L (14-36); BILIRUBIN,TOTAL 0.8 mg/dL (0.2-1.3); BLOOD UREA NITROGEN 12.5 mg/dL (7-17); CALCIUM 9.37 mg/dL (8.4-10.2); CARBON DIOXIDE 27.2 mmol/L (22-30.0); CHLORIDE 101.9 mmol/L (98-107); CREATININE 1.04 mg/dL (0.60-1.30); GLUCOSE 135.2 mg/dL (74-106); POTASSIUM 3.39 mmol/L (3.5-5.1); SODIUM 137.2 mmol/L (134.5-145); TOTAL PROTEIN 7.52 g/dL (6.3-8.2)
[2020-09-10] MEDS ORDERED: DILAUDID 0.5 MG/0.5 ML SYRINGE IVP PRN (07:04)
[2020-09-10] MEDS ORDERED: LOVENOX SUBCUT SCH (09:00)
[2020-09-10] MEDS ORDERED: LOPRESSOR PO SCH (09:00)
--- NOTE | 2020-09-10 09:33 | PCM ---
Chief Complaint Chief Complaint: im hurting and i cant keep anything down History of Present Illness History of Present Illness: This is 50 yr old lady presented to the er with temp 101, chils and left flank pain. her urine did confim pyuria and ct abd revealed findings suggestive of pyelonephritis. Review of Systems Constitutional: Reports Fever and Chills Eyes: Reports No symptoms Ears: Reports No symptoms Nose: Reports No symptoms Throat: Reports No symptoms Mouth: Reports No symptoms Respiratory: Reports No symptoms Cardiovascular: Reports No symptoms Gastrointestinal: Reports Nausea and Vomiting Genitourinary: Reports dysuria and flank pain Neurological: Reports No symptoms Musculoskeletal: Reports No symptoms Skin: Reports No symptoms Immunology: Reports No symptoms Hematology: Reports No symptoms Endocrine: Reports No symptoms Psychiatric: Reports No symptoms Habits: Denies Tobacco use, Substance use, Alcohol use and Other Allergies Allergies Allergy/AdvReac Type Severity Reaction Status Date / Time hydrocodone bitartrate AdvReac Intermediate Itching Verified 09/09/20 19:49 [From Lortab] codeine [Codeine] AdvReac Vomiting Verified 09/09/20 19:49 egg AdvReac Rash Verified 09/09/20 19:49 lanolin AdvReac Rash Verified 09/09/20 19:49 prednisone AdvReac Palpitation Verified 09/09/20 19:49 s onions Allergy Severe tongue Uncoded 09/09/20 19:49 itchy and numbness bottom lip peanuts Allergy Mild nausea Uncoded 09/09/20 19:49 tomatoes Allergy Mild Hawkins Uncoded 09/09/20 19:49 stomach acetaminophen AdvReac Intermediate Itching Uncoded 09/09/20 19:49 Steroids AdvReac Intermediate Palpitation Uncoded 09/09/20 19:49 s Tape AdvReac Mild Itching Uncoded 09/09/20 19:49 [facility] Medical History Asthma exacerbation Burn of leg, right, second degree Cough Exposure to COVID-19 virus Fever History of 2019 novel coronavirus disease (COVID-19) Hyperlipidemia Hyperlipidemia Hypertension Hypothyroidism Right ankle sprain Vision loss, right eye Wheezing Surgical History History of surgery History of tubal ligation Family History Mother Type 1 diabetes mellitus FATHER Hypertension Grandfather/Grandmother Type 1 diabetes mellitus Hypertension Social History Smoking and tobacco status: Former smoker Tobacco: How many years used: 10 Second hand smoke exposure: Yes Alcohol intake: current Substance use type: does not use Nohemi/mormon: Taoism Special nohemi needs: No Agree to transfusion: Yes Adopted: No Caregiver/support person: Yes Household members: spouse Housing: house Lives independently: Yes Highest education level completed: high school graduate Financial difficulty paying for basics: not applicable service: No Current occupational status: employed 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 Current occupational exposures/hazards: Yes Pets and animals: Yes Leisure activites: music and other History of recent travel: No Sexually active: Yes Do you think of yourself as: straight/heterosexual Current gender identity: female Seatbelt use: always Helmet use: No Drives intoxicated or rides with intoxicated funeral car driver: No Water heater temperature set < 120 degrees: Yes Working smoke detector in home: Yes Fire extinguisher in home: Yes Carbon monoxide detector in home: Yes Firearms in home: Yes Firearms unloaded and locked: Yes Medications Medications: Medications Generic Name Dose Route Start Last Admin Trade Name Freq PRN Reason Stop Dose Admin Albuterol Sulfate 1 - 2 puff 09/09/20 22:24 Albuterol Sulfate (Ventolin Hfa) 18 Gm 1 Puff With Spacer IH Q4-6H PRN Wheezing Amitriptyline HCl 25 mg 09/09/20 22:30 09/10/20 02:49 Amitriptyline Hcl 25 Mg Tablet PO Not Given BEDTIME GLENN Clonidine 0.1 mg 09/09/20 22:30 09/10/20 02:48 Clonidine Hcl 0.1 Mg Tablet PO Not Given TID GLENN Cyclobenzaprine HCl 10 mg 09/09/20 22:30 Cyclobenzaprine Hcl 10 Mg Tablet PO BID PRN MUSCLE SPASMS Diltiazem HCl 60 mg 09/09/20 22:30 09/10/20 02:48 Diltiazem Hcl 60 Mg Tablet PO Not Given BID GLENN Enoxaparin Sodium 40 mg 09/10/20 09:00 09/10/20 08:00 Enoxaparin Sodium 40 Mg/0.4 Ml Syr SUBCUT 40 mg DAILY GLENN Administration Hydrochlorothiazide 25 mg 09/09/20 22:30 09/10/20 02:49 Hydrochlorothiazide 25 Mg Tablet PO Not Given DAILY GLENN Hydromorphone HCl 0.5 mg 09/10/20 07:04 09/10/20 09:24 Hydromorphone 0.5 Mg/0.5 Ml Syringe IVP 0.5 mg Q4H PRN Administration MODERATE PAIN Sodium Chloride 1,000 mls @ 75 mls/hr 09/09/20 22:30 09/10/20 02:51 Sodium Chloride IV Not Given .[id number] GLENN Aztreonam 1 gm/ Sodium 50 mls @ 75 mls/hr 09/10/20 00:00 09/10/20 06:24 Chloride IV 09/13/20 00:00 75 mls/hr Q8HR GLENN Administration Promethazine HCl 25 mg/ Sodium 51 mls @ 75 mls/hr 09/09/20 22:29 09/10/20 07:56 Chloride IV 75 mls/hr Q6HR PRN Administration Nausea / Vomiting Ketorolac Tromethamine 30 mg 09/09/20 22:27 Ketorolac Tromethamine 30 Mg/Ml Vial IVP Q8HR PRN MODERATE PAIN Levothyroxine Sodium 100 mcg 09/09/20 22:30 09/10/20 06:24 Levothyroxine Sodium 100 Mcg Tablet PO 100 mcg QDAC [facility] Administration Losartan Potassium 100 mg 09/09/20 22:30 09/10/20 02:49 Losartan Potassium 100 Mg Tablet PO Not Given DAILY [facility] Metoprolol Tartrate 100 mg 09/10/20 09:00 Metoprolol Tartrate 50 Mg Tablet PO BID [facility] Ondansetron HCl 4 mg 09/09/20 22:21 09/10/20 09:24 Ondansetron Hcl/Pf 4 Mg/2 Ml Sdv IVP 4 mg Q6HR PRN Administration Nausea / Vomiting Sodium Chloride 1 syr 09/09/20 20:00 0.9% Sodium Chloride 10 Ml Disp.Syrin IVF PRN PRN To flush IV Body Composition Height: 5 ft 3 in Weight: 193 lb 12.581 oz Body Mass Index (BMI): 34.3 Vital Signs Temperature: 98.2 F Pulse Rate: 88 Respiratory Rate: 28 Blood Pressure: 133/82 O2 Sat by Pulse Oximetry: 99 Physical Examination Appearance: Reports Ill-appearing Ill-appearing: Mild Pain Distress: Moderate Eyes: Reports DELORES, EOMI and Conjunctiva clear ENT: Reports Ears normal Neck: Supple Respiratory: Reports Airway patent Cardiovascular: Reports RRR GI/: Reports Soft, Nontender, No masses and Bowel sounds normal Musculoskeletal: Reports Normal strength Skin: Reports Warm, Dry and Normal color Neurological: Reports Sensation intact Psychiatric: Reports Affect appropriate and Mood appropriate Lab/Tests/Diagnostic Imaging Lab/Tests/Diagnostic Imaging: Lab Review 09/09/20 09/09/20 09/09/20 20:00 20:14 20:14 WBC 19.24 H RBC 5.12 Hgb 15.2 Hct 43.6 MCV 85.2 MCH 29.7 MCHC 34.9 RDW Coeff of Lalo 13.6 Plt Count 317 Immature Gran % (Auto) 0.7 Neut % (Auto) 86.6 H Lymph % (Auto) 7.0 L Bollinger % (Auto) 4.5 Eos % (Auto) 0.9 Baso % (Auto) 0.3 Neut # (Auto) 16.7 H Lymph # (Auto) 1.4 Bollinger # (Auto) 0.9 Eos # (Auto) 0.2 Baso # (Auto) 0.1 Immature Gran # (Auto) 0.1 Puncture Site Rrad Base Excess -1.0 O2 Saturation 93.3 L ABG pH 7.46 H ABG pCO2 32.0 L ABG pO2 64.0 L ABG HCO3 22.8 ABG Total CO2 23.8 Pk Test + Hemoglobin 1.3 Oxyhemoglobin 92.0 L Carboxyhemoglobin 2.3 H Total Hemoglobin 14.2 FiO2 % 21.0 Sodium 136.8 Potassium 4.21 Chloride 97.4 L Carbon Dioxide 24.9 Anion Gap 18.71 BUN 10.8 Creatinine 0.89 Estimated GFR (MDRD) 67.00 BUN/Creatinine Ratio 12.13 Glucose 127.1 H Calcium 10.49 H Total Bilirubin 0.90 AST 34.0 ALT 27.4 Alkaline Phosphatase 98.8 Total Creatine Kinase 85.4 Troponin I < 0.012 Total Protein 8.70 H Albumin 4.96 Globulin 3.74 Albumin/Globulin Ratio 1.32 Amylase 56.9 Lipase 43.9 Serum , Qual Urine Color Urine Clarity Urine pH Ur Specific Paradox Urine Protein Urine Glucose (UA) Urine Ketones Urine Blood Urine Nitrite Urine Bilirubin Urine Urobilinogen Ur Leukocyte Esterase Urine Microscopic RBC Urine Microscopic WBC Ur Squamous Epith Cells Urine Bacteria Adenovirus (PCR) B. pertussis DNA (PCR) B.parapertussis DNA PCR C. pneumoniae DNA (PCR) Coronavirus OC43 (PCR) Coronavirus HKU1 (PCR) Coronavirus 229E (PCR) Coronavirus NL63 (PCR) Human Metapneumovir PCR Influenza Type A (PCR) Influenza B (RT-PCR) M. pneumoniae (PCR) Parainfluenza 1 (PCR) Parainfluenza 2 (PCR) Parainfluenza 3 (PCR) Parainfluenza 4 (PCR) RSV (PCR) Entero/Rhino (PCR) SARS-CoV-2 (PCR) 09/09/20 09/09/20 09/09/20 20:14 20:16 21:22 WBC RBC Hgb Hct MCV MCH MCHC RDW Coeff of Lalo Plt Count Immature Gran % (Auto) Neut % (Auto) Lymph % (Auto) Bollinger % (Auto) Eos % (Auto) Baso % (Auto) Neut # (Auto) Lymph # (Auto) Bollinger # (Auto) Eos # (Auto) Baso # (Auto) Immature Gran # (Auto) Puncture Site Base Excess O2 Saturation ABG pH ABG pCO2 ABG pO2 ABG HCO3 ABG Total CO2 Pk Test Hemoglobin Oxyhemoglobin Carboxyhemoglobin Total Hemoglobin FiO2 % Sodium Potassium Chloride Carbon Dioxide Anion Gap BUN Creatinine Estimated GFR (MDRD) BUN/Creatinine Ratio Glucose Calcium Total Bilirubin AST ALT Alkaline Phosphatase Total Creatine Kinase Troponin I Total Protein Albumin Globulin Albumin/Globulin Ratio Amylase Lipase Serum , Qual Negative Urine Color Yellow Urine Clarity Clear Urine pH 6.5 Ur Specific Paradox 1.015 Urine Protein Negative Urine Glucose (UA) Negative Urine Ketones Negative Urine Blood Trace-lysed Urine Nitrite Negative Urine Bilirubin Negative Urine Urobilinogen 0.2 Ur Leukocyte Esterase Trace H Urine Microscopic RBC 0-2 Urine Microscopic WBC 2-5 Ur Squamous Epith Cells 5-10 Urine Bacteria 1+ Adenovirus (PCR) Not detected B. pertussis DNA (PCR) Not detected B.parapertussis DNA PCR Not detected C. pneumoniae DNA (PCR) Not detected Coronavirus OC43 (PCR) Not detected Coronavirus HKU1 (PCR) Not detected Coronavirus 229E (PCR) Not detected Coronavirus NL63 (PCR) Not detected Human Metapneumovir PCR Not detected Influenza Type A (PCR) Not detected Influenza B (RT-PCR) Not detected M. pneumoniae (PCR) Not detected Parainfluenza 1 (PCR) Not detected Parainfluenza 2 (PCR) Not detected Parainfluenza 3 (PCR) Not detected Parainfluenza 4 (PCR) Not detected RSV (PCR) Not detected Entero/Rhino (PCR) Not detected SARS-CoV-2 (PCR) Detected H 09/10/20 09/10/20 06:41 06:41 WBC 16.50 H RBC 4.41 Hgb 13.1 Hct 38.0 MCV 86.2 MCH 29.7 MCHC 34.5 RDW Coeff of Lalo 13.5 Plt Count 247 Immature Gran % (Auto) 0.7 Neut % (Auto) 84.8 H Lymph % (Auto) 8.7 L Bollinger % (Auto) 5.3 Eos % (Auto) 0.3 Baso % (Auto) 0.2 Neut # (Auto) 14.0 H Lymph # (Auto) 1.4 Bollinger # (Auto) 0.9 Eos # (Auto) 0.1 Baso # (Auto) 0.0 Immature Gran # (Auto) 0.1 Puncture Site Base Excess O2 Saturation ABG pH ABG pCO2 ABG pO2 ABG HCO3 ABG Total CO2 Pk Test Hemoglobin Oxyhemoglobin Carboxyhemoglobin Total Hemoglobin FiO2 % Sodium 137.2 Potassium 3.39 L Chloride 101.9 Carbon Dioxide 27.2 Anion Gap 11.49 BUN 12.5 Creatinine 1.04 Estimated GFR (MDRD) 56.00 BUN/Creatinine Ratio 12.01 Glucose 135.2 H Calcium 9.37 Total Bilirubin 0.80 AST 25.4 ALT 20.3 Alkaline Phosphatase 80.5 Total Creatine Kinase Troponin I Total Protein 7.52 Albumin 4.27 Globulin 3.25 Albumin/Globulin Ratio 1.31 Amylase Lipase Serum , Qual Urine Color Urine Clarity Urine pH Ur Specific Paradox Urine Protein Urine Glucose (UA) Urine Ketones Urine Blood Urine Nitrite Urine Bilirubin Urine Urobilinogen Ur Leukocyte Esterase Urine Microscopic RBC Urine Microscopic WBC Ur Squamous Epith Cells Urine Bacteria Adenovirus (PCR) B. pertussis DNA (PCR) B.parapertussis DNA PCR C. pneumoniae DNA (PCR) Coronavirus OC43 (PCR) Coronavirus HKU1 (PCR) Coronavirus 229E (PCR) Coronavirus NL63 (PCR) Human Metapneumovir PCR Influenza Type A (PCR) Influenza B (RT-PCR) M. pneumoniae (PCR) Parainfluenza 1 (PCR) Parainfluenza 2 (PCR) Parainfluenza 3 (PCR) Parainfluenza 4 (PCR) RSV (PCR) Entero/Rhino (PCR) SARS-CoV-2 (PCR) Orders Category Date Time Status ADMIT PATIENT INPATIENT .TO [facility] (MONITORED BED) ADMISSION 09/09/20 22:20 Active ABG DRAW REQUEST Stat CARDIO 09/09/20 20:00 Completed EKG-(ED ONLY) Stat CARDIO 09/09/20 20:00 Completed METERED DOSE INHALATION Routine CARDIO 09/09/20 22:25 Completed GIVE HS SNACK 2100 CARE 09/09/20 22:22 Active INTAKE & OUTPUT Q8HR CARE 09/09/20 22:21 Active TELEMETRY MONITORING TELE CARE 09/09/20 22:20 Active VITAL SIGNS Q8HR CARE 09/09/20 22:21 Active CLEAR LIQUID DIET DIETARY 09/09/20 Breakfast Ordered HS SNACK DIETARY 09/09/20 Dinner Ordered ED CORPORATE REPRESENTATIVE APPLIED .ONCE EMERGENCY 09/09/20 20:00 Active ED IV/MEDIPORT/POWERPORT .ONCE EMERGENCY 09/09/20 20:00 Active ABG COOX Stat LAB 09/09/20 20:00 Completed AMYLASE Stat LAB 09/09/20 20:14 Completed CBC W/ AUTO DIFF DAILY@0600 LAB 09/10/20 06:41 Completed CBC W/ AUTO DIFF DAILY@0600 LAB 09/11/20 06:00 Ordered CBC W/ AUTO DIFF Stat LAB 09/09/20 20:14 Completed COMPREHENSIVE METABOLIC PANEL DAILY@0600 LAB 09/10/20 06:41 Completed COMPREHENSIVE METABOLIC PANEL DAILY@0600 LAB 09/11/20 06:00 Ordered COMPREHENSIVE METABOLIC PANEL Stat LAB 09/09/20 20:14 Completed CREATINE KINASE Stat LAB 09/09/20 20:14 Completed LIPASE Stat LAB 09/09/20 20:14 Completed RESPIRATORY PANEL 2.1 (PCR) Stat LAB 09/09/20 20:16 Completed SERUM Stat LAB 09/09/20 20:14 Completed TROPONIN I Stat LAB 09/09/20 20:14 Completed URINALYSIS C & S IF INDICATED Stat LAB 09/09/20 21:22 Completed URINE CULTURE Stat LAB 09/09/20 22:34 Uncollected 0.9 % Sodium Chloride [Saline Flush] MEDS 09/09/20 20:00 Active 1 syr IVF PRN PRN Albuterol Inhaler(with Spacer) [Ventolin Hfa (Per Puff- MEDS 09/09/20 22:24 Active with Spacer)] 1 - 2 puff IH Q4-6H PRN Amitriptyline HCl [Elavil] MEDS 09/09/20 22:30 Active 25 mg PO BEDTIME Aztreonam [Azactam] MEDS 09/10/20 05:50 Discontinued 1 gm .ROUTE .STK-MED ONE Aztreonam [Azactam] 1 gm MEDS 09/10/20 00:00 Active 0.9 % Sodium Chloride [Sodium Chloride] 50 ml IV Q8HR Ceftriaxone/D5w 1 gm Premix [Rocephin 1 gm/50 ml D5w] MEDS 09/09/20 20:00 Discontinued 1 gm in 50 ml IV ONCE Clonidine HCl [Catapres] MEDS 09/09/20 22:30 Active 0.1 mg PO TID Cyclobenzaprine HCl [Flexeril] MEDS 09/09/20 22:30 Active 10 mg PO BID PRN Diltiazem HCl [Cardizem] MEDS 09/09/20 22:30 Active 60 mg PO BID Enoxaparin Sodium [Lovenox] MEDS 09/10/20 09:00 Active 40 mg SUBCUT DAILY Hydrochlorothiazide MEDS 09/09/20 22:30 Active 25 mg PO DAILY Hydromorphone HCl [Dilaudid 0.5 mg/0.5 ml Syringe] MEDS 09/10/20 07:04 Active 0.5 mg IVP Q4H PRN Hydromorphone HCl [Dilaudid 1 mg/ml Syringe] MEDS 09/09/20 23:14 Discontinued 0.5 mg IVP Q4HR PRN Hydromorphone HCl [Dilaudid 1 mg/ml Syringe] MEDS 09/09/20 23:13 Discontinued 1 mg IVP Q4HR PRN Ketorolac Tromethamine [Toradol] MEDS 09/09/20 22:01 Discontinued 30 mg IVP ONCE STA Ketorolac Tromethamine [Toradol] MEDS 09/09/20 22:27 Active 30 mg IVP Q8HR PRN Levothyroxine Sodium [Synthroid] MEDS 09/09/20 22:30 Active 100 mcg PO QDAC Losartan Potassium [Cozaar] MEDS 09/09/20 22:30 Active 100 mg PO DAILY Metoprolol Tartrate [Lopressor] MEDS 09/10/20 09:00 Active 100 mg PO BID Ondansetron HCl/Pf [Zofran 4 mg/2 ml] MEDS 09/09/20 20:00 Discontinued 4 mg IVP ONCE STA Ondansetron HCl/Pf [Zofran 4 mg/2 ml] MEDS 09/09/20 22:21 Active 4 mg IVP Q6HR PRN Promethazine HCl [Phenergan 25 mg/ml Vial] MEDS 09/09/20 21:43 Discontinued 25 mg .ROUTE .STK-MED ONE Promethazine HCl [Phenergan 25 mg/ml Vial] MEDS 09/10/20 02:24 Discontinued 25 mg .ROUTE .STK-MED ONE Promethazine HCl [Phenergan 25 mg/ml Vial] MEDS 09/10/20 07:51 Discontinued 25 mg .ROUTE .STK-MED ONE Promethazine HCl [Phenergan 25 mg/ml Vial] 12.5 mg MEDS 09/09/20 21:30 Discontinued 0.9 % Sodium Chloride [Sodium Chloride] 50 ml IV ONCE Promethazine HCl [Phenergan 25 mg/ml Vial] 25 mg MEDS 09/09/20 22:29 Active 0.9 % Sodium Chloride [Sodium Chloride] 50 ml IV Q6HR Sodium Chloride 0.9% [Sodium Chloride] 1,000 ml MEDS 09/09/20 20:00 Discontinued IV 100 mls/hr Sodium Chloride 0.9% [Sodium Chloride] 1,000 ml MEDS 09/09/20 22:30 Active IV 75 mls/hr Sodium Chloride 0.9% [Sodium Chloride] 1,000 ml MEDS 09/09/20 20:00 Discontinued IV BOLUS RESUSCITATION STATUS Routine OTHERS 09/09/20 22:21 Ordered CHEST, 1V AP ONLY Stat RADS 09/09/20 20:[address] ABD/PEL WO RENAL STONE PROT Stat RADS 09/09/20 20:00 Completed Medications Generic Name Dose Route Start Last Admin Trade Name Freq PRN Reason Stop Dose Admin Albuterol Sulfate 1 - 2 puff 09/09/20 22:24 Albuterol Sulfate (Ventolin Hfa) 18 Gm 1 Puff With Spacer IH Q4-6H PRN Wheezing Amitriptyline HCl 25 mg 09/09/20 22:30 09/10/20 02:49 Amitriptyline Hcl 25 Mg Tablet PO Not Given BEDTIME GLENN Clonidine 0.1 mg 09/09/20 22:30 09/10/20 02:48 Clonidine Hcl 0.1 Mg Tablet PO Not Given TID GLENN Cyclobenzaprine HCl 10 mg 09/09/20 22:30 Cyclobenzaprine Hcl 10 Mg Tablet PO BID PRN MUSCLE SPASMS Diltiazem HCl 60 mg 09/09/20 22:30 09/10/20 02:48 Diltiazem Hcl 60 Mg Tablet PO Not Given BID GLENN Enoxaparin Sodium 40 mg 09/10/20 09:00 09/10/20 08:00 Enoxaparin Sodium 40 Mg/0.4 Ml Syr SUBCUT 40 mg DAILY GLENN Administration Hydrochlorothiazide 25 mg 09/09/20 22:30 09/10/20 02:49 Hydrochlorothiazide 25 Mg Tablet PO Not Given DAILY GLENN Hydromorphone HCl 0.5 mg 09/10/20 07:04 09/10/20 09:24 Hydromorphone 0.5 Mg/0.5 Ml Syringe IVP 0.5 mg Q4H PRN Administration MODERATE PAIN Sodium Chloride 1,000 mls @ 75 mls/hr 09/09/20 22:30 09/10/20 02:51 Sodium Chloride IV Not Given .[id number] GLENN Aztreonam 1 gm/ Sodium 50 mls @ 75 mls/hr 09/10/20 00:00 09/10/20 06:24 Chloride IV 09/13/20 00:00 75 mls/hr Q8HR GLENN Administration Promethazine HCl 25 mg/ Sodium 51 mls @ 75 mls/hr 09/09/20 22:29 09/10/20 07:56 Chloride IV 75 mls/hr Q6HR PRN Administration Nausea / Vomiting Ketorolac Tromethamine 30 mg 09/09/20 22:27 Ketorolac Tromethamine 30 Mg/Ml Vial IVP Q8HR PRN MODERATE PAIN Levothyroxine Sodium 100 mcg 09/09/20 22:30 09/10/20 06:24 Levothyroxine Sodium 100 Mcg Tablet PO 100 mcg QDAC GLENN Administration Losartan Potassium 100 mg 09/09/20 22:30 09/10/20 02:49 Losartan Potassium 100 Mg Tablet PO Not Given DAILY GLENN Metoprolol Tartrate 100 mg 09/10/20 09:00 Metoprolol Tartrate 50 Mg Tablet PO BID GLENN Ondansetron HCl 4 mg 09/09/20 22:21 09/10/20 09:24 Ondansetron Hcl/Pf 4 Mg/2 Ml Sdv IVP 4 mg Q6HR PRN Administration Nausea / Vomiting Sodium Chloride 1 syr 09/09/20 20:00 0.9% Sodium Chloride 10 Ml Disp.Syrin IVF PRN PRN To flush IV Discontinued Medications Generic Name Dose Route Start Last Admin Trade Name Freq PRN Reason Stop Dose Admin Hydromorphone HCl 1 mg 09/09/20 23:13 Hydromorphone Hcl 1 Mg/Ml Syringe IVP Q4HR PRN MODERATE PAIN Hydromorphone HCl 0.5 mg 09/09/20 23:14 09/10/20 02:13 Hydromorphone Hcl 1 Mg/Ml Syringe IVP 0.5 mg Q4HR PRN Administration MODERATE PAIN Sodium Chloride 1,000 mls @ 1,000 mls/hr 09/09/20 20:00 09/09/20 20:32 Sodium Chloride IV 09/09/20 20:59 1,000 mls/hr BOLUS STA Administration Sodium Chloride 1,000 mls @ 100 mls/hr 09/09/20 20:00 09/09/20 22:03 Sodium Chloride IV 09/10/20 05:59 100 mls/hr .Q10H STA Administration CEFTRIAXONE/D5W 1 GM PREMIX 1 gm in 50 mls @ 75 mls/hr 09/09/20 20:00 09/09/20 20:35 Rocephin 1 Gm/50 Ml D5w IV 09/09/20 20:39 75 mls/hr ONCE STA Administration Promethazine HCl 12.5 mg/ 50.5 mls @ 75 mls/hr 09/09/20 21:30 09/09/20 21:50 Sodium Chloride IV 09/09/20 22:10 75 mls/hr ONCE STA Administration Ketorolac Tromethamine 30 mg 09/09/20 22:01 09/09/20 22:20 Ketorolac Tromethamine 30 Mg/Ml Vial IVP 09/09/20 22:02 30 mg ONCE STA Administration Ondansetron HCl 4 mg 09/09/20 20:00 09/09/20 20:33 Ondansetron Hcl/Pf 4 Mg/2 Ml Sdv IVP 09/09/20 20:01 4 mg ONCE STA Administration Assessment (1) Pyelonephritis: Status: Acute Code(s): N12 - Tubulo-interstitial nephritis, not specified as acute or chronic SNOMED Code(s): 77128469 Plan Plan: iv antbx, pain control, awaiting urine culture results
--- NOTE | 2020-12-19 11:20 | SSS ---
ASSESSMENT: 1. Pyelonephritis, acute. 2. Tubulo-interstitial nephritis, not specified as acute or chronic. HISTORY OF PRESENT ILLNESS: This is a 50-year-old lady who presented to the ER with temp of 101, chills and left flank pain. Her urine did not confirm pyuria and CT of the abdomen revealed findings suggestive of pyelonephritis. DISCUSSION: This is a very pleasant 50-year-old lady, who presented to the Emergency Department for flank pain, back pain and vomiting. She presented complaining that she felt that she had a urinary tract infection and was concerned that she had a "kidney infection" because of the back pain. She had two days of fever, chills and flank pain with painful urination. She was seen in the Emergency Department. She was found to have significant leukocytosis with bacteria in the urine. A CT scan performed in the Emergency Department did reveal evidence of perinephric inflammation. Therefore, she was admitted to the hospital for evaluation and treatment. Please see the History and Physical that was performed on 09/09/20. PAST MEDICAL HISTORY: MEDICATIONS: Albuterol Sulfate (Ventolin HFA) 18 gm one to two puff with spacer q.4-6h p.r.n. Amitriptyline 25 mg p.o. bedtime GLENN Clonidine 0.1 mg p.o. t.i.d. GLENN Cyclobenzaprine 10 mg p.o. b.i.d. p.r.n. Diltiazem 60 mg p.o. b.i.d. GLENN Enoxaparin 40 mg subcut daily GLENN Hydrochlorothiazide 25 mg p.o. daily GLENN Hydromorphone 0.5 mg IVP q.4h p.r.n. Sodium Chloride 1,000 mls @ 75 mls/hr IV q.13H20M GLENN Aztreonam 50 mls @ 75 mls/hr IV q.8hr GLENN Promethazine 51 mls @ 65 mls/hr IV q.6hr p.r.n. Ketorolac 30 mg IVP q.8hr p.r.n. Levothyroxine 100 mcg p.o. qd a.c. GLENN Losartan 100 mg p.o. daily GLENN Metoprolol 100 mg p.o. b.i.d. GLENN Ondansetron 4 mg IVP q.6hr p.r.n. Sodium Chloride 1 syr IVF p.r.n. to flush ALLERGIES: HYDROCODONE, CODEINE, LANOLIN, PREDNISONE, EGG, STEROIDS, TAPE, ACETAMINOPHEN, ONIONS, PEANUTS, TOMATOES PAST MEDICAL HISTORY: Asthma exacerbation Burn of leg, right, second degree Cough Exposure to Covid-19 virus Fever History of 2019 novel coronavirus (Covid-19) Hyperlipidemia Hypertension Hypothyroidism Right ankle spray Vision loss, right eye Wheezing PAST SURGICAL HISTORY: History of tubal ligation REVIEW OF SYSTEMS: No headaches, visual changes, tinnitus, chest pain, shortness of breath, hemoptysis, abdominal pain, blood in the stool. Reports dysuria and flank pain. No seizures. FAMILY HISTORY: Mother - Type 1 diabetes mellitus. Father - Hypertension. Grandfather/Grandmother - Type 1 diabetes mellitus, hypertension. 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 [employer] Current occupational exposures/hazards: Yes Pets and animals: Yes Leisure activities: music and other History of recent travel: No Sexually active: Yes Do you think of yourself as: straight/heterosexual Current gender identity: female Seatbelt use: always Helmet use: No Drives intoxicated or rides with intoxicated driver/refuse collector: No Water heater temperature set < 120 degrees: Yes Working smoke detector in home: Yes Fire extinguisher in home: Yes Carbon monoxide detector in home: Yes Firearms in home: Yes Firearms unloaded and locked: Yes PHYSICAL EXAMINATION: Vital Signs: Temperature 98.2, pulse 88, respiratory rate 28, BP 133/82, 02 sat by pulse oximetry 99. Height 5'3", weight 193 lbs, 12.581 oz. GENERAL: Appearance is ill-appearing. HEENT: Pupils are round. Conjunctivae clear. Ears are normal. NECK: Supple. CHEST: Clear. Airway patent. CARDIOVASCULAR: Regular rate and rhythm. ABDOMEN: Soft, nontender. No masses. Bowel sounds normal. MUSCULOSKELETAL: Reports normal strength. SKIN: Reports warm, dry and normal color. NEUROLOGIC: Reports normal sensation, intact. PSYCHIATRIC: Reports affect appropriate and mood appropriate. CLINICAL COURSE: She was started on broad-spectrum antibiotics. She did defervesce. Her repeat white count had dropped to 16,000, her pain had improved. Her urine culture was noted to be positive for E. coli. At this point, the patient was feeling better and she was discharged with antibiotics and analgesics. She will followup with the clinic for recheck of the urine. CONDITION: Good. BLU
== END 2020-09-10 10:45 | disposition short-term general hospital (02) | DRG 690 ==
LOC: ED 19:36 → MEDSURG A 23:11
PROVIDERS: ADMIT Family Medicine; ATTEND Family Medicine

== ENCOUNTER 2021-07-28 06:28 | Inpatient (IN) ==
[2021-07-28] MEDS ORDERED: SODIUM CHLORIDE 1,000 ML IV STA (06:46)
[2021-07-28] MEDS ORDERED: ZOFRAN 4 MG/2 ML IVP ONE ×2 (06:46→12:17)
[2021-07-28] MEDS ORDERED: MORPHINE 4 MG/ML SYRINGE IVP ONE (06:46)
--- NOTE | 2021-07-28 06:46 | ED.PDOC ---
General ED Provider: Dr. SALMA MORENO Chief Complaint: Abdominal Pain Stated Complaint: Abdominal pain and vomiting since 2 am (4 hours ago),woke her up, no bloody emesis, some diarrhea yesterday (not bloody). No hx of GI problems. Her had food poisoning about 2 weeks ago. She has not been on abx recently. Only prior abd. surgery was a BTL. Time Seen by Provider: 07/28/21 06:45 Mode of Arrival: Walk-In Information Source: Patient Exam Limitations: No limitations Primary Care Provider: MARAH GRAY Nursing and Triage Documentation Reviewed and Agree: Yes Does patient meet sepsis criteria?: No System Inflammatory Response Syndrome: Not Applicable Sepsis Protocol: For patient's 13 years and over: Temp is 96.8 and below OR 101 and greater Pulse >90 BPM Resp >20/minute Acutely Altered Mental Status Are patient's symptoms suggestive of a new infection, such as: -Pneumonia -Skin, Soft Tissue -Endocarditis -UTI -Bone, Joint Infection -Implantable Device -Acute Abdominal Infection -Wound Infection -Meningitis -Blood Stream Catheter Infection -Unknown GI Complaint Exam Abdominal Pain Complaint/Exam Onset: Gradual Duration: 4 hours Symptoms Are: Still present Timing: Constant Initial Severity: Moderate Current Severity: Moderate Location of Pain: Diffuse Character: Reports Aching and Cramping Aggravating: Reports Food Alleviating: Reports None Associated Signs and Symptoms: Reports Decreased appetite, Nausea, Vomiting and Diarrhea Related History: Reports Similar episode (No) AAA Risk Factors: Reports Hypertension Cardiac Risk Factors: Reports Hypertension Ovarian Torsion Risk Factors: Reports Tubal ligation Surgical Obstruction Risk Factors: Reports Colicky abdominal pain Related Surgical History: Reports Tubal ligation Abdominal Findings: Present Other (generalized cramping) Differential Diagnoses: Appendicitis, Bowel Obstruction, Diverticulitis, Gastroenteritis, Ureteral Stone and UTI Review of Systems Review Of Systems Constitutional: Reports No symptoms Eyes: Reports No symptoms Ears, Nose, Mouth, Throat: Reports No symptoms Respiratory: Reports No symptoms Cardiac: Reports No symptoms GI: Reports Abdominal pain, Diarrhea, Nausea, Poor appetite, Poor fluid intake and Vomiting : Reports No symptoms Musculoskeletal: Reports No symptoms Skin: Reports No symptoms Neurological: Reports No symptoms Endocrine: Reports No symptoms Hematologic/Lymphatic: Reports No symptoms All Other Systems: Reviewed and Negative [facility] Medical History (Updated 07/28/21 @ 13:38 by CLAUDETTE FUENTES, RN) Abnormal mammogram Angina Asthma Chronic obstructive lung disease Coronary arteriosclerosis Cyst of breast Deep vein thrombosis (DVT) of axillary vein of right upper extremity Fat necrosis of right breast Glaucoma History of COVID-19 Hyperlipidemia Hypertension Hypothyroidism Impaired vision in both eyes Impairment of balance Insomnia Recurrent falls Sleep apnea Weakness of left leg Family History (Updated 07/28/21 @ 13:32 by HENNA BELLE, RN) Mother Type 1 diabetes mellitus FATHER Hypertension Grandfather/Grandmother Type 1 diabetes mellitus Hypertension COUSIN Glaucoma Social History Smoking and tobacco status: Former smoker Tobacco: How many years used: 10 Second hand smoke exposure: Yes Alcohol intake: current Substance use type: does not use Nohemi/judaism: Moravian Special nohemi needs: No Agree to transfusion: Yes Adopted: No Caregiver/support person: Yes Household members: spouse Housing: house Lives independently: Yes Highest education level completed: high school graduate Financial difficulty paying for basics: not applicable service: No Current occupational status: employed 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 Current occupational exposures/hazards: Yes Pets and animals: Yes Leisure activites: music and other History of recent travel: No Sexually active: Yes Do you think of yourself as: straight/heterosexual Current gender identity: female Seatbelt use: always Helmet use: No Drives intoxicated or rides with intoxicated driver sales: No Water heater temperature set < 120 degrees: Yes Working smoke detector in home: Yes Fire extinguisher in home: Yes Carbon monoxide detector in home: Yes Firearms in home: Yes Firearms unloaded and locked: Yes Surgical History (Updated 07/28/21 @ 13:34 by CLAUDETTE FUENTES, RN) History of eye surgery History of tubal ligation Female Reproductive History Menstrual Hx Hysterectomy: No Hx Tubal Ligation: Yes Physical Exam Physical Exam Appearance: Reports Ill-appearing Ill-appearing: Moderate Pain Distress: Moderate Eyes: Reports DELORES ENT: Reports Oropharynx normal Neck: Supple Respiratory: Reports Airway patent and Breath sounds clear Cardiovascular: Reports RRR and Pulses normal GI/: Reports Soft, Tender (generalized) and Bowel sounds hyperactive Musculoskeletal: Reports Normal strength and ROM intact Skin: Reports Warm and Dry Neurological: Reports Sensation intact, Motor intact and Alert Psychiatric: Reports Affect appropriate and Mood appropriate Interpretation Radiology Interpretation Radiology Interpretation By: Radiologist Radiology Results: Positive Exam Interpreted: CT Scan Xray Comments: abd/pel - colitis Radiology Interpretation By: Radiologist Radiology Results: Negative Exam Interpreted: CXR Critical Care Note Critical Care Note Total Critical Care Time (mins): 0 Course Course Hematology/Chemistry: 07/28/21 07:40 07/28/21 07:40 Orders, Labs, Meds: Lab Review 07/28/21 07/28/21 07/28/21 07:40 07:40 11:03 WBC 24.69 H RBC 5.73 H Hgb 17.1 H Hct 50.4 H MCV 88.0 MCH 29.8 MCHC 33.9 RDW Coeff of Lalo 14.1 Plt Count 295 Immature Gran % (Auto) 0.5 Neut % (Auto) 90.2 H Lymph % (Auto) 6.4 L Whitfield % (Auto) 2.1 Eos % (Auto) 0.5 Baso % (Auto) 0.3 Neut # (Auto) 22.3 H Lymph # (Auto) 1.6 Whitfield # (Auto) 0.5 Eos # (Auto) 0.1 Baso # (Auto) 0.1 Immature Gran # (Auto) 0.1 Sodium 141.5 Potassium 4.52 Chloride 99.5 Carbon Dioxide 24.5 Anion Gap 22.02 BUN 24.2 H Creatinine 1.05 Estimated GFR (MDRD) 55.00 BUN/Creatinine Ratio 23.04 Glucose 157.0 H Calcium 12.16 H Total Bilirubin 1.00 AST 51.6 H ALT 35.6 H Alkaline Phosphatase 300.0 H Total Protein 9.21 H Albumin 5.09 H Globulin 4.12 Albumin/Globulin Ratio 1.23 Amylase 138.1 H Lipase 127.4 Adenovirus (PCR) Not detected B. pertussis DNA (PCR) Not detected B.parapertussis DNA PCR Not detected C. pneumoniae DNA (PCR) Not detected Coronavirus OC43 (PCR) Not detected Coronavirus HKU1 (PCR) Not detected Coronavirus 229E (PCR) Not detected Coronavirus NL63 (PCR) Not detected Human Metapneumovir PCR Not detected Influenza Type A (PCR) Not detected Influenza B (RT-PCR) Not detected M. pneumoniae (PCR) Not detected Parainfluenza 1 (PCR) Not detected Parainfluenza 2 (PCR) Not detected Parainfluenza 3 (PCR) Not detected Parainfluenza 4 (PCR) Not detected RSV (PCR) Not detected Entero/Rhino (PCR) Not detected SARS-CoV-2 (PCR) Not detected Orders Category Date Time Status ADMIT PATIENT INPATIENT .TO MEDSURG (NON-MONITORED ADMISSION 07/28/21 12:15 Active BED) EKG-(ED ONLY) Stat CARDIO 07/28/21 07:21 Completed EKG-(ED ONLY) Stat CARDIO 07/28/21 10:09 Completed ACTIVITY .Up ad Lisa CARE 07/28/21 12:17 Active INTAKE & OUTPUT Q8HR CARE 07/28/21 12:17 Active IP: INSERT SALINE LOCK ONCE CARE 07/28/21 12:17 Active NPO REMINDER: IMAGING ONCE CARE 07/28/21 08:10 Completed VITAL SIGNS Q8HR CARE 07/28/21 12:17 Active REGULAR DIET DIETARY 07/28/21 Lunch Ordered AMYLASE Stat LAB 07/28/21 07:40 Completed BASIC METABOLIC PANEL DAILY@0600 LAB 07/29/21 06:00 Ordered BASIC METABOLIC PANEL DAILY@0600 LAB 07/30/21 06:00 Ordered CBC W/ AUTO DIFF DAILY@0600 LAB 07/29/21 06:00 Ordered CBC W/ AUTO DIFF DAILY@0600 LAB 07/30/21 06:00 Ordered CBC W/ AUTO DIFF Stat LAB 07/28/21 07:40 Completed COMPREHENSIVE METABOLIC PANEL Stat LAB 07/28/21 07:40 Completed LIPASE Stat LAB 07/28/21 07:40 Completed RESPIRATORY PANEL 2.1 (PCR) Stat LAB 07/28/21 11:03 Completed URINALYSIS C & S IF INDICATED Stat LAB 07/28/21 06:46 Uncollected Ciprofloxacin/D5w [Cipro 400 mg/200 ml D5w] MEDS 07/28/21 09:11 Discontinued 400 mg in 200 ml IV ONCE Ciprofloxacin/D5w [Cipro 400 mg/200 ml D5w] MEDS 07/28/21 21:00 Active 400 mg in 200 ml IV Q12HR Enoxaparin Sodium [Lovenox] MEDS 07/29/21 09:00 Active 40 mg SUBCUT DAILY Metronidazole/Sodium Chloride [Flagyl 500 mg/100 ml] MEDS 07/28/21 09:11 Discontinued 500 mg in 100 ml IV ONCE Metronidazole/Sodium Chloride [Flagyl 500 mg/100 ml] MEDS 07/28/21 13:00 Active 500 mg in 100 ml IV Q8HR Morphine Sulfate [Morphine 4 mg/ml Syringe] MEDS 07/28/21 06:46 Discontinued 4 mg IVP ONCE ONE Ondansetron HCl/Pf [Zofran 4 mg/2 ml] MEDS 07/28/21 06:46 Discontinued 4 mg IVP ONCE ONE Ondansetron HCl/Pf [Zofran 4 mg/2 ml] MEDS 07/28/21 12:17 Discontinued 4 mg IVP ONCE ONE Sodium Chloride 0.9% [Sodium Chloride] 1,000 ml MEDS 07/28/21 06:46 Active IV 125 mls/hr Sodium Chloride 0.9% [Sodium Chloride] 1,000 ml MEDS 07/28/21 12:30 Active IV 75 mls/hr RESUSCITATION STATUS Routine OTHERS 07/28/21 12:17 Ordered CHEST, 1V AP ONLY Stat RADS 07/28/21 08:[address] ABDOMEN/PELVIS WO CONTRAST Stat RADS 07/28/21 08:12 Completed Medications Generic Name Dose Route Start Last Admin Trade Name Freq PRN Reason Stop Dose Admin Enoxaparin Sodium 40 mg 07/29/21 09:00 Enoxaparin Sodium 40 Mg/0.4 Ml Syr SUBCUT DAILY GLENN Sodium Chloride 1,000 mls @ 125 mls/hr 07/28/21 06:46 07/28/21 07:15 Sodium Chloride IV 07/28/21 14:45 125 mls/hr .Q8H STA Administration Sodium Chloride 1,000 mls @ 75 mls/hr 07/28/21 12:30 07/28/21 12:28 Sodium Chloride IV 75 mls/hr .[id number] GLENN Administration Metronidazole 500 mg in 100 mls @ 100 mls/hr 07/28/21 13:00 07/28/21 12:25 Flagyl 500 Mg/100 Ml IV 07/31/21 12:59 Not Given Q8HR GLENN Ciprofloxacin/Dextrose 400 mg in 200 mls @ 200 mls/hr 07/28/21 21:00 Cipro 400 Mg/200 Ml D5w IV 07/31/21 20:59 Q12HR GLENN Discontinued Medications Generic Name Dose Route Start Last Admin Trade Name Freq PRN Reason Stop Dose Admin Metronidazole 500 mg in 100 mls @ 100 mls/hr 07/28/21 09:11 07/28/21 10:52 Flagyl 500 Mg/100 Ml IV 07/28/21 10:10 100 mls/hr ONCE ONE Administration Ciprofloxacin/Dextrose 400 mg in 200 mls @ 200 mls/hr 07/28/21 09:11 07/28/21 12:04 Cipro 400 Mg/200 Ml D5w IV 07/28/21 10:10 200 mls/hr ONCE ONE Administration Morphine Sulfate 4 mg 07/28/21 06:46 07/28/21 07:15 Morphine Sulfate 4 Mg/Ml Syringe IVP 07/28/21 06:47 4 mg ONCE ONE Administration Ondansetron HCl 4 mg 07/28/21 06:46 07/28/21 07:15 Ondansetron Hcl/Pf 4 Mg/2 Ml Sdv IVP 07/28/21 06:47 4 mg ONCE ONE Administration Ondansetron HCl 4 mg 07/28/21 12:17 07/28/21 12:30 Ondansetron Hcl/Pf 4 Mg/2 Ml Sdv IVP 07/28/21 12:18 Not Given ONCE ONE Vital Signs: Temp Pulse Resp BP Pulse Ox 07/28/21 06:29 98.0 F 104 H 28 H 139/103 H 97 Discharge Plan Discharge Patient Disposition: ADMITTED INPATIENT Discharge Problem: Colitis ED Provider: SALMA MORENO Condition: Stable Physician Progress Note: [Colitis, admit for IV abx and monitoring.]
[2021-07-28 07:46] LABS: BASOPHILS # (AUTO) 0.1 K/uL (0-0.2); BASOPHILS % (AUTO) 0.3 % (0.0-3.0); EOSINOPHILS # (AUTO) 0.1 K/ul (0.0-0.7); EOSINOPHILS % (AUTO) 0.5 % (0.0-7.0); HEMATOCRIT 50.4 % (37.0-47.0); HEMOGLOBIN 17.1 g/dl (12.0-16.0); IMMATURE GRANULOCYTE # (AUTO) 0.1 (0.0-1.0); IMMATURE GRANULOCYTE % (AUTO) 0.5 % (0.0-5.0); LYMPHOCYTES # (AUTO) 1.6 K/uL (0.60-3.4); LYMPHOCYTES % (AUTO) 6.4 (10.0-50.0); MEAN CORPUSCULAR HEMOGLOBIN 29.8 pg (27.0-31.0); MEAN CORPUSCULAR HGB CONC 33.9 (31.8-35.4); MONOCYTES # (AUTO) 0.5 K/uL (0.4-2.0); MONOCYTES % (AUTO) 2.1 (0-10); NEUTROPHILS # (AUTO) 22.3 K/ul (2.0-6.9); NEUTROPHILS % (AUTO) 90.2 % (42.2-75.2); PLATELET COUNT 295 10^3/uL (140-440); RDW COEFFICIENT OF VARIATION 14.1 % (11.6-14.8); RED BLOOD COUNT 5.73 10^6/ul (4.20-5.40)
[2021-07-28 07:57] LABS: ALANINE AMINOTRANSFERASE 35.6 U/L (0-35); ALBUMIN 5.09 g/dL (3.5-5.0); AMYLASE 138.1 U/L (30-110); ASPARTATE AMINO TRANSFERASE 51.6 U/L (14-36); BLOOD UREA NITROGEN 24.2 mg/dL (7-17); CALCIUM 12.16 mg/dL (8.4-10.2); CARBON DIOXIDE 24.5 mmol/L (22-30.0); CHLORIDE 99.5 mmol/L (98-107); CREATININE 1.05 mg/dL (0.60-1.30); LIPASE 127.4 U/L (23-300); POTASSIUM 4.52 mmol/L (3.5-5.1); SODIUM 141.5 mmol/L (134.5-145); TOTAL PROTEIN 9.21 g/dL (6.3-8.2)
[2021-07-28 08:16] LABS: WHITE BLOOD COUNT 24.69 K/ul (4.6-10.2)
--- NOTE | 2021-07-28 08:54 | DI ---
EXAM: CHEST FRONTAL VIEW HISTORY: Upper abdominal pain COMPARISON: 09/09/2020 FINDINGS: Heart size and mediastinum remain within normal limits. Lungs are free of infiltrate. No consolidation or pleural fluid. There is no pneumothorax or acute bony finding. IMPRESSION: No acute cardiopulmonary process.
--- NOTE | 2021-07-28 09:03 | CT ---
EXAM: CT Abdomen without contrast. CT Pelvis without contrast. HISTORY: Generalized abdominal pain. COMPARISON: 08/11/2019, 08/26/2017. TECHNIQUE: Multiple axial images of the abdomen and pelvis were obtained without intravenous contras t. Images were reformatted in the sagittal and coronal plane. FINDINGS: Please note that evaluation of the abdominal and pelvic structures is limited due to lack of intravenous contrast. Fat necrosis of the right breast. Small nodules in the lung bases appear similar to prior imaging. Degenerative changes in the spine. No acute osseous abnormality. Liver mildly enlarged. Gallbladder, pancreas, spleen, adrenal glands, and kidneys are normal. There is moderate wall thickening of the colon beginning near the hepatic flexure extending to the de scending colon. No pneumatosis. No bowel obstruction. Mild adjacent edema. Diverticulosis noted. Appendix normal. Small bowel unremarkable. Uterus demonstrates normal contour. Bladder collapsed. Phleboliths in the pelvis. No free fluid or free air. Atherosclerotic calcifications present without aneurysm. IMPRESSION: 1. Moderate colitis involving the transverse and descending colon. 2. Diverticulosis. 3. Mild hepatomegaly. All CT scans are performed using dose optimization techniques as appropriate to the performed exam an d include at least one of the following: Automated exposure control, adjustment of the mA and/or kV according t o size, and the use of iterative reconstruction technique.
[2021-07-28] MEDS ORDERED: FLAGYL 500 MG/100 ML 500 MG/100 ML BAG IV ONE (09:11)
[2021-07-28] MEDS ORDERED: CIPRO 400 MG/200 ML D5W 400 MG/200 ML BAG IV ONE (09:11)
[2021-07-28 11:10] LABS: BORDETELLA PARAPERTUSSIS (PCR) NOT DETECTED (NOT DETECT); BORDETELLA PERTUSSIS (PCR) NOT DETECTED (NOT DETECT); CHLAMYDIA PNEUMONIAE (PCR) NOT DETECTED (NOT DETECT); CORONAVIRUS 229E (PCR) NOT DETECTED (NOT DETECT); CORONAVIRUS HKU1 (PCR) NOT DETECTED (NOT DETECT); CORONAVIRUS NL63 (PCR) NOT DETECTED (NOT DETECT); CORONAVIRUS OC43 (PCR) NOT DETECTED (NOT DETECT); HUMAN METAPNEUMOVIRUS (PCR) NOT DETECTED (NOT DETECT); HUMAN RHINOVIRUS/ENTEROV (PCR) NOT DETECTED (NOT DETECT); INFLUENZA B (PCR) NOT DETECTED (NOT DETECT); MYCOPLASMA PNEUMONIAE (PCR) NOT DETECTED (NOT DETECT); PARAINFLUENZA VIRUS 1 (PCR) NOT DETECTED (NOT DETECT); PARAINFLUENZA VIRUS 2 (PCR) NOT DETECTED (NOT DETECT); PARAINFLUENZA VIRUS 3 (PCR) NOT DETECTED (NOT DETECT); PARAINFLUENZA VIRUS 4 (PCR) NOT DETECTED (NOT DETECT); RESPIRATORY SYNCYTIAL V (PCR) NOT DETECTED (NOT DETECT); SARS_COV_2 (PCR) NOT DETECTED (NOT DETECT)
[2021-07-28 12:03] LABS: ADENOVIRUS (PCR) NOT DETECTED (NOT DETECT)
[2021-07-28] MEDS: FLAGYL 500 MG/100 ML 500 MG/100 ML BAG IV SCH ×2 (12:25→21:31)
[2021-07-28] MEDS: SODIUM CHLORIDE 1,000 ML IV SCH (12:28)
[2021-07-28 13:23] VITALS: BMI 36.7
[2021-07-28] MEDS ORDERED: MORPHINE 4 MG/ML SYRINGE IVP PRN ×2 (14:23→14:46)
[2021-07-28] MEDS: ZOFRAN 4 MG/2 ML IVP PRN ×2 (14:30→20:57)
[2021-07-28] MEDS ORDERED: FLEXERIL PO PRN (14:34)
[2021-07-28] MEDS: MORPHINE 2 MG/ML IVP PRN ×2 (15:01→20:57)
[2021-07-28] MEDS: CATAPRES PO SCH ×2 (15:01→21:07)
[2021-07-28] MEDS: VENTOLIN HFA (PER PUFF-WITH SPACER) IH PRN ×2 (15:08→19:45)
[2021-07-28] MEDS: NITROSTAT SL PRN (17:55)
[2021-07-28 19:39] LABS: BILIRUBIN,URINE 1+ (NEGATIVE); CLARITY,URINE Clear (CLEAR); COLOR,URINE Amber (YELLOW); GLUCOSE, URINE (UA) Negative (NEGATIVE); KETONES,URINE Negative (NEGATIVE); LEUKOCYTE ESTERASE ,URINE Negative (NEGATIVE); NITRITE,URINE Negative (NEGATIVE); PH,URINE 5.5 (5-9); PROTEIN,URINE Negative (NEGATIVE); URINE, BLOOD Negative (NEGATIVE); UROBILINOGEN,URINE 0.2 (0.2)
[2021-07-28] MEDS: CIPRO 400 MG/200 ML D5W 400 MG/200 ML BAG IV SCH (20:06)
[2021-07-28] MEDS: CARDIZEM PO SCH (21:03)
[2021-07-28] MEDS: ELAVIL PO SCH (21:03)
[2021-07-28] MEDS: NEURONTIN PO SCH (21:03)
[2021-07-28] MEDS: LOPRESSOR PO SCH (21:04)
[2021-07-28] MEDS: FLOVENT HFA 110 MCG IH SCH (21:31)
[2021-07-28] MEDS: CARAFATE PO SCH (23:55)
[2021-07-29] MEDS: SODIUM CHLORIDE 1,000 ML IV SCH ×3 (03:29→19:15)
[2021-07-29] MEDS: FLAGYL 500 MG/100 ML 500 MG/100 ML BAG IV SCH ×3 (04:59→21:34)
[2021-07-29 05:17] LABS: BASOPHILS % (AUTO) 0.2 % (0.0-3.0); EOSINOPHILS # (AUTO) 0.5 K/ul (0.0-0.7); EOSINOPHILS % (AUTO) 3.2 % (0.0-7.0); HEMOGLOBIN 12.8 g/dl (12.0-16.0); IMMATURE GRANULOCYTE # (AUTO) 0.1 (0.0-1.0); IMMATURE GRANULOCYTE % (AUTO) 0.3 % (0.0-5.0); LYMPHOCYTES # (AUTO) 4.1 K/uL (0.60-3.4); LYMPHOCYTES % (AUTO) 24.8 (10.0-50.0); MEAN CORPUSCULAR HEMOGLOBIN 29.9 pg (27.0-31.0); MEAN CORPUSCULAR HGB CONC 33.7 (31.8-35.4); MEAN CORPUSCULAR VOLUME 88.8 fl (81.0-99.0); MONOCYTES # (AUTO) 0.9 K/uL (0.4-2.0); MONOCYTES % (AUTO) 5.3 (0-10); NEUTROPHILS # (AUTO) 10.9 K/ul (2.0-6.9); NEUTROPHILS % (AUTO) 66.2 % (42.2-75.2); PLATELET COUNT 211 10^3/uL (140-440); RDW COEFFICIENT OF VARIATION 14.3 % (11.6-14.8); RED BLOOD COUNT 4.28 10^6/ul (4.20-5.40); WHITE BLOOD COUNT 16.43 K/ul (4.6-10.2)
[2021-07-29 05:29] LABS: BLOOD UREA NITROGEN 24.1 mg/dL (7-17); CARBON DIOXIDE 25.1 mmol/L (22-30.0); CHLORIDE 101.3 mmol/L (98-107); CREATININE 1.17 mg/dL (0.60-1.30); GLUCOSE 94.3 mg/dL (74-106); POTASSIUM 3.8 mmol/L (3.5-5.1); SODIUM 135.2 mmol/L (134.5-145)
[2021-07-29] MEDS: SYNTHROID PO SCH (05:37)
[2021-07-29] MEDS: NEURONTIN PO SCH ×2 (08:14→20:07)
[2021-07-29] MEDS: CARDIZEM PO SCH ×2 (08:14→20:07)
[2021-07-29] MEDS: CATAPRES PO SCH ×3 (08:14→20:30)
[2021-07-29] MEDS: LOVENOX SUBCUT SCH (08:14)
[2021-07-29] MEDS: COZAAR PO SCH (08:14)
[2021-07-29] MEDS: HYDROCHLOROTHIAZIDE PO SCH (08:14)
[2021-07-29] MEDS: LOPRESSOR PO SCH ×2 (08:14→20:06)
[2021-07-29] MEDS: FLOVENT HFA 110 MCG IH SCH ×2 (08:15→20:07)
[2021-07-29] MEDS: CIPRO 400 MG/200 ML D5W 400 MG/200 ML BAG IV SCH ×2 (08:15→20:07)
--- NOTE | 2021-07-29 10:06 | PCM.PROG ---
Date Seen by Provider: 07/29/21 Time Seen by Provider: 10:00 Subjective: Feels better. Taking po without vomiting. No diarrhea. Objective: Vitals: T=97.7 F, P=55, R=18, KE=294/64, SPO2=97 HEENT: WNL[] Neck: [supple] Lungs: [clear] CVS: [RRR, no m] Abdomen: []soft Extremities: [intact] Neurological: [intact] Skin: wnl[] Lab/Tests/Diagnostic Imaging: [WBC 16, 24 on admit. BMP about the same.] (1) Colitis: Status: Acute Code(s): K52.9 - Noninfective gastroenteritis and colitis, unspecified SNOMED Code(s): 81537329 Assessment: On cipro and flagyl, better clinically, WBC 16K today. (2) Dehydration: Status: Acute Code(s): E86.0 - Dehydration SNOMED Code(s): 49146312 Assessment: Clinically improved, BUN still 24. Taking po fluids, but still behind. Plan: Continue cipro and flagyl. CBC in am. Increase IVF to 125 ml/hr, BMP in am.
[2021-07-29] MEDS: CARAFATE PO SCH ×2 (10:29→23:30)
[2021-07-29] MEDS: MORPHINE 2 MG/ML IVP PRN ×2 (10:29→20:24)
[2021-07-29] MEDS: ZOFRAN 4 MG/2 ML IVP PRN ×2 (10:30→20:24)
[2021-07-29] MEDS: ELAVIL PO SCH (20:07)
[2021-07-29] MEDS ORDERED: PHENERGAN 25 MG/ML VIAL IM STA (23:17)
[2021-07-30] MEDS: NITROSTAT SL PRN (01:26)
[2021-07-30] MEDS ORDERED: PROTONIX IV IVP ONE (01:50)
[2021-07-30] MEDS ORDERED: CATAPRES PO STA (01:51)
[2021-07-30] MEDS ORDERED: PROTONIX IV ONE (01:55)
[2021-07-30 02:45] LABS: BASOPHILS % (AUTO) 0.4 % (0.0-3.0); EOSINOPHILS # (AUTO) 0.5 K/ul (0.0-0.7); EOSINOPHILS % (AUTO) 5.3 % (0.0-7.0); HEMATOCRIT 36.8 % (37.0-47.0); HEMOGLOBIN 12.4 g/dl (12.0-16.0); IMMATURE GRANULOCYTE % (AUTO) 0.4 % (0.0-5.0); LYMPHOCYTES # (AUTO) 2.9 K/uL (0.60-3.4); LYMPHOCYTES % (AUTO) 28.8 (10.0-50.0); MEAN CORPUSCULAR HEMOGLOBIN 29.4 pg (27.0-31.0); MEAN CORPUSCULAR HGB CONC 33.7 (31.8-35.4); MEAN CORPUSCULAR VOLUME 87.2 fl (81.0-99.0); MONOCYTES # (AUTO) 0.5 K/uL (0.4-2.0); MONOCYTES % (AUTO) 5.4 (0-10); NEUTROPHILS % (AUTO) 59.7 % (42.2-75.2); PLATELET COUNT 205 10^3/uL (140-440); RED BLOOD COUNT 4.22 10^6/ul (4.20-5.40); WHITE BLOOD COUNT 9.98 K/ul (4.6-10.2)
[2021-07-30 02:59] LABS: ALANINE AMINOTRANSFERASE 27.5 U/L (0-35); ALBUMIN 3.78 g/dL (3.5-5.0); ALKALINE PHOSPHATASE 98.5 U/L (38-126); ASPARTATE AMINO TRANSFERASE 39.7 U/L (14-36); BILIRUBIN,TOTAL 0.45 mg/dL (0.2-1.3); BLOOD UREA NITROGEN 18.7 mg/dL (7-17); CALCIUM 9.27 mg/dL (8.4-10.2); CARBON DIOXIDE 26.1 mmol/L (22-30.0); CHLORIDE 104.4 mmol/L (98-107); CREATININE 1.13 mg/dL (0.60-1.30); GLUCOSE 101.5 mg/dL (74-106); POTASSIUM 4.02 mmol/L (3.5-5.1); TOTAL PROTEIN 6.56 g/dL (6.3-8.2)
[2021-07-30] MEDS: FLAGYL 500 MG/100 ML 500 MG/100 ML BAG IV SCH ×3 (04:57→20:11)
[2021-07-30] MEDS: SYNTHROID PO SCH (05:45)
[2021-07-30] MEDS: SODIUM CHLORIDE 1,000 ML IV SCH ×2 (06:44→17:22)
[2021-07-30] MEDS: CATAPRES PO SCH ×3 (08:35→21:12)
[2021-07-30] MEDS: COZAAR PO SCH (08:35)
[2021-07-30] MEDS: CARDIZEM PO SCH ×2 (08:35→23:01)
[2021-07-30] MEDS: LOPRESSOR PO SCH ×2 (08:36→21:11)
[2021-07-30] MEDS: NEURONTIN PO SCH ×2 (08:36→21:11)
[2021-07-30] MEDS: HYDROCHLOROTHIAZIDE PO SCH (08:36)
[2021-07-30] MEDS: CIPRO 400 MG/200 ML D5W 400 MG/200 ML BAG IV SCH ×2 (08:38→21:11)
[2021-07-30] MEDS: LOVENOX SUBCUT SCH (08:39)
[2021-07-30] MEDS: FLOVENT HFA 110 MCG IH SCH ×2 (08:39→21:11)
[2021-07-30] MEDS ORDERED: DRISDOL PO SCH (09:00)
--- NOTE | 2021-07-30 09:05 | PCM.PROG ---
Night Emergency Physician Note ~ 0151 hrs S : Pt c/o N/V while on zofran. Later some upper back sharp pain post emesis and elevated BP. She was concerned she did not keep her clonopin down reports prior hx of needing both phenergan and zofran for nausea control O: Gen- pt in no distress Lungs - Clear bilaterally Heart regular , BP up some Abd - non tender Mentation - normal A : Nausea /vomiting /elevated bp Consider GERD P : 1.For Nausea -pt receiving morphine Q 4 hrs - currently no reported chest or abdomen pain. This might be contributing to nausea. With no pain , will D/C morphin for now 2.For BP and sharp upper back pain - EKG ( NAC ) , Trop ( neg ) protonix 40mg IVP, PO clonnopin 0.1 mg 3.For nausea - Avoid use of phenergan with small wrist IV , discussed with pt and will Rx phenergan 25mg IM one time
[2021-07-30] MEDS: CARAFATE PO SCH ×2 (12:13→21:10)
[2021-07-30] MEDS: ZOFRAN 4 MG/2 ML IVP PRN (19:32)
[2021-07-30] MEDS: ELAVIL PO SCH (21:10)
[2021-07-30] MEDS ORDERED: TORADOL IVP ONE (21:25)
--- NOTE | 2021-07-30 23:39 | CT ---
EXAM: CT scan abdomen pelvis without contrast HISTORY: Nausea vomiting COMPARISON: CT scan abdomen pelvis 07/28/2021 FINDINGS: Helically acquired axial images obtained from lung bases to the symphysis pubis without co ntrast utilizing 3-mm collimation. Sagittal and coronal reconstructions were imaged and reviewed. T he visualized lung bases are clear. The gallbladder is fluid filled without cholelithiasis. The bandar er, pancreas, spleen and adrenal glands have normal unenhanced CT appearance. There is thickening of the distal esophagus. The kidneys are morphologically normal. Atherosclerotic changes are seen inv olving the aorta without aneurysm formation. There is normal retrocecal appendix. Diverticulosis is seen in the rectosigmoid colon. Residual thickening is seen involving the left colon compatible wit h improving colitis. There is no free fluid. IMPRESSION: Improving colitis involving the descending colon. ASVD without aneurysm. Mild thickening of the distal esophagus. No free fluid All CT scans are performed using dose optimization techniques as appropriate to the performed exam an d include at least one of the following: Automated exposure control, adjustment of the mA and/or kV according t o size, and the use of iterative reconstruction technique.
[2021-07-30] MEDS ORDERED: PHENERGAN 25 MG/ML VIAL 25 MG in SODIUM CHLORIDE 50 ML IV PRN (23:51)
[2021-07-31] MEDS ORDERED: PHENERGAN 25 MG/ML VIAL ONE ×3 (01:33→15:01)
[2021-07-31] MEDS: SODIUM CHLORIDE 1,000 ML IV SCH ×5 (04:31→18:10)
[2021-07-31] MEDS: FLAGYL 500 MG/100 ML 500 MG/100 ML BAG IV SCH ×3 (04:51→21:38)
[2021-07-31 05:11] LABS: BASOPHILS % (AUTO) 0.4 % (0.0-3.0); EOSINOPHILS # (AUTO) 0.4 K/ul (0.0-0.7); EOSINOPHILS % (AUTO) 4.9 % (0.0-7.0); HEMATOCRIT 34.2 % (37.0-47.0); HEMOGLOBIN 11.5 g/dl (12.0-16.0); IMMATURE GRANULOCYTE % (AUTO) 0.4 % (0.0-5.0); LYMPHOCYTES # (AUTO) 2.3 K/uL (0.60-3.4); LYMPHOCYTES % (AUTO) 29.6 (10.0-50.0); MEAN CORPUSCULAR HEMOGLOBIN 29.4 pg (27.0-31.0); MEAN CORPUSCULAR HGB CONC 33.6 (31.8-35.4); MEAN CORPUSCULAR VOLUME 87.5 fl (81.0-99.0); MONOCYTES # (AUTO) 0.4 K/uL (0.4-2.0); MONOCYTES % (AUTO) 5.3 (0-10); NEUTROPHILS # (AUTO) 4.7 K/ul (2.0-6.9); NEUTROPHILS % (AUTO) 59.4 % (42.2-75.2); PLATELET COUNT 205 10^3/uL (140-440); RDW COEFFICIENT OF VARIATION 13.7 % (11.6-14.8); RED BLOOD COUNT 3.91 10^6/ul (4.20-5.40); WHITE BLOOD COUNT 7.88 K/ul (4.6-10.2)
[2021-07-31 05:21] LABS: ALANINE AMINOTRANSFERASE 24.7 U/L (0-35); ALBUMIN 3.51 g/dL (3.5-5.0); ALKALINE PHOSPHATASE 72.1 U/L (38-126); ASPARTATE AMINO TRANSFERASE 35.4 U/L (14-36); BILIRUBIN,TOTAL 0.42 mg/dL (0.2-1.3); BLOOD UREA NITROGEN 11.6 mg/dL (7-17); CALCIUM 8.76 mg/dL (8.4-10.2); CHLORIDE 105.9 mmol/L (98-107); CREATININE 1.11 mg/dL (0.60-1.30); GLUCOSE 90.5 mg/dL (74-106); POTASSIUM 3.77 mmol/L (3.5-5.1); SODIUM 136.8 mmol/L (134.5-145); TOTAL PROTEIN 6.24 g/dL (6.3-8.2)
[2021-07-31] MEDS: SYNTHROID PO SCH (06:00)
[2021-07-31] MEDS: CIPRO 400 MG/200 ML D5W 400 MG/200 ML BAG IV SCH ×2 (09:26→20:12)
--- NOTE | 2021-07-31 09:45 | PCM.PROG ---
Date Seen by Provider: 07/31/21 Time Seen by Provider: 09:05 Subjective: Pt admitted for colitis, N/V. Still having N/V that is difficult to control. Has been switched to phenergan with some improvement. Repeat CT shows improving colitis. No F/C/CP/SOB Objective: Vitals: T=98.2 F, P=69, R=18, LA=660/85, SPO2=98 Lungs: Clear CVS: RRR Abdomen: Min TTP Neurological: no findings Lab/Tests/Diagnostic Imaging: WBC 7.8, Hb 11.5 (1) Colitis: Status: Acute Code(s): K52.9 - Noninfective gastroenteritis and colitis, unspecified SNOMED Code(s): 02850680 (2) Dehydration: Status: Acute Code(s): E86.0 - Dehydration SNOMED Code(s): 14957498 Plan: 1. Colitis: Continue antibiotis, fluids and anti emetics. Order US gallbladder to assure no GB issue. Repeat labs in AM.
[2021-07-31] MEDS: CARAFATE PO SCH ×2 (10:22→21:36)
[2021-07-31] MEDS: CARDIZEM PO SCH ×2 (10:23→21:37)
[2021-07-31] MEDS: CATAPRES PO SCH ×3 (10:24→21:58)
[2021-07-31] MEDS: FLOVENT HFA 110 MCG IH SCH ×2 (10:26→21:37)
[2021-07-31] MEDS: HYDROCHLOROTHIAZIDE PO SCH (10:26)
[2021-07-31] MEDS: COZAAR PO SCH (10:26)
[2021-07-31] MEDS: LOPRESSOR PO SCH ×2 (10:26→21:59)
[2021-07-31] MEDS: LOVENOX SUBCUT SCH (10:27)
[2021-07-31] MEDS: NEURONTIN PO SCH ×2 (10:27→21:37)
--- NOTE | 2021-07-31 11:36 | US ---
EXAM: Abdominal ultrasound limited HISTORY: Abdominal pain and vomiting COMPARISON: CT abdomen pelvis 07/30/2021 and multiple priors TECHNIQUE: Sonographic and limited Doppler evaluation of the right upper quadrant was performed. FINDINGS: The liver is normal in echogenicity and measures 17.7 cm. The portal vein is patent. The gallbladder demonstrates no stones or inflammation. The gallbladder wall measures 0.2 cm in thickne ss. Common bile duct is unremarkable and measures 0.5 cm in diameter. The pancreas is unremarkable in appearance. Right kidney measures 11.0 x 4.2 x 4.1 cm with cortical thickness of 1.3 cm. IMPRESSION: No sonographic abnormality to account for patient's symptoms.
[2021-07-31] MEDS: TORADOL IVP PRN (15:21)
[2021-07-31] MEDS ORDERED: LOPRESSOR IVP ONE (20:08)
[2021-07-31] MEDS: ZOFRAN 4 MG/2 ML IVP PRN (20:47)
[2021-07-31] MEDS: ELAVIL PO SCH (21:37)
[2021-08-01] MEDS: SODIUM CHLORIDE 1,000 ML IV SCH ×2 (05:17→16:34)
[2021-08-01 05:20] LABS: BASOPHILS % (AUTO) 0.4 % (0.0-3.0); EOSINOPHILS # (AUTO) 0.3 K/ul (0.0-0.7); EOSINOPHILS % (AUTO) 3.9 % (0.0-7.0); HEMOGLOBIN 11.5 g/dl (12.0-16.0); IMMATURE GRANULOCYTE % (AUTO) 0.5 % (0.0-5.0); LYMPHOCYTES # (AUTO) 2.6 K/uL (0.60-3.4); MEAN CORPUSCULAR HEMOGLOBIN 29.3 pg (27.0-31.0); MEAN CORPUSCULAR HGB CONC 33.8 (31.8-35.4); MEAN CORPUSCULAR VOLUME 86.5 fl (81.0-99.0); MONOCYTES # (AUTO) 0.5 K/uL (0.4-2.0); MONOCYTES % (AUTO) 6.5 (0-10); NEUTROPHILS # (AUTO) 4.7 K/ul (2.0-6.9); NEUTROPHILS % (AUTO) 56.7 % (42.2-75.2); PLATELET COUNT 214 10^3/uL (140-440); RDW COEFFICIENT OF VARIATION 13.6 % (11.6-14.8); RED BLOOD COUNT 3.93 10^6/ul (4.20-5.40); WHITE BLOOD COUNT 8.21 K/ul (4.6-10.2)
[2021-08-01] MEDS: FLAGYL 500 MG/100 ML 500 MG/100 ML BAG IV SCH ×2 (05:29→21:08)
[2021-08-01 05:31] LABS: ALANINE AMINOTRANSFERASE 27.3 U/L (0-35); ALBUMIN 3.66 g/dL (3.5-5.0); ALKALINE PHOSPHATASE 61.8 U/L (38-126); ASPARTATE AMINO TRANSFERASE 55.5 U/L (14-36); BILIRUBIN,TOTAL 0.42 mg/dL (0.2-1.3); BLOOD UREA NITROGEN 10.1 mg/dL (7-17); CALCIUM 8.51 mg/dL (8.4-10.2); CARBON DIOXIDE 23.2 mmol/L (22-30.0); CHLORIDE 106.5 mmol/L (98-107); CREATININE 1.1 mg/dL (0.60-1.30); GLUCOSE 86.7 mg/dL (74-106); POTASSIUM 3.48 mmol/L (3.5-5.1); SODIUM 137.1 mmol/L (134.5-145); TOTAL PROTEIN 6.46 g/dL (6.3-8.2)
[2021-08-01] MEDS: SYNTHROID PO SCH (05:38)
[2021-08-01] MEDS ORDERED: LOPRESSOR IVP ONE (05:42)
[2021-08-01] MEDS: CIPRO 400 MG/200 ML D5W 400 MG/200 ML BAG IV SCH ×2 (09:38→21:04)
[2021-08-01] MEDS: FLOVENT HFA 110 MCG IH SCH ×2 (09:39→21:11)
[2021-08-01] MEDS: HYDROCHLOROTHIAZIDE PO SCH ×2 (10:11→14:32)
[2021-08-01] MEDS: CATAPRES PO SCH ×4 (10:11→21:07)
[2021-08-01] MEDS: CARDIZEM PO SCH ×3 (10:11→21:08)
[2021-08-01] MEDS: COZAAR PO SCH ×2 (10:11→14:32)
[2021-08-01] MEDS: CARAFATE PO SCH ×2 (10:11→21:08)
[2021-08-01] MEDS: NEURONTIN PO SCH ×2 (10:12→21:12)
[2021-08-01] MEDS: LOVENOX SUBCUT SCH (10:12)
[2021-08-01] MEDS: LOPRESSOR PO SCH ×3 (10:12→21:08)
--- NOTE | 2021-08-01 10:14 | PCM.PROG ---
care assumed from Dr Marks at 7am pt improving, decreased NV, treated with IV hydration, zofran and phenergan, advancing diet slowly (pt had partial meal of cream of wheat today), continued treatment of colitis with flagyl and cipro (will reorder today), will continue to advance diet slowly heent: buccal moist, conjunctiva clear lungs: clear heart: RRR abdomen: soft, no rebound etremities: warm, dry, pulses intact psych: alert and oriented, cooperative care to Dr Olivas at 7pm
[2021-08-01] MEDS: TORADOL IVP PRN (10:32)
[2021-08-01] MEDS: ZOFRAN 4 MG/2 ML IVP PRN (10:32)
[2021-08-01] MEDS: ELAVIL PO SCH (21:11)
[2021-08-02] MEDS: SODIUM CHLORIDE 1,000 ML IV SCH (01:44)
[2021-08-02 05:25] VITALS: BP 153/87; TEMP 97.7
[2021-08-02] MEDS: SYNTHROID PO SCH (05:45)
[2021-08-02] MEDS: HYDROCHLOROTHIAZIDE PO SCH (09:16)
[2021-08-02] MEDS: NEURONTIN PO SCH (09:16)
[2021-08-02] MEDS: COZAAR PO SCH (09:17)
[2021-08-02] MEDS: CARDIZEM PO SCH (09:17)
[2021-08-02] MEDS: LOPRESSOR PO SCH (09:17)
[2021-08-02] MEDS: CATAPRES PO SCH (09:17)
[2021-08-02] MEDS: CIPRO 400 MG/200 ML D5W 400 MG/200 ML BAG IV SCH (09:17)
[2021-08-02] MEDS: CARAFATE PO SCH (09:17)
[2021-08-02] MEDS: FLOVENT HFA 110 MCG IH SCH (09:19)
[2021-08-02] MEDS: FLAGYL 500 MG/100 ML 500 MG/100 ML BAG IV SCH (09:19)
[2021-08-02] MEDS: LOVENOX SUBCUT SCH (09:20)
--- NOTE | 2021-08-02 10:05 | PCM.DC ---
Final Diagnosis: Colitis, Nausea and Vomiting, Dehydration (1) Colitis: Status: Acute Code(s): K52.9 - Noninfective gastroenteritis and colitis, unspecified SNOMED Code(s): 33448350 Reason for Hospitalization: Pt was hospitalized for N/V, dehydration and colitis. Prognosis/Condition at Discharge: Pt is doing much better and has advanced her diet. No longer with any pain. Medications at Discharge: Ambulatory Orders Medication Instructions Recorded nitroglycerin 0.4 mg sublingual 0.4 mg SUBLINGUAL Q5MIN X 3 DOSES 08/26/17 tablet (Nitrostat) PRN albuterol sulfate 2.5 mg (3 mL) INHALATION Q4-6H PRN 04/19/20 #100 vial albuterol sulfate 90 mcg/actuation 1 - 2 puff INHALATION Q4-6H PRN #1 04/19/20 aerosol inhaler (ProAir HFA) ih sucralfate 1 gram tablet (Carafate) 1 g PO BID tab 09/29/20 cyclobenzaprine 10 mg tablet See Rx Instructions .ROUTE 03/17/21 .COMPLEX #60 tab diltiazem HCl 60 mg tablet See Rx Instructions .ROUTE 04/26/21 .COMPLEX #180 tab hydrochlorothiazide 12.5 mg tablet See Rx Instructions .ROUTE 04/26/21 .COMPLEX #90 tab levothyroxine 100 mcg tablet See Rx Instructions .ROUTE 04/26/21 .COMPLEX #90 tab losartan 100 mg tablet See Rx Instructions .ROUTE 04/26/21 .COMPLEX #90 tab metoprolol tartrate 100 mg tablet See Rx Instructions .ROUTE 04/26/21 .COMPLEX #180 tablet clonidine HCl 0.1 mg tablet See Rx Instructions .ROUTE 06/01/21 .COMPLEX #90 tab amitriptyline 50 mg tablet 50 mg PO QHS #90 tab 06/07/21 ergocalciferol (vitamin D2) 1,250 1,250 mcg PO WEEKLY 07/28/21 mcg (50,000 unit) capsule fluticasone propionate 110 2 inh INHALATION BID 07/28/21 mcg/actuation HFA aerosol inhaler (Flovent HFA) gabapentin 100 mg capsule 100 mg PO BID 07/28/21 lidocaine 5 % topical patch 1 patch TOPICAL DAILY PRN 07/31/21 Lab/Diagnostics: See labs which have improved during her stay Follow-ups: Follow-up with your primary car physician in 2-3 days. Discharge Disposition: Home Hospital Course: Pt was admitted and received fluids, IV antibiotics and had her diet advanced. It took a few more days then expected but at time of DC, she was toleratin food without difficulty and her pain had resolved. Labs had normalized. She was doing ,much better. Plan: 1. Colitis: Continue Augmentin for 5 days. as well as Zofran as needed 2. Diet: Advance as tolerated.
== END 2021-08-02 11:30 | disposition home or self-care (01) | DRG 392 ==
LOC: ED 06:28 → MEDSURG A 12:28
PROVIDERS: ADMIT Emergency Medicine; ATTEND Emergency Medicine

== ENCOUNTER 2022-01-14 12:44 | Inpatient (IN) ==
[2022-01-14 12:52] VITALS: BP 112/89
[2022-01-14] MEDS ORDERED: LACTATED RINGERS 1,000 ML IV STA (12:56)
[2022-01-14] MEDS ORDERED: PHENERGAN 25 MG/ML VIAL 25 MG in SODIUM CHLORIDE 50 ML IV STA (12:56)
[2022-01-14] MEDS ORDERED: SODIUM CHLORIDE 500 ML IV STA ×2 (12:59→14:41)
--- NOTE | 2022-01-14 13:25 | CT ---
EXAM: CT of the head without contrast. HISTORY: Dizziness. COMPARISON: 03/17/2019. TECHNIQUE: Noncontrast CT of the head. FINDINGS: No intracranial hemorrhage or mass effect is identified. There is mild prominence of the sulci. The ventricles are normal in size and configuration. Mild periventricular white matter hypodensities ar e seen. No rogers white matter differentiation loss is seen to suggest an acute infarct. The calvarium is intact. The visualized paranasal sinuses are unopacified. IMPRESSION: No evidence of an acute intracranial process. Mild atrophy and chronic small vessel ischemic changes. All CT scans are performed using dose optimization techniques as appropriate to the performed exam an d include at least one of the following: Automated exposure control, adjustment of the mA and/or kV according t o size, and the use of iterative reconstruction technique.
[2022-01-14] MEDS ORDERED: PHENERGAN 25 MG/ML VIAL ONE (13:32)
[2022-01-14 13:35] LABS: BASOPHILS # (AUTO) 0.1 K/uL (0-0.2); BASOPHILS % (AUTO) 0.4 % (0.0-3.0); EOSINOPHILS # (AUTO) 0.1 K/ul (0.0-0.7); EOSINOPHILS % (AUTO) 0.6 % (0.0-7.0); HEMATOCRIT 44.2 % (37.0-47.0); HEMOGLOBIN 15.3 g/dl (12.0-16.0); IMMATURE GRANULOCYTE # (AUTO) 0.2 (0.0-1.0); IMMATURE GRANULOCYTE % (AUTO) 1.2 % (0.0-5.0); LYMPHOCYTES # (AUTO) 1.9 K/uL (0.60-3.4); MEAN CORPUSCULAR HEMOGLOBIN 28.9 pg (27.0-31.0); MEAN CORPUSCULAR HGB CONC 34.6 (31.8-35.4); MEAN CORPUSCULAR VOLUME 83.6 fl (81.0-99.0); MONOCYTES # (AUTO) 0.7 K/uL (0.4-2.0); MONOCYTES % (AUTO) 4.8 (0-10); NEUTROPHILS # (AUTO) 10.8 K/ul (2.0-6.9); PLATELET COUNT 270 10^3/uL (140-440); RDW COEFFICIENT OF VARIATION 13.6 % (11.6-14.8); RED BLOOD COUNT 5.29 10^6/ul (4.20-5.40); WHITE BLOOD COUNT 13.67 K/ul (4.6-10.2)
[2022-01-14 13:37] LABS: MOLECULAR FLU A NEGATIVE BY NAAT (NEGATIVE); MOLECULAR FLU B NEGATIVE BY NAAT (NEGATIVE)
--- NOTE | 2022-01-14 13:41 | DI ---
EXAM: Chest two views HISTORY: Cough COMPARISON: Chest 07/28/2021 FINDINGS: Cardiac silhouette and mediastinum are normal. No pulmonary consolidation is seen. Tere bronchial thickening in the lung bases, left greater than right. Clothing overlies the thorax.. Ther e is no pleural effusion. Osteophyte formation seen involving margins [id number] thoracic vertebra . IMPRESSION: Cardiac silhouette normal size Peribronchial thickening lung bases, left greater than right. Correlate clinically regarding acute b ronchitis
--- NOTE | 2022-01-14 13:41 | CT ---
EXAM: Noncontrast CT of the abdomen and pelvis HISTORY: Vomiting COMPARISON: 07/30/2021 TECHNIQUE: Axial noncontrast CT of the abdomen and pelvis with sagittal and coronal reformats. FINDINGS: Left lower lobe tree in bud opacities are now seen. Noncontrast technique limits evaluation of abdominal viscera. The unenhanced liver, gallbladder, spl een, adrenals, kidneys and pancreas are normal appearance. The stomach appears within normal limits. No abnormal bowel dilation is identified. Minimal descend ing colon diverticulosis is seen without evidence of diverticulitis. The appendix is within normal l imits. Mild atherosclerotic calcifications are seen. No lymphadenopathy is identified. No free air or free fluid is identified. There is a tiny fat containing umbilical hernia. IMPRESSION: No acute intra-abdominal findings. Left lower lobe small airway infection/inflammation. Minimal diverticulosis without evidence of diverticulitis. All CT scans are performed using dose optimization techniques as appropriate to the performed exam an d include at least one of the following: Automated exposure control, adjustment of the mA and/or kV according t o size, and the use of iterative reconstruction technique.
[2022-01-14 13:48] LABS: ALANINE AMINOTRANSFERASE 25.9 U/L (0-35); ALBUMIN 5.33 g/dL (3.5-5.0); ALKALINE PHOSPHATASE 97.5 U/L (38-126); AMYLASE 80.2 U/L (30-110); BILIRUBIN,TOTAL 0.84 mg/dL (0.2-1.3); CALCIUM 10.63 mg/dL (8.4-10.2); CARBON DIOXIDE 17.8 mmol/L (22-30.0); CHLORIDE 97.2 mmol/L (98-107); CREATININE 2.83 mg/dL (0.60-1.30); GLUCOSE 127.8 mg/dL (74-106); LIPASE 200.2 U/L (23-300); POTASSIUM 4.73 mmol/L (3.5-5.1); TOTAL PROTEIN 9.25 g/dL (6.3-8.2)
--- NOTE | 2022-01-14 14:00 | ED.PDOC ---
General ED Provider: Dr. COLETTE MENDOSA Chief Complaint: Nausea/Vomiting Stated Complaint: tigist had a cough and vomiting x 2 weeks Time Seen by Provider: 01/14/22 12:52 Mode of Arrival: Walk-In Information Source: Patient Exam Limitations: No limitations Primary Care Provider: MARAH GRAY Nursing and Triage Documentation Reviewed and Agree: Yes Does patient meet sepsis criteria?: No System Inflammatory Response Syndrome: Not Applicable Sepsis Protocol: For patient's 13 years and over: Temp is 96.8 and below OR 101 and greater Pulse >90 BPM Resp >20/minute Acutely Altered Mental Status Are patient's symptoms suggestive of a new infection, such as: -Pneumonia -Skin, Soft Tissue -Endocarditis -UTI -Bone, Joint Infection -Implantable Device -Acute Abdominal Infection -Wound Infection -Meningitis -Blood Stream Catheter Infection -Unknown GI Complaint Exam Vomiting/Diarrhea Complaint/Exam Onset/Duration: 2 weeks Symptoms Are: Still present Initial Severity: Mild Current Severity: Moderate Character of Vomiting: Reports Non-bilious Aggravating: Reports None Alleviating: Reports None Associated Signs and Symptoms: Reports Dizziness Recent Positive Test: No Use of Oral Contraceptives: No Use of Depoprovera: No Compliant With Contraceptive Use: No Non-GI Risk Factors: Reports None Abdominal Findings: Present None Kussmaul Respirations Present: No Differential Diagnoses: Dehydration, Viral Gastroenteritis, Pancreatitis and UTI Review of Systems Review Of Systems Constitutional: Reports No symptoms Eyes: Reports No symptoms Ears, Nose, Mouth, Throat: Reports No symptoms Respiratory: Reports Cough Cardiac: Reports No symptoms GI: Reports Nausea and Vomiting : Reports No symptoms Musculoskeletal: Reports No symptoms Skin: Reports No symptoms Neurological: Reports No symptoms Endocrine: Reports No symptoms Hematologic/Lymphatic: Reports No symptoms All Other Systems: Reviewed and Negative [facility] Medical History Abnormal mammogram Angina Asthma ASVD (arteriosclerotic vascular disease) COPD (chronic obstructive pulmonary disease) Coronary arteriosclerosis Cyst of breast Deep vein thrombosis (DVT) of axillary vein of right upper extremity Diverticulosis Fat necrosis of right breast Glaucoma History of COVID-19 Hyperlipidemia Hypertension Hypothyroidism Impaired vision in both eyes Impairment of balance Insomnia Recurrent falls Sleep apnea Weakness of left leg Family History Mother Type 1 diabetes mellitus FATHER Hypertension Grandfather/Grandmother Type 1 diabetes mellitus Hypertension COUSIN Glaucoma Social History Smoking and tobacco status: Former smoker Tobacco: How many years used: 10 Second hand smoke exposure: Yes Alcohol intake: current Substance use type: does not use Nohemi/hindu: Sabianism Special nohemi needs: No Agree to transfusion: Yes Adopted: No Caregiver/support person: Yes Household members: spouse Housing: house Lives independently: Yes Highest education level completed: high school graduate Financial difficulty paying for basics: not applicable service: No Current occupational status: employed Current occupation: [employer] Current occupational exposures/hazards: Yes Pets and animals: Yes Leisure activites: music and other History of recent travel: No Sexually active: Yes Do you think of yourself as: straight/heterosexual Current gender identity: female Seatbelt use: always Helmet use: No Drives intoxicated or rides with intoxicated 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 Water heater temperature set < 120 degrees: Yes Working smoke detector in home: Yes Fire extinguisher in home: Yes Carbon monoxide detector in home: Yes Firearms in home: Yes Firearms unloaded and locked: Yes Surgical History History of eye surgery History of tubal ligation Female Reproductive History Menstrual Hx Hysterectomy: No Hx Tubal Ligation: Yes Physical Exam Physical Exam Appearance: Reports Well-appearing Ill-appearing: Not Applicable Pain Distress: Not Applicable Eyes: Reports DELORES, EOMI and Conjunctiva clear ENT: Reports Ears normal, Nose normal and Oropharynx normal Neck: Supple Respiratory: Reports Airway patent, Breath sounds clear and Breath sounds equal Cardiovascular: Reports RRR, Pulses normal, No rub and No murmur GI/: Reports Soft, Nontender, No masses and Bowel sounds normal Musculoskeletal: Reports Normal strength, ROM intact, No edema and No calf tenderness Skin: Reports Warm, Dry and Normal color Neurological: Reports Sensation intact, Motor intact and Reflexes intact Psychiatric: Reports Affect appropriate and Mood appropriate Interpretation Radiology Interpretation Radiology Interpretation By: Radiologist Radiology Results: Positive Exam Interpreted: CT Scan EKG Interpretation Time of EKG #1: 15:01 Rate: Normal Rhythm: Sinus Ectopy: None [place]: NL ST Segment: Normal Interpretation: nsr Critical Care Note Critical Care Note Total Critical Care Time (mins): 0 Course Course Hematology/Chemistry: 01/14/22 13:15 01/14/22 13:15 Orders, Labs, Meds: Lab Review 01/14/22 01/14/22 01/14/22 13:05 13:05 13:15 WBC 13.67 H RBC 5.29 Hgb 15.3 Hct 44.2 MCV 83.6 MCH 28.9 MCHC 34.6 RDW Coeff of Lalo 13.6 Plt Count 270 Immature Gran % (Auto) 1.2 Neut % (Auto) 79.0 H Lymph % (Auto) 14.0 [place] % (Auto) 4.8 Eos % (Auto) 0.6 Baso % (Auto) 0.4 Neut # (Auto) 10.8 H Lymph # (Auto) 1.9 [place] # (Auto) 0.7 Eos # (Auto) 0.1 Baso # (Auto) 0.1 Immature Gran # (Auto) 0.2 Sodium Potassium Chloride Carbon Dioxide Anion Gap BUN Creatinine Estimated GFR (MDRD) BUN/Creatinine Ratio Glucose Calcium Total Bilirubin AST ALT Alkaline Phosphatase Total Protein Albumin Globulin Albumin/Globulin Ratio Amylase Lipase Influ A Molecular Assay Negative by naat Influ B Molecular Assay Negative by naat SARS-CoV-2 Ag (Rapid) Negative 01/14/22 13:15 WBC RBC Hgb Hct MCV MCH MCHC RDW Coeff of Lalo Plt Count Immature Gran % (Auto) Neut % (Auto) Lymph % (Auto) [place] % (Auto) Eos % (Auto) Baso % (Auto) Neut # (Auto) Lymph # (Auto) [place] # (Auto) Eos # (Auto) Baso # (Auto) Immature Gran # (Auto) Sodium 134.0 L Potassium 4.73 Chloride 97.2 L Carbon Dioxide 17.8 L Anion Gap 23.73 BUN 68.8 H* Creatinine 2.83 H Estimated GFR (MDRD) 17.00 BUN/Creatinine Ratio 24.31 Glucose 127.8 H Calcium 10.63 H Total Bilirubin 0.84 AST 31.0 ALT 25.9 Alkaline Phosphatase 97.5 Total Protein 9.25 H Albumin 5.33 H Globulin 3.92 Albumin/Globulin Ratio 1.35 Amylase 80.2 Lipase 200.2 Influ A Molecular Assay Influ B Molecular Assay SARS-CoV-2 Ag (Rapid) Orders Category Date Time Status EKG-(ED ONLY) Stat CARDIO 01/14/22 12:57 Completed ED FIELD REPORTER APPLIED .ONCE EMERGENCY 01/14/22 12:57 Active ED IV/MEDIPORT/POWERPORT .ONCE EMERGENCY 01/14/22 12:57 Active AMYLASE Stat LAB 01/14/22 13:15 Completed CBC W/ AUTO DIFF Stat LAB 01/14/22 13:15 Completed COMPREHENSIVE METABOLIC PANEL Stat LAB 01/14/22 13:15 Completed COVID-19 ANTIGEN TEST Stat LAB 01/14/22 13:05 Completed FLU A/B MOLECULAR Stat LAB 01/14/22 13:05 Completed LIPASE Stat LAB 01/14/22 13:15 Completed URINALYSIS C & S IF INDICATED Stat LAB 01/14/22 14:48 Received 0.9 % Sodium Chloride [Saline Flush] MEDS 01/14/22 12:56 Active 1 syr IVF PRN PRN Promethazine HCl [Phenergan 25 mg/ml Vial] 25 mg MEDS 01/14/22 12:56 Discontinued 0.9 % Sodium Chloride [Sodium Chloride] 50 ml IV ONCE Sodium Chloride 0.9% [Sodium Chloride] 500 ml MEDS 01/14/22 12:59 Discontinued IV BOLUS Sodium Chloride 0.9% [Sodium Chloride] 500 ml MEDS 01/14/22 14:[address] ABDOMEN/PELVIS WO CONTRAST Stat RADS 01/14/22 12:[address] HEAD W/O CONTRAST Stat RADS 01/14/22 12:56 Completed CXR [CHEST, 2 VIEWS PA & LAT] Stat RADS 01/14/22 12:56 Completed Medications Generic Name Dose Route Start Last Admin Trade Name Freq PRN Reason Stop Dose Admin Sodium Chloride 500 mls @ 500 mls/hr 01/14/22 14:41 Sodium Chloride IV 01/14/22 15:40 BOLUS STA Sodium Chloride 1 syr 01/14/22 12:56 01/14/22 13:36 0.9% Sodium Chloride 10 Ml Disp.Syrin IVF 1 syr PRN PRN Administration To flush IV Discontinued Medications Generic Name Dose Route Start Last Admin Trade Name Freq PRN Reason Stop Dose Admin Promethazine HCl 25 mg/ Sodium 51 mls @ 75 mls/hr 01/14/22 12:56 01/14/22 13:32 Chloride IV 01/14/22 13:36 75 mls/hr ONCE STA Administration Sodium Chloride 500 mls @ 500 mls/hr 01/14/22 12:59 01/14/22 13:31 Sodium Chloride IV 01/14/22 13:58 500 mls/hr BOLUS STA Administration Vital Signs: Temp Pulse Resp BP Pulse Ox 01/14/22 12:45 97.8 F 94 H 18 112/89 98 Discharge Plan Discharge Patient Disposition: ADMITTED INPATIENT Discharge Problem: STEPHANY (acute kidney injury), Pneumonia Prescriptions: No Action nitroglycerin [Nitrostat] 0.4 MG tablet, sublingual 0.4 mg sublingual Q5MIN X 3 DOSES PRN (Reason: Chest Pain) 0RF gabapentin 100 mg capsule 100 mg PO BID 0RF Label Comments: TAKE 1 CAPSULE BY MOUTH TWICE DAILY ergocalciferol (vitamin D2) 1,250 mcg (50,000 unit) capsule 1,250 mcg PO WEEKLY 0RF Flovent HFA 110 mcg/actuation HFA aerosol inhaler 2 inh INHALATION BID 0RF Label Comments: INHALE 2 PUFFS BY MOUTH TWICE DAILY carvedilol 25 mg tablet 25 mg PO BID 0RF ipratropium-albuterol 0.5 mg-3 mg(2.5 mg base)/3 mL solution for nebulization 3 ml INHALATION QID 0RF Label Comments: USE 3 ML VIA NEBULIZER FOUR TIMES DAILY chlorthalidone 25 mg Tablet 25 mg PO DAILY 0RF spironolactone 25 mg tablet 25 mg PO DAILY 0RF famotidine 20 mg Tablet 20 mg PO BID 0RF aspirin 81 mg Capsule 81 mg PO DAILY 0RF cyclobenzaprine 10 mg tablet 10 mg PO BID 0RF clonidine HCl 0.1 mg tablet 0.1 mg PO DAILY 0RF amitriptyline 50 mg tablet 75 mg PO QHS 0RF levothyroxine 100 mcg tablet 100 mcg PO DAILY 0RF albuterol sulfate [ProAir HFA] 90 mcg/actuation HFA aerosol inhaler 2 puff inhalation Q4-6H PRN (Reason: Wheezing) 0RF sucralfate [Carafate] 1 gram tablet 1 g PO BID 0RF ED Provider: COLETTE MEDRANO Condition: Fair Physician Progress Note: []
[2022-01-14 14:01] LABS: BLOOD UREA NITROGEN 68.8 mg/dL (7-17)
[2022-01-14 14:55] LABS: BILIRUBIN,URINE 1+ (NEGATIVE); CLARITY,URINE Clear (CLEAR); COLOR,URINE Yellow (YELLOW); GLUCOSE, URINE (UA) Negative (NEGATIVE); KETONES,URINE 1+ (NEGATIVE); LEUKOCYTE ESTERASE ,URINE 1+ (NEGATIVE); NITRITE,URINE Negative (NEGATIVE); PROTEIN,URINE Trace (NEGATIVE); URINE, BLOOD Trace-lysed (NEGATIVE); UROBILINOGEN,URINE 0.2 (0.2)
[2022-01-14] MEDS ORDERED: NITROSTAT SL PRN (15:05)
[2022-01-14 15:07] LABS: BACTERIA,URINE 3+ (NOT PRESENT); HYALINE CASTS, URINE 0-2 (NOT PRESENT); URINE RBC, MICROSCOPIC 0-2 (0-2); URINE WBC, MICROSCOPIC 30-50 (0-2)
--- NOTE | 2022-01-14 15:27 | PCM ---
Chief Complaint Chief Complaint: tigist been coughing and vomiting for 2 weeks History of Present Illness History of Present Illness: ms ruiz presented to the er today with cough, congestion, vomiting and inability to take oral for 2 weeks. Her is also being eval today for fever and cough. Review of Systems Constitutional: Reports Weakness, Fatigue and Loss of appetite Eyes: Reports No symptoms Ears: Reports No symptoms Nose: Reports No symptoms Throat: Reports No symptoms Respiratory: Reports Cough Cardiovascular: Reports No symptoms Gastrointestinal: Reports Nausea and Vomiting Genitourinary: Reports No symptoms Neurological: Reports No symptoms Musculoskeletal: Reports No symptoms Skin: Reports No symptoms Immunology: Reports No symptoms Hematology: Reports No symptoms Endocrine: Reports No symptoms Psychiatric: Reports No symptoms Habits: Reports Tobacco use Allergies Allergies Allergy/AdvReac Type Severity Reaction Status Date / Time hydrocodone bitartrate AdvReac Intermediate Itching Verified 01/14/22 13:04 [From Lortab] codeine [Codeine] AdvReac Vomiting Verified 01/14/22 13:04 egg AdvReac Rash Verified 01/14/22 13:04 lanolin AdvReac Rash Verified 01/14/22 13:04 prednisone AdvReac Palpitation Verified 01/14/22 13:04 s onions Allergy Severe tongue Uncoded 07/28/21 06:39 itchy and numbness bottom lip peanuts Allergy Mild nausea Uncoded 07/28/21 06:39 tomatoes Allergy Mild [place] Uncoded 07/28/21 06:39 stomach Steroids AdvReac Intermediate Palpitation Uncoded 07/28/21 06:39 s Tape AdvReac Mild Itching Uncoded 07/28/21 06:39 [facility] Medical History Abnormal mammogram Angina Asthma ASVD (arteriosclerotic vascular disease) COPD (chronic obstructive pulmonary disease) Coronary arteriosclerosis Cyst of breast Deep vein thrombosis (DVT) of axillary vein of right upper extremity Diverticulosis Fat necrosis of right breast Glaucoma History of COVID-19 Hyperlipidemia Hypertension Hypothyroidism Impaired vision in both eyes Impairment of balance Insomnia Recurrent falls Sleep apnea Weakness of left leg Surgical History History of eye surgery History of tubal ligation Family History Mother Type 1 diabetes mellitus FATHER Hypertension Grandfather/Grandmother Type 1 diabetes mellitus Hypertension COUSIN Glaucoma Social History Smoking and tobacco status: Former smoker Tobacco: How many years used: 10 Second hand smoke exposure: Yes Alcohol intake: current Substance use type: does not use Nohemi/jehovah's witness: Jewish Special nohemi needs: No Agree to transfusion: Yes Adopted: No Caregiver/support person: Yes Household members: spouse Housing: house Lives independently: Yes Highest education level completed: high school graduate Financial difficulty paying for basics: not applicable service: No Current occupational status: employed 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 Current occupational exposures/hazards: Yes Pets and animals: Yes Leisure activites: music and other History of recent travel: No Sexually active: Yes Do you think of yourself as: straight/heterosexual Current gender identity: female Seatbelt use: always Helmet use: No Drives intoxicated or rides with intoxicated cdl company driver: No Water heater temperature set < 120 degrees: Yes Working smoke detector in home: Yes Fire extinguisher in home: Yes Carbon monoxide detector in home: Yes Firearms in home: Yes Firearms unloaded and locked: Yes Medications Medications: Medications Generic Name Dose Route Start Last Admin Trade Name Freq PRN Reason Stop Dose Admin Albuterol/Ipratropium 3 ml 01/14/22 18:00 Ipratropium/Albuterol Vial.[facility] RTQ6H [facility] Amitriptyline HCl 75 mg 01/14/22 15:30 Amitriptyline Hcl 25 Mg Tablet PO QHS [facility] Azithromycin 500 mg 01/15/22 09:00 Azithromycin 250 Mg Tablet PO 01/18/22 08:59 DAILY [facility] Carvedilol 25 mg 01/14/22 21:00 Carvedilol 12.5 Mg Tablet PO BID [facility] Clonidine 0.1 mg 01/15/22 09:00 Clonidine Hcl 0.1 Mg Tablet PO DAILY [facility] Cyclobenzaprine HCl 10 mg 01/14/22 21:00 Cyclobenzaprine Hcl 10 Mg Tablet PO BID [facility] Enoxaparin Sodium 40 mg 01/15/22 09:00 Enoxaparin Sodium 40 Mg/0.4 Ml Syr SUBCUT DAILY [facility] Ergocalciferol unit 01/21/22 09:00 Ergocalciferol (Vitamin D2) 50,000 Unit Capsule PO WEEKLY [facility] Famotidine 20 mg 01/14/22 21:00 Famotidine 20 Mg Tablet PO BID [facility] Fluticasone Propionate puff 01/14/22 21:00 Fluticasone Propionate 110 Mcg Inh IH BID [facility] Gabapentin 100 mg 01/14/22 21:00 Gabapentin 100 Mg Capsule PO BID [facility] Sodium Chloride 500 mls @ 500 mls/hr 01/14/22 14:41 01/14/22 15:03 Sodium Chloride IV 01/14/22 15:40 500 mls/hr BOLUS STA Administration Sodium Chloride 1,000 mls @ 75 mls/hr 01/14/22 15:30 Sodium Chloride IV .[id number] [facility] CEFTRIAXONE/D5W 1 GM PREMIX 1 gm in 50 mls @ 75 mls/hr 01/15/22 09:00 Rocephin 1 Gm/50 Ml D5w IV 01/18/22 08:59 DAILY [facility] Levothyroxine Sodium 100 mcg 01/15/22 09:00 Levothyroxine Sodium 100 Mcg Tablet PO DAILY [facility] Nitroglycerin 0.4 mg 01/14/22 15:05 Nitroglycerin 0.4 Mg Tab.Subl SL Q5MIN X 3 DOSES PRN Chest Pain Non-Formulary Medication 81 mg 01/15/22 09:00 Aspirin PO DAILY [facility] Sodium Chloride 1 syr 01/14/22 12:56 01/14/22 13:36 0.9% Sodium Chloride 10 Ml Disp.Syrin IVF 1 syr PRN PRN Administration To flush IV Sucralfate 1 gm 01/14/22 21:00 Sucralfate 1 Gm Tablet PO BID [facility] Body Composition Height: 5 ft 3 in Weight: 195 lb 6 oz Body Mass Index (BMI): 34.6 Vital Signs Temperature: 97.8 F Pulse Rate: 94 Respiratory Rate: 18 Blood Pressure: 112/89 O2 Sat by Pulse Oximetry: 98 Physical Examination Appearance: Reports Ill-appearing Ill-appearing: Mild Pain Distress: Not Applicable Eyes: Reports DELORES, EOMI and Conjunctiva clear ENT: Reports Ears normal, Nose normal and Oropharynx normal Neck: Supple Respiratory: Reports Airway patent, Rhonchi and Wheezes Cardiovascular: Reports RRR, Pulses normal, No rub and No murmur GI/: Reports Soft, Nontender, No masses and Bowel sounds normal Musculoskeletal: Reports Normal strength, ROM intact, No edema and No calf tenderness Skin: Reports Warm, Dry and Normal color Neurological: Reports Sensation intact, Motor intact, Reflexes intact, Cranial nerves intact, Alert and Oriented Psychiatric: Reports Affect appropriate and Mood appropriate Lab/Tests/Diagnostic Imaging Lab/Tests/Diagnostic Imaging: Lab Review 01/14/22 01/14/22 01/14/22 13:05 13:05 13:15 WBC 13.67 H RBC 5.29 Hgb 15.3 Hct 44.2 MCV 83.6 MCH 28.9 MCHC 34.6 RDW Coeff of Lalo 13.6 Plt Count 270 Immature Gran % (Auto) 1.2 Neut % (Auto) 79.0 H Lymph % (Auto) 14.0 [place] % (Auto) 4.8 Eos % (Auto) 0.6 Baso % (Auto) 0.4 Neut # (Auto) 10.8 H Lymph # (Auto) 1.9 [place] # (Auto) 0.7 Eos # (Auto) 0.1 Baso # (Auto) 0.1 Immature Gran # (Auto) 0.2 Sodium Potassium Chloride Carbon Dioxide Anion Gap BUN Creatinine Estimated GFR (MDRD) BUN/Creatinine Ratio Glucose Calcium Total Bilirubin AST ALT Alkaline Phosphatase Total Protein Albumin Globulin Albumin/Globulin Ratio Amylase Lipase Urine Color Urine Clarity Urine pH Ur Specific [place] Urine Protein Urine Glucose (UA) Urine Ketones Urine Blood Urine Nitrite Urine Bilirubin Urine Urobilinogen Ur Leukocyte Esterase Urine Microscopic RBC Urine Microscopic WBC Ur Squamous Epith Cells Urine Bacteria Hyaline Casts Influ A Molecular Assay Negative by naat Influ B Molecular Assay Negative by naat SARS-CoV-2 Ag (Rapid) Negative 01/14/22 01/14/22 13:15 14:48 WBC RBC Hgb Hct MCV MCH MCHC RDW Coeff of Lalo Plt Count Immature Gran % (Auto) Neut % (Auto) Lymph % (Auto) [place] % (Auto) Eos % (Auto) Baso % (Auto) Neut # (Auto) Lymph # (Auto) [place] # (Auto) Eos # (Auto) Baso # (Auto) Immature Gran # (Auto) Sodium 134.0 L Potassium 4.73 Chloride 97.2 L Carbon Dioxide 17.8 L Anion Gap 23.73 BUN 68.8 H* Creatinine 2.83 H Estimated GFR (MDRD) 17.00 BUN/Creatinine Ratio 24.31 Glucose 127.8 H Calcium 10.63 H Total Bilirubin 0.84 AST 31.0 ALT 25.9 Alkaline Phosphatase 97.5 Total Protein 9.25 H Albumin 5.33 H Globulin 3.92 Albumin/Globulin Ratio 1.35 Amylase 80.2 Lipase 200.2 Urine Color Yellow Urine Clarity Clear Urine pH 5.0 Ur Specific [place] 1.020 Urine Protein Trace H Urine Glucose (UA) Negative Urine Ketones 1+ H Urine Blood Trace-lysed Urine Nitrite Negative Urine Bilirubin 1+ H Urine Urobilinogen 0.2 Ur Leukocyte Esterase 1+ H Urine Microscopic RBC 0-2 Urine Microscopic WBC 30-50 Ur Squamous Epith Cells 5-10 Urine Bacteria 3+ Hyaline Casts 0-2 Influ A Molecular Assay Influ B Molecular Assay SARS-CoV-2 Ag (Rapid) Orders Category Date Time Status [facility] ADMISSION 01/14/22 15:02 Active EKG-(ED ONLY) Stat CARDIO 01/14/22 12:57 Completed NEBULIZER TREATMENT Routine CARDIO 01/14/22 15:05 Ordered ACTIVITY .BR with BRP CARE 01/14/22 15:02 Active INTAKE & OUTPUT Q8HR CARE 01/14/22 15:02 Active IP: INSERT SALINE LOCK ONCE CARE 01/14/22 15:02 Active TELEMETRY MONITORING TELE CARE 01/14/22 15:02 Active VITAL SIGNS Q8HR CARE 01/14/22 15:02 Active REGULAR DIET DIETARY 01/14/22 Dinner Ordered ED MOTOR VEH[employer]LE [employer]S INTERPRETER APPLIED .ONCE EMERGENCY 01/14/22 12:57 Active ED IV/MEDIPORT/POWERPORT .ONCE EMERGENCY 01/14/22 12:57 Active AMYLASE Stat LAB 01/14/22 13:15 Completed CBC W/ AUTO DIFF DAILY@0600 LAB 01/15/22 06:00 Ordered CBC W/ AUTO DIFF DAILY@0600 LAB 01/16/22 06:00 Ordered CBC W/ AUTO DIFF Stat LAB 01/14/22 13:15 Completed COMPREHENSIVE METABOLIC PANEL DAILY@0600 LAB 01/15/22 06:00 Ordered COMPREHENSIVE METABOLIC PANEL DAILY@0600 LAB 01/16/22 06:00 Ordered COMPREHENSIVE METABOLIC PANEL Stat LAB 01/14/22 13:15 Completed COVID-19 ANTIGEN TEST Stat LAB 01/14/22 13:05 Completed FLU A/B MOLECULAR Stat LAB 01/14/22 13:05 Completed LIPASE Stat LAB 01/14/22 13:15 Completed URINALYSIS C & S IF INDICATED Stat LAB 01/14/22 14:48 Completed URINE CULTURE Stat LAB 01/14/22 14:48 Received 0.9 % Sodium Chloride [Saline Flush] MEDS 01/14/22 12:56 Active 1 syr IVF PRN PRN Amitriptyline HCl [Elavil] MEDS 01/14/22 15:30 Ordered 75 mg PO QHS Azithromycin [Zithromax] MEDS 01/15/22 09:00 Ordered 500 mg PO DAILY Carvedilol [Coreg] MEDS 01/14/22 21:00 Ordered 25 mg PO BID Ceftriaxone/D5w 1 gm Premix [Rocephin 1 gm/50 ml D5w] MEDS 01/15/22 09:00 Ordered 1 gm in 50 ml IV DAILY Clonidine HCl [Catapres] MEDS 01/15/22 09:00 Ordered 0.1 mg PO DAILY Cyclobenzaprine HCl [Flexeril] MEDS 01/14/22 21:00 Ordered 10 mg PO BID Enoxaparin Sodium [Lovenox] MEDS 01/15/22 09:00 Ordered 40 mg SUBCUT DAILY Ergocalciferol (Vitamin D2) [Drisdol] MEDS 01/21/22 09:00 Ordered DOSE unit PO WEEKLY Famotidine [Pepcid] MEDS 01/14/22 21:00 Ordered 20 mg PO BID Fluticasone Propionate 110 Mcg [Flovent Hfa 110 Mcg] MEDS 01/14/22 21:00 Ordered DOSE puff IH BID Gabapentin [Neurontin] MEDS 01/14/22 21:00 Ordered 100 mg PO BID Ipratropium/Albuterol Neb [Duoneb] MEDS 01/14/22 18:00 Ordered 3 ml NEB RTQ6H Levothyroxine Sodium [Synthroid] MEDS 01/15/22 09:00 Ordered 100 mcg PO DAILY Nitroglycerin [Nitrostat] MEDS 01/14/22 15:05 Ordered 0.4 mg SL Q5MIN X 3 DOSES PRN Promethazine HCl [Phenergan 25 mg/ml Vial] 25 mg MEDS 01/14/22 12:56 Discontinued 0.9 % Sodium Chloride [Sodium Chloride] 50 ml IV ONCE Sodium Chloride 0.9% [Sodium Chloride] 1,000 ml MEDS 01/14/22 15:30 Ordered IV 75 mls/hr Sodium Chloride 0.9% [Sodium Chloride] 500 ml MEDS 01/14/22 12:59 Discontinued IV BOLUS Sodium Chloride 0.9% [Sodium Chloride] 500 ml MEDS 01/14/22 14:41 Active IV BOLUS Sucralfate [Carafate] MEDS 01/14/22 21:00 Ordered 1 gm PO BID aspirin MEDS 01/15/22 09:00 Ordered 81 mg PO DAILY RESUSCITATION STATUS Routine OTHERS 01/14/22 15:[address] ABDOMEN/PELVIS WO CONTRAST Stat RADS 01/14/22 12:[address] HEAD W/O CONTRAST Stat RADS 01/14/22 12:56 Completed CXR [CHEST, 2 VIEWS PA & LAT] Stat RADS 01/14/22 12:56 Completed Medications Generic Name Dose Route Start Last Admin Trade Name Freq PRN Reason Stop Dose Admin Albuterol/Ipratropium 3 ml 01/14/22 18:00 Ipratropium/Albuterol Vial.Neb NEB RTQ6H [facility] Amitriptyline HCl 75 mg 01/14/22 15:30 Amitriptyline Hcl 25 Mg Tablet PO QHS [facility] Azithromycin 500 mg 01/15/22 09:00 Azithromycin 250 Mg Tablet PO 01/18/22 08:59 DAILY [facility] Carvedilol 25 mg 01/14/22 21:00 Carvedilol 12.5 Mg Tablet PO BID [facility] Clonidine 0.1 mg 01/15/22 09:00 Clonidine Hcl 0.1 Mg Tablet PO DAILY [facility] Cyclobenzaprine HCl 10 mg 01/14/22 21:00 Cyclobenzaprine Hcl 10 Mg Tablet PO BID [facility] Enoxaparin Sodium 40 mg 01/15/22 09:00 Enoxaparin Sodium 40 Mg/0.4 Ml Syr SUBCUT DAILY [facility] Ergocalciferol unit 01/21/22 09:00 Ergocalciferol (Vitamin D2) 50,000 Unit Capsule PO WEEKLY [facility] Famotidine 20 mg 01/14/22 21:00 Famotidine 20 Mg Tablet PO BID [facility] Fluticasone Propionate puff 01/14/22 21:00 Fluticasone Propionate 110 Mcg Inh IH BID [facility] Gabapentin 100 mg 01/14/22 21:00 Gabapentin 100 Mg Capsule PO BID [facility] Sodium Chloride 500 mls @ 500 mls/hr 01/14/22 14:41 01/14/22 15:03 Sodium Chloride IV 01/14/22 15:40 500 mls/hr BOLUS STA Administration Sodium Chloride 1,000 mls @ 75 mls/hr 01/14/22 15:30 Sodium Chloride IV .[id number] [facility] CEFTRIAXONE/D5W 1 GM PREMIX 1 gm in 50 mls @ 75 mls/hr 01/15/22 09:00 Rocephin 1 Gm/50 Ml D5w IV 01/18/22 08:59 DAILY [facility] Levothyroxine Sodium 100 mcg 01/15/22 09:00 Levothyroxine Sodium 100 Mcg Tablet PO DAILY [facility] Nitroglycerin 0.4 mg 01/14/22 15:05 Nitroglycerin 0.4 Mg Tab.Subl SL Q5MIN X 3 DOSES PRN Chest Pain Non-Formulary Medication 81 mg 01/15/22 09:00 Aspirin PO DAILY [facility] Sodium Chloride 1 syr 01/14/22 12:56 01/14/22 13:36 0.9% Sodium Chloride 10 Ml Disp.Syrin IVF 1 syr PRN PRN Administration To flush IV Sucralfate 1 gm 01/14/22 21:00 Sucralfate 1 Gm Tablet PO BID [facility] Discontinued Medications Generic Name Dose Route Start Last Admin Trade Name Freq PRN Reason Stop Dose Admin Promethazine HCl 25 mg/ Sodium 51 mls @ 75 mls/hr 01/14/22 12:56 01/14/22 13:32 Chloride IV 01/14/22 13:36 75 mls/hr ONCE STA Administration Sodium Chloride 500 mls @ 500 mls/hr 01/14/22 12:59 01/14/22 13:31 Sodium Chloride IV 01/14/22 13:58 500 mls/hr BOLUS STA Administration Assessment (1) STEPHANY (acute kidney injury): Status: Acute Code(s): N17.9 - Acute kidney failure, unspecified SNOMED Code(s): 73700120 (2) Pneumonia: Status: Acute Code(s): J18.9 - Pneumonia, unspecified organism SNOMED Code(s): 513569092 Assessment: she does appear dehydrated and will need iv fluid support, her ct scan does confirm questionable pneumonia(incidentally her also being admitted for pneumonia). Plan Plan: iv fluids, antiemetics, antbx, follow renal fuction.
[2022-01-14] MEDS ORDERED: ZOFRAN 4 MG/2 ML IVP PRN (15:28)
[2022-01-14] MEDS ORDERED: PHENERGAN 25 MG/ML VIAL 25 MG in SODIUM CHLORIDE 50 ML IV PRN (15:28)
[2022-01-14] MEDS ORDERED: SODIUM CHLORIDE 1,000 ML IV SCH ×2 (15:30→16:03)
[2022-01-14] MEDS ORDERED: TESSALON PERLES PO PRN (15:30)
[2022-01-14 15:46] VITALS: TEMP 96.7; BMI 34.4
[2022-01-14 16:51] LABS: VBG HCO3 19.1 (22-26); VBG OXYGEN SATURATION 36.6 (60-80); VBG PH 7.32 (7.30-7.40)
--- NOTE | 2022-01-14 17:50 | PCM.DC ---
Final Diagnosis:stephany, pneumonia Physical Exam Appearance: Ill-appearing Ill-appearing: Mild Pain Distress: None Eyes: DELORES, EOMI and Conjunctiva clear ENT: Ears normal, Nose normal and Oropharynx normal Neck: Supple Respiratory: Airway patent, Breath sounds diminished, Rhonchi and Wheezes Cardiovascular: RRR, Pulses normal and No rub GI/: Soft, Nontender and No masses Musculoskeletal: Normal strength, ROM intact and No edema Skin: Warm, Dry and Normal color Neurological: Sensation intact, Motor intact, Reflexes intact, Cranial nerves intact, Alert and Oriented Psychiatric: Affect appropriate, Mood appropriate and Anxious (1) STEPHANY (acute kidney injury): Status: Acute Code(s): N17.9 - Acute kidney failure, unspecified SNOMED Code(s): 82515688 (2) Pneumonia: Status: Acute Code(s): J18.9 - Pneumonia, unspecified organism SNOMED Code(s): 715125467 Reason for Hospitalization: admitted for recurrent, persistent vomiting x 2 weeks with resultant stephany with gfr down to 17 and radiograph ?left lower lobe pneumonia--abg did reveal ph 7.32 Prognosis/Condition at Discharge: fair Medications at Discharge: Ambulatory Orders Medication Instructions Recorded nitroglycerin 0.4 mg sublingual 0.4 mg SUBLINGUAL Q5MIN X 3 DOSES 08/26/17 tablet (Nitrostat) PRN sucralfate 1 gram tablet (Carafate) 1 g PO BID tab 09/29/20 ergocalciferol (vitamin D2) 1,250 1,250 mcg PO WEEKLY 07/28/21 mcg (50,000 unit) capsule fluticasone propionate 110 2 inh INHALATION BID 07/28/21 mcg/actuation HFA aerosol inhaler (Flovent HFA) gabapentin 100 mg capsule 100 mg PO BID 07/28/21 albuterol sulfate 90 mcg/actuation 2 puff INHALATION Q4-6H PRN 01/14/22 aerosol inhaler (ProAir HFA) amitriptyline 50 mg tablet 75 mg PO QHS 01/14/22 aspirin 81 mg capsule 81 mg PO DAILY 01/14/22 carvedilol 25 mg tablet 25 mg PO BID 01/14/22 chlorthalidone 25 mg tablet 25 mg PO DAILY 01/14/22 clonidine HCl 0.1 mg tablet 0.1 mg PO DAILY 01/14/22 cyclobenzaprine 10 mg tablet 10 mg PO BID 01/14/22 famotidine 20 mg tablet 20 mg PO BID 01/14/22 ipratropium 0.5 mg-albuterol 3 mg 3 ml INHALATION QID 01/14/22 (2.5 mg base)/3 mL nebulization soln levothyroxine 100 mcg tablet 100 mcg PO DAILY 01/14/22 spironolactone 25 mg tablet 25 mg PO DAILY 01/14/22 Lab/Diagnostics: noted gfr 17, normal potassium, before mentioned radiographs Education Provided to Patient and Family: none Follow-ups: pcp one week Discharge Disposition: Transfer Hospital Course: she did well during hospitalization, however her abg did reveal ph 7.32---she was agreeable to transfer ?consideration for nephrology involvement if her renal function continues to decline. Plan: transfer to [facility]
[2022-01-14] MEDS ORDERED: DUONEB NEB SCH (18:00)
[2022-01-14] MEDS ORDERED: CARAFATE PO SCH (21:00)
[2022-01-14] MEDS ORDERED: COREG PO SCH (21:00)
[2022-01-14] MEDS ORDERED: NEURONTIN PO SCH (21:00)
[2022-01-14] MEDS ORDERED: ELAVIL PO SCH (21:00)
[2022-01-14] MEDS ORDERED: PEPCID PO SCH (21:00)
[2022-01-14] MEDS ORDERED: FLEXERIL PO SCH (21:00)
[2022-01-14] MEDS ORDERED: PEPCID IVP SCH (21:00)
[2022-01-14] MEDS ORDERED: FLOVENT HFA 110 MCG IH SCH (21:00)
[2022-01-15] MEDS ORDERED: ASPIRIN CHEWABLE PO SCH (09:00)
[2022-01-15] MEDS ORDERED: ZITHROMAX PO SCH (09:00)
[2022-01-15] MEDS ORDERED: CATAPRES PO SCH (09:00)
[2022-01-15] MEDS ORDERED: LOVENOX SUBCUT SCH ×2 (09:00)
[2022-01-15] MEDS ORDERED: SYNTHROID PO SCH (09:00)
[2022-01-15] MEDS ORDERED: ROCEPHIN 1 GM/50 ML D5W 1 GM/50 ML BAG IV SCH (09:00)
[2022-01-21] MEDS ORDERED: DRISDOL PO SCH (09:00)
== END 2022-01-14 19:20 | disposition short-term general hospital (02) | DRG 682 ==
LOC: ED 12:44 → MEDSURG A 15:07
PROVIDERS: ADMIT Family Medicine; ATTEND Family Medicine
DX: R19.7 Diarrhea, unspecified; E03.9 Hypothyroidism, unspecified; N17.9 Acute kidney failure, unspecified; R63.0 Anorexia; Z86.718 Personal history of other venous thrombosis and embolism; R11.2 Nausea with vomiting, unspecified; J18.9 Pneumonia, unspecified organism; Z79.01 Long term (current) use of anticoagulants; R42 Dizziness and giddiness; Z20.822 Contact with and (suspected) exposure to COVID-19; I10 Essential (primary) hypertension; E86.0 Dehydration; J44.1 Chronic obstructive pulmonary disease with (acute) exacerbation; R53.1 Weakness; Z86.16 Personal history of COVID-19; Z79.899 Other long term (current) drug therapy; I25.10 Atherosclerotic heart disease of native coronary artery without angina pectoris; E78.5 Hyperlipidemia, unspecified; Z51.81 Encounter for therapeutic drug level monitoring; J45.909 Unspecified asthma, uncomplicated